=== PATIENT | male | born 1965 | race Caucasian/White ===

== ENCOUNTER 2021-10-17 17:15 | Emergency (ER) | payer OTHER, SELFPAY ==
[2021-10-17 17:16] VITALS: BP 156/88; PULSE 72; RESP 16; TEMP 36.4; O2SAT 100; BMI 43.0
[2021-10-17] MEDS: Lidocaine 1% (20 ml mdv) 20 ML Vial INFILT (18:05)
--- NOTE | 2021-10-17 18:16 | EDS_ITS ---
HPI History of Present Illness Chief Complaint: Head Injury Informant: patient and spouse/S.O. Narrative Narrative: 56-year-old male sustained a mechanical fall striking his head on the ground. No loss of conscious. No nausea vomiting. He is not currently on any blood thinners. Patient notes laceration to the vertex of his scalp. [facility] Medical History (Updated 10/17/21 @ 18:[address] Marito Alfaro DO) Chronic venous insufficiency Colon cancer Diabetes mellitus Hypercholesteremia Sleep apnea Home Medications citalopram 40 mg PO DAILY 04/08/15 [History Last Taken Unknown] fluticasone propionate 2 spray NASAL DAILY 04/08/15 [History Last Taken Unknown] multivitamin with folic acid [Thera] 1 tab PO DAILY 04/08/15 [History Last Taken Unknown] sitagliptin [Januvia] 100 mg PO DAILY 04/08/15 [History Last Taken Unknown] ferrous sulfate 324 mg PO BIDCM 06/21/16 [History Last Taken Unknown] insulin detemir U-100 [Levemir FlexPen] 20 units SUBCUT QHS 06/21/16 [History Last Taken Unknown] lisinopril 20 mg PO DAILY 06/21/16 [History Last Taken Unknown] metformin 1,000 mg PO BID 06/21/16 [History Last Taken Unknown] Allergy/AdvReac Type Severity Reaction Status Date / Time Tetanus Vaccines and Toxoid AdvReac Nausea Verified 10/17/21 17:17 [Tetanus Vaccines & Toxoid] Social History (Updated 10/17/21 @ 18:[address] Marito Alfaro DO) Smoking Status: Never smoker substance use type: does not use ROS ROS ED Constitutional Constitutional ED: Denies chills, fever(s) or weight loss Eyes Eyes: Denies change in vision or diplopia ENT ENT ED: Denies ear pain, rhinorrhea or sore throat Cardiovascular Cardiovascular: Denies chest pain, orthopnea, palpitations or racing heartbeat Respiratory/Chest Respiratory/Chest: Denies cough, dyspnea or orthopnea Gastrointestinal Gastrointestinal: Denies abdominal pain, diarrhea, nausea or vomiting Genitourinary Genitourinary ED: Denies dysuria, hematuria or urinary frequency Musculoskeletal Musculoskeletal: Denies arthralgias or myalgias Integumentary Reports other Details: Scalp laceration ; Denies abscess or rash Neurologic Neurologic: Denies headache(s) or weakness Psychiatric Psychiatric: Denies anxiety, depression, suicidal ideation or suicidal thoughts Endocrine Endocrinology: Denies polydipsia, polyphagia or polyuria Allergic/Immunologic Allergic/Immunologic ED: Denies mouth swelling, tongue swelling or urticaria EXAM Physical Exam Const Vital Signs: 10/17/21 17:16 Temperature 97.5 F L Temperature Source Temporal Pulse Rate 72 Respiratory Rate 16 Blood Pressure 156/88 H Blood Pressure Mean 110 Pulse Ox 100 Positive well nourished and well developed General Appearance ED: well developed HEENT Reports normocephalic, head/scalp atraumatic, TM's clear and moist mucous membranes HEENT Narrative: See skin exam trauma Tympanic Membrane ED: Yes TM's clear Eyes PERRL and EOMs intact bilaterally Neck no lymphadenopathy, supple and no JVD Resp normal respiratory effort and clear to auscultation bilaterally Cardio regular rate, regular rhythm and no murmurs Rate: regular rate GI normal to inspection, nondistended, normoactive bowel sounds and non-tender Palpation: soft Back/Spine no CVA tenderness and normal ROM Extremity normal to inspection General Extremety ED: Negative for edema General Extremity: Negative for edema Neuro oriented x3 and CN's II-XII intact bilaterally Sensorium / Orientation: alert Motor Exam: strength 5/5 throughout Psych mental status grossly normal Mood & Affect: Negative for depressed or tearful Skin no rashes or lesions noted Skin Narrative: There is a 6 cm linear laceration. The medial 2 cm is a superficial skin tear. The lateral 4 cm distal full-thickness laceration. Mild venous oozing. MDM MDM MDM Narrative Medical decision making narrative: Wound was locally anesthetized using 1% lidocaine. Is washed with Shur-Clens and explored. The 4 cm laceration that was full-thickness was closed using 6 simple interrupted 4-0 Ethilon sutures. The superficial skin tear had the remaining skin smoothed out. It was dressed with a Vaseline coated gauze and then dressed with absorbent pad. Wound care discussed with patient return if worsening or concerns Discharge Plan Triage Chief Complaint: Head Injury ED Provider: Marito Alfaro Dx/Rx/DC Orders Clinical Impression: Laceration of scalp Instructions: ED Laceration Scalp Stitches or Steven Prescriptions: No Action citalopram 40 MG tablet 40 mg PO DAILY RF: 0 fluticasone propionate 1 SPRAY Nasal.Sry 2 spray NASAL DAILY RF: 0 sitagliptin [Januvia] 100 MG tablet 100 mg PO DAILY RF: 0 multivitamin with folic acid [Thera] 1 TABLET tablet 1 tab PO DAILY RF: 0 lisinopril 20 MG tablet 20 mg PO DAILY RF: 0 ferrous sulfate 325 MG tablet 324 mg PO BIDCM RF: 0 metformin 1,000 MG tablet 1,000 mg PO BID RF: 0 insulin detemir U-100 [Levemir FlexTouch U-100 Insuln] 100 UNITS/ML Insuln.Pen 20 units subcut QHS RF: 0 Primary Care Provider: Amandeep Rothman Referrals: Amandeep Rothman MD [Primary Care Provider] - 7 Days for suture removal Disposition Disposition: Home, Self Care
[2021-10-17 18:23] VITALS: BP 161/76; PULSE 68; RESP 18; O2SAT 99
== END 2021-10-17 18:28 | disposition home or self-care (01) ==
PROVIDERS: Emergency Provider Emergency Medicine; PCP Family Medicine
DX: S01.01XA Laceration without foreign body of scalp, initial encounter (principal); W19.XXXA Unspecified fall, initial encounter; Y93.9 Activity, unspecified; Y92.9 Unspecified place or not applicable; I87.2 Venous insufficiency (chronic) (peripheral); E11.9 Type 2 diabetes mellitus without complications; E78.00 Pure hypercholesterolemia, unspecified; G47.30 Sleep apnea, unspecified; Z85.038 Personal history of other malignant neoplasm of large intestine; Z79.4 Long term (current) use of insulin; Z79.899 Other long term (current) drug therapy
CPT/HCPCS: 12002; 99284

== ENCOUNTER 2023-05-02 16:15 | Emergency (ER) | payer MEDICAID, SELFPAY ==
[2023-05-02 16:16] VITALS: BP 115/68; PULSE 84; RESP 16; TEMP 36.4; O2SAT 95; BMI 42.6
--- NOTE | 2023-05-02 16:53 | EX.ED.DYSGE1 ---
HPI History of Present Illness Chief Complaint: Nosebleed Narrative Narrative: Patient presents with epistaxis. This started just prior to arrival. No trauma. He has a history of epistaxis in the past. He is not anticoagulated [facility] Medical History (Updated 05/02/23 @ 16:[address] Brandon Burns MD) Chronic venous insufficiency Colon cancer Diabetes mellitus Hypercholesteremia Sleep apnea Home Medications citalopram 40 mg tablet 40 mg PO DAILY 04/08/15 [History Last Taken Unknown] fluticasone propionate 50 mcg/actuation nasal spray,suspension 2 spray DAILY 04/08/15 [History Last Taken Unknown] multivitamin with folic acid 400 mcg tablet (Thera) 1 tab PO DAILY 04/08/15 [History Last Taken Unknown] sitagliptin phosphate 100 mg tablet (Januvia) 100 mg PO DAILY 04/08/15 [History Last Taken Unknown] ferrous sulfate 325 mg (65 mg iron) tablet 324 mg PO BIDCM 06/21/16 [History Last Taken Unknown] insulin detemir U-100 100 unit/mL (3 mL) subcutaneous pen (Levemir FlexTouch U-100 Insulin) 20 units subcut QHS 06/21/16 [History Last Taken Unknown] lisinopril 20 mg tablet 20 mg PO DAILY 06/21/16 [History Last Taken Unknown] metformin 1,000 mg tablet 1,000 mg PO BID 06/21/16 [History Last Taken Unknown] Allergy/AdvReac Type Severity Reaction Status Date / Time Tetanus Vaccines and Toxoid AdvReac Nausea Verified 05/02/23 16:18 [Tetanus Vaccines & Toxoid] Social History (Updated 10/17/21 @ 18:[address] Marito Alfaro, DO) Smoking Status: Never smoker substance use type: does not use ROS ROS ED ROS Narrative Review of systems: All systems negative except as indicated General: No fever Eyes: No visual changes ENT: As in HPI Neck: No neck pain Hematologic: No easy bleeding or easy bruising EXAM Physical Exam Narrative Exam Narrative: Physical exam General: Well nourished, Well developed, No Acute Distress Head: Normocephalic, Atraumatic Eyes: Conjunctiva not pale ENT: Patient has a nasal septal defect on the lower part of the defect midline there is a small area that is actively bleeding. No other signs of bleeding Neck: Supple, Nontender, No lymphadenopathy Skin: Normal color, No rash Const Vital Signs: 05/02/23 16:16 Temperature 97.6 F L Temperature Source Temporal Pulse Rate 84 Respiratory Rate 16 Blood Pressure 115/68 Blood Pressure Mean 83 Pulse Ox 95 Oxygen Delivery Method Room Air MDM MDM MDM Narrative Medical decision making narrative: Patient has a nasal septal defect, he tells me he is unaware of this although he has seen ENT in the past. He was cauterized, see procedure note otherwise he has no further bleeding appears well. There is no reasons for antibiotics inside impacted, there is no reasons for imaging since this looks like a chronic defect. I will refer back to ENT. Procedures Other Procedures Procedure(s): Epistaxis Verbal consent I used silver nitrate stick to cauterize the small punctate bleeding from the nasal septal defect. Bleeding stopped patient tolerated procedure well. Discharge Plan Triage Chief Complaint: Nosebleed ED Provider: Brandon Burns Dx/Rx/DC Orders Clinical Impression: Epistaxis, Nasal septal defect Instructions: Nosebleed Prescriptions: No Action citalopram 40 MG tablet 40 mg PO DAILY Label Comments: depression fluticasone propionate 1 SPRAY spray,suspension 2 spray NASAL DAILY Label Comments: allergies sitagliptin phosphate [Januvia] 100 MG tablet 100 mg PO DAILY Label Comments: diabetes multivitamin with folic acid [Thera] 1 TABLET tablet 1 tab PO DAILY Label Comments: vitamin supplement lisinopril 20 MG tablet 20 mg PO DAILY ferrous sulfate 325 MG tablet 324 mg PO BIDCM metformin 1,000 MG tablet 1,000 mg PO BID insulin detemir U-100 [Levemir FlexTouch U100 Insulin] 100 UNITS/ML insulin pen 20 units subcut QHS Primary Care Provider: Amandeep Rothman Referrals: Amandeep Rothman MD [Primary Care Provider] - Agustin Chu MD [Med Staff - Active Staff] - 3-5 Days Disposition Disposition: Home, Self Care
== END 2023-05-02 17:14 | disposition home or self-care (01) ==
PROVIDERS: Emergency Provider Emergency Medicine; PCP Family Medicine; Visit Provider Emergency Medicine
DX: R04.0 Epistaxis (principal); E11.9 Type 2 diabetes mellitus without complications; Z79.4 Long term (current) use of insulin; E78.00 Pure hypercholesterolemia, unspecified; J34.2 Deviated nasal septum; Z79.899 Other long term (current) drug therapy; Z79.84 Long term (current) use of oral hypoglycemic drugs
CPT/HCPCS: 30901; 99282

== ENCOUNTER 2023-05-19 16:00 | Outpatient (RCR) | payer MEDICAID, SELFPAY ==
--- NOTE | 2023-04-11 17:52 | HP.OTEVAL ---
Patient's Visit Information ROBERT OVIEDO is a 57 year old M, referred to Occupational Therapy by Dr. Ash Peñaloza MD, with a diagnosis of Right CTS/ Ulnar nerve. 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 pt states he has had tingling and numbness of BUE for over a year. pt states he has had right CTR and Ulnar- pt had had left CTR done several yeas ago-. pt states he was working for [employer] until prior to his right CTR and ulnar nerve sx. 2020. pt is poor historian on dates, dx and procedures to right/left UE/ and neck. pt is right handed. 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 pt will demo increase bilateral automat car attendant strength by 5# or greater to increase pts ind. with opening jar lids by d/c. pt will demo understanding of HEP to increase UB strength for increase ind,with ADls by d.c Goal:: pt will demo understanding of adaptive anurag. ie terrazas ring in zipper, rubber band button etc. to increase pts ind to HEENA by d.c. pt will demo understanding of ad. eq. to increase pts ind. by d/c. 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 pt would benefit from skilled OT services to ed. pt on strengthening (postural and UB/automat car attendant pinch ) and ad. eq. or home modification to continue to increase his ind. with dressing tasks. Today therapist ed. dx and pt will return for 2-3 visits to ed. on HEP - pt will need handouts to follow HEP. Once pt demo ind. with HEP he will be d/c. pt demo understanding and agree to POC. Rehabilitation Potential: Good - Anticipated Interventions Strengthening, Joint Protection/Energy Conservation, Ergonomic Education, ADL Training, Education re assistive Equipment, Education re Diagnosis, Home Program - Visit Plan Frequency: 1-2x /Week Duration: 2-4 Weeks TEXT: Thank you for the opportunity to evaluate your patient. For Medicare and Medicare HMO plans, please review the plan of care and approve it. It will need to be FAXED BACK to us at [phone] for Medicare purposes. Please let me know if there are questions or concerns regarding this plan of care. Physician Signature: Date:
--- NOTE | 2023-05-19 16:54 | HP.OT.NRP ---
Patient Information Patient Information: ROBERT OVIEDO was seen in my office for initial evaluation on 04/11/23. The following Plan of Care was established for this patient: POC Established Initial Frequency: 1-2x /Week Initial Duration: 2-4 Weeks Plan: Cont POC Anticipated Interventions Anticipated Interventions: Strengthening, Joint Protection/Energy Conservation, Ergonomic Education, ADL Training, Education re assistive Equipment, Education re Diagnosis and Home Program Last Seen Last Seen: This patient was last seen in our office 05/19/23. Pertinent comments regarding their Occupational therapy will appear below: Patient seen for a total of 6 visits to improve UB strength and establish a HEP. Patient indep with theraband exercises to improve and maintain upper body strength as well as nerve glide exercises to maintain nerve health and ROM. Patient continues to report bilateral arm numbness from shoulders to hands with no improvement. Discussed following up with medical team to further evaluate this. Patient discharged from OT at this time. At this point I will be discontinuing this patient from occupational therapy. I would be happy to see this patient again in the future if found appropriate by the physician. Thank you! Jessi Eldridge
== END 2023-05-19 19:00 | disposition home or self-care (01) ==
LOC: OT 16:00
PROVIDERS: PCP Family Medicine; Referring Provider Orthopaedic Surgery; Visit Provider Orthopaedic Surgery
DX: G56.01 Carpal tunnel syndrome, right upper limb (principal); G56.23 Lesion of ulnar nerve, bilateral upper limbs; M48.02 Spinal stenosis, cervical region; E11.43 Type 2 diabetes mellitus with diabetic autonomic (poly)neuropathy; C77.2 Secondary and unspecified malignant neoplasm of intra-abdominal lymph nodes; Z79.4 Long term (current) use of insulin
CPT/HCPCS: 97110; 97166; 97530

== ENCOUNTER 2024-05-03 12:01 | Inpatient (IN) | payer MEDICAID, SELFPAY ==
[2024-05-03] VITALS (10 sets, daily range): BP systolic 91–139; BP diastolic 60–93; PULSE 90–99; RESP 12–20; TEMP 36.6–37.3; O2SAT 89–100; BMI 36.7
--- NOTE | 2024-05-03 12:59 | CT_ITS ---
STUDY: CT BRAIN WITHOUT CONTRAST REASON FOR EXAM: Male, 58 years old. Injury due to syncopal episode. RADIATION DOSAGE (If Supplied By Facility): CTDIvol = ( 44.99 ) mGy, DLP = ( 866.41 ) mGycm TECHNIQUE: Transaxial CT imaging of the brain was performed without administration of intravenous contrast material. Individualized dose optimization techniques were used for this CT. COMPARISON: No relevant priors. FINDINGS: Normal soft tissue structures. Normal calvarium. There is mild cerebral atrophy with widening of the extra-axial spaces and ventricular dilatation. Normal white matter tracts of the cerebral hemispheres. Normal basal ganglia and thalami. Normal brainstem. Normal cerebellum. There is no intracranial hemorrhage. There are no findings of an acute ischemic infarction. Atherosclerotic plaque formation of the cavernous portions of the internal carotid arteries bilaterally. Mild mucosal thickening of the ethmoid sinuses bilaterally CT/Brain/Head without Contrast IMPRESSION: Chronic involutional changes of the brain. Electronically Signed: Kain Pastrana MD at 15:07 EDT ,
--- NOTE | 2024-05-03 13:00 | EKG12_ITS ---
Test Reason : SYNCOPE Blood Pressure : / mmHG Vent. Rate : 090 BPM Atrial Rate : 090 BPM P-R Int : 174 ms QRS Dur : 092 ms QT Int : 390 ms P-R-T Axes : 061 003 062 degrees QTc Int : 477 ms Normal sinus rhythm Normal ECG Confirmed by ISAAC RENEE, LINSEY ([id number]), managing editor EDITH HERNANDEZ ([id number]) on 05/04/2024 1:42:13 PM Referred By: Confirmed By:LINSEY GRAY MD
--- NOTE | 2024-05-03 13:03 | CT_ITS ---
STUDY: CT CHEST, ABDOMEN T PELVIS WITHOUT CONTRAST REASON FOR EXAM: Male, 58 years old. Pulmonary embolism. Possible rib fracture, syncope episode RADIATION DOSAGE (If Supplied By Facility): CTDIvol = ( 26.76 ) mGy, DLP = ( 2448.32 ) mGycm TECHNIQUE: Transaxial imaging was performed without the administration of intravenous contrast material. Individualized dose optimization techniques were used for this CT. COMPARISON: No relevant priors. FINDINGS: CHEST Minimal increased markings at the lung bases slightly more prominent on the left side suggestive of mild scarring. There is no demonstrated pleural abnormality. There are calcifications of the coronary arteries. There are small lymph nodes within the mediastinum, which are normal in size and morphology most compatible with reactive lymph hyperplasia. Normal hilar regions. Normal unenhanced pulmonary arteries. There is atherosclerotic calcification of the aortic arch with tortuosity and elongation of the aortic arch and descending thoracic aorta. There are multi-level degenerative changes of the thoracic spine. ABDOMEN Normal liver. There are multiple gallstones. Normal spleen. Normal pancreas. Normal bilateral adrenal glands. Normal right kidney. Normal left kidney. Normal visualized stomach. Normal small intestine. There are multiple colonic diverticula consistent with diverticulosis. The appendix is visualized and appears normal. There is scattered atherosclerotic calcification of the abdominal aorta, without a demonstrated aneurysm. Normal inferior vena cava. Normal retroperitoneum. There is a small umbilical hernia containing fat. There is a 2.1 cm fat-containing right inguinal lymph node. Bilateral inguinal lymph nodes. There are degenerative changes of the visualized lumbar spine. 50% loss of height of the L5 vertebrae. PELVIS Normal urinary bladder. Prostatic calcifications. There is no pelvic fluid. There is no pelvic lymphadenopathy or mass lesion. There is diffuse atherosclerotic calcification of the pelvic arteries. CT/CT Chest, Abd, Pelvis WO Cont IMPRESSION: Mild increased markings at the lung bases suggestive of scarring slightly more prominent on the left side. Small bilateral inguinal hernias 50% loss of height of the L5 vertebra. Sigmoid diverticulosis. Electronically Signed: Kain Pastrana MD at 15:14 EDT ,
--- NOTE | 2024-05-03 13:07 | EDS_ITS ---
HPI History of Present Illness Chief Complaint: Syncope Informant: patient and family Narrative Narrative: 58-year-old diabetic male presenting to the emergency room chief complaint of syncope. Patient states that a couple nights ago he got up started feeling a l ittle nauseous lightheaded and having a syncopal episode when she fell into the door. He notes abrasion to the forehead and injury to the left ribs. Today he had incontinence while sitting in his chair sleeping. He states that that is not necessarily uncommon for him but seems to have been increasing in frequency recently. He was at the wound center about a month ago and was on antibiotics for some lower extremity infection. He states that he had significant lymphedema which has gotten better. He has not gone back to the wound center. Family states that his color seems off. Patient states that he feels poorly. [facility] Medical History Colon cancer Chronic venous insufficiency Sleep apnea Hypercholesteremia Diabetes mellitus Home Medications ?Medication ?Instructions ?Recorded ?Last Taken ?Type lisinopril 20 mg tablet 20 mg PO DAILY BLOOD PRESSURE 06/21/16 Unknown History duloxetine 30 mg capsule,delayed 30 mg PO DAILY DEPRESSION 05/03/24 Unknown History release furosemide 40 mg tablet 40 mg PO DAILY EDEMA 05/03/24 Unknown History insulin glargine 100 unit/mL (3 30 unit subcut QPM DIABETES 05/03/24 Unknown History mL) subcutaneous pen (Lantus Solostar U-100 Insulin) metformin 500 mg tablet,extended 2,000 mg PO QPM DIABETES 05/03/24 Unknown History release 24 hr pravastatin 40 mg tablet 40 mg PO DAILY CHOLESTEROL 05/03/24 Unknown History sertraline 100 mg tablet 200 mg PO DAILY 05/03/24 Unknown History spironolactone 25 mg tablet 25 mg PO DAILY BLOOD PRESSURE 05/03/24 Unknown History Allergy/AdvReac Type Severity Reaction Status Date / Time Tetanus Vaccines and Toxoid AdvReac Nausea Verified 05/02/23 16:18 (Tetanus Vaccines & Toxoid) Social History Smoking Status: Never smoker substance use type: does not use ROS ROS ED Constitutional Constitutional ED: Denies chills, fever(s) or weight loss Eyes Eyes: Denies change in vision or diplopia ENT ENT ED: Reports other Details: Nasal congestion ; Denies ear pain, rhinorrhea or sore throat Cardiovascular Cardiovascular: Reports other Details: Syncope. Left anterior and mid axillary rib pain ; Denies orthopnea, palpitations or racing heartbeat Respiratory/Chest Respiratory/Chest: Reports cough; Denies dyspnea or orthopnea Gastrointestinal Gastrointestinal: Denies abdominal pain, diarrhea, nausea or vomiting Genitourinary Genitourinary ED: Denies dysuria, hematuria or urinary frequency Musculoskeletal Musculoskeletal: Denies arthralgias or myalgias Integumentary Reports other Details: Forehead abrasion ; Denies abscess or rash Neurologic Neurologic: Denies headache(s) or weakness Psychiatric Psychiatric: Denies anxiety, depression, suicidal ideation or suicidal thoughts Endocrine Endocrinology: Denies polydipsia, polyphagia or polyuria Allergic/Immunologic Allergic/Immunologic ED: Denies mouth swelling, tongue swelling or urticaria EXAM Physical Exam Const Vital Signs: 05/03/24 12:01 05/03/24 12:01 05/03/24 13:26 Temperature 97.9 F Temperature Source Temporal Pulse Rate 94 95 Respiratory Rate 14 12 Respiratory Effort Normal Non-Labored Respiratory Pattern Normal Blood Pressure 97/74 115/67 Blood Pressure Mean 81 83 Pulse Ox 98 100 Oxygen Delivery Method Room Air Room Air 05/03/24 14:15 05/03/24 15:15 05/03/24 16:00 Temperature 98.2 F 99 F 99 F Temperature Source Temporal Oral Oral Pulse Rate 90 92 99 Respiratory Rate 14 14 13 Respiratory Effort Respiratory Pattern Blood Pressure 136/79 H 139/93 H 118/70 Blood Pressure Mean 98 108 86 Pulse Ox 97 93 93 Oxygen Delivery Method Room Air Room Air Room Air MDM MDM MDM Narrative Medical decision making narrative: Differential diagnosis includes cellulitis syncope ACS cardiac dysrhythmia. Electrolyte abnormalities dehydration intracranial hemorrhage/hematoma, skull fracture rib fracture chest contusion. CT head demonstrates no acute fracture or hemorrhage or hematoma. CT of the chest was obtained which on my review demonstrates a nondisplaced rib fracture of about ribs 5 anterior lateral left side. Please see radiology read of the CTs for further details. White count returns at 8.2 with a hemoglobin 12.8 and platelet count of 258. INR 1.5 with a PTT of 35 glucose 554 lactic acid 1.7 creatinine now 6.40 with a BUN of 69. I believe this to be new from what my understanding of his prior labs are. CO2 is 24 anion gap of 7. Urinalysis demonstrates no overt infection lipase curiously greater than 250 troponin 9 liver enzymes showed only an alk phos of 121. Wound culture and blood cultures were obtained. Patient received vancomycin and Zosyn I ordered IV fluids. He has received morphine and Zofran for pain. I also ordered 10 units of insulin. Plan is admission into the hospital for further care. History & Record Review Discussion w/independent historian: Patient and Family Lab Data Attestation: I reviewed the patient's lab results. Labs: Laboratory Results - last 24 hr 05/03/24 05/03/24 13:12 13:30 WBC 8.2 RBC 4.40 L Hgb 12.8 L Hct 36.7 L MCV 83.4 MCH 29.1 MCHC 34.9 RDW Std Deviation 44.6 H RDW Coeff of Henri 14.6 Plt Count 258 MPV 9.9 Immature Gran % (Auto) 0.900 Neut % (Auto) 66.8 Lymph % (Auto) 18.1 L [place] % (Auto) 11.0 H Eos % (Auto) 2.8 Baso % (Auto) 0.4 Absolute Neuts (auto) 5.5 Absolute Lymphs (auto) 1.48 Nucleated RBC % 0 PT 17.9 H INR 1.5 APTT 35.0 Sodium 121 L Potassium 4.4 Chloride 90 L Carbon Dioxide 24.0 Anion Gap 7 BUN 69 H Creatinine 3.40 H Estim Creat Clear Calc 29.50 Est GFR (MDRD) Af Amer 24 L Est GFR (MDRD) Non-Af 20 L BUN/Creatinine Ratio 20.3 H Glucose 554 H* Lactic Acid 1.7 Calcium 8.9 Magnesium 2.6 Total Bilirubin 0.70 Direct Bilirubin 0.26 AST 19 ALT 17 Alkaline Phosphatase 121 H Troponin I High Sens 9 B-Natriuretic Peptide 24.4 Total Protein 7.3 Albumin 2.6 L Globulin 4.7 H Lipase > 250 H Urine Color Yellow Urine Clarity Clear Urine pH 5.0 Ur Specific [place] 1.020 Urine Protein 30 H Urine Glucose (UA) 1000 H Urine Ketones Negative Urine Occult Blood 50 H Urine Nitrite Negative Urine Bilirubin Negative Urine Urobilinogen Normal Ur Leukocyte Esterase 25 H Urine RBC 0-5 SEEN Urine WBC 0-5 SEEN Ur Squamous Epith Cells 0-5 SEEN Amorphous Sediment 1+ Urine Bacteria 1+ Urine Mucus 0 SEEN Radiography Diagnostic Testing: Clinical Impression(s) from Imaging Studies Brain CT 05/03/24 12:59 IMPRESSION: Chronic involutional changes of the brain. Electronically Signed: Kain Pastrana MD at 15:07 EDT , Chest/Abdomen/Pelvis CT 05/03/24 13:03 IMPRESSION: Mild increased markings at the lung bases suggestive of scarring slightly more prominent on the left side. Small bilateral inguinal hernias 50% loss of height of the L5 vertebra. Sigmoid diverticulosis. Electronically Signed: Kain Pastrana MD at 15:14 EDT , EKG Initial EKG: Attestation: I personally reviewed and interpreted this EKG as follows: Comments: NSR 90 bpm Management Discussion w/another healthcare provider: Hospitalist (Dr. Varela) Discharge Plan Dx/Rx/DC Orders Clinical Impression: Lymphedema of both lower extremities, Bilateral lower leg cellulitis, Left rib fracture, Elevated lipase, Uncontrolled diabetes mellitus, Syncope, Abrasion of forehead, Contusion of forehead, Hyperosmolar hyperglycemic state (HHS), ERICA (acute kidney injury) Disposition Disposition: Acute Care Hospital [facility]
[2024-05-03 13:24] LABS: Absolute Lymphocyte Count 1.48 X10^3/uL (0.83-4.51); Absolute Neutrophil Count 5.5 X10^3/uL (2.0-7.7); Basophil# 0.03 X10^3/uL; Basophil% 0.4 % (0-1); Eosinophil# 0.23 X10^3/uL; Eosinophils% 2.8 % (0-5); Hematocrit 36.7 % (40-54); Hemoglobin 12.8 g/dL (13.0-16.5); Lymphocyte # 1.48 X10^3/ul (0.83-4.51); Lymphocyte % 18.1 % (19-41); Mean Corp Hgb Conc 34.9 g/dL (32-36); Mean Corpuscular Hgb 29.1 pg (27.0-32.0); Mean Corpuscular Volume 83.4 fL (80-94); Mean Platelet Vol. 9.9 fl (6.2-12.0); NRBC Flagged by Analyzer 0 % (0-5); Neutrophil # 5.46 X10^3/uL (2.7-7.7); Neutrophil % 66.8 % (47-70); Platelet Count 258 K/mm3 (150-450); RBC Distribution Width CV 14.6 % (11.6-14.6); RBC Distribution Width SD 44.6 fl (35.1-43.9); White Blood Count 8.2 K/mm3 (4.4-11.0)
[2024-05-03 13:36] LABS: International Normalized Ratio 1.5; Prothrombin Time (Protime)PT. 17.9 SECONDS (11.7-14.9)
[2024-05-03 13:45] LABS: BNP,B-Type NATRIURETIC PEPTIDE 24.4 pg/mL (0-100)
[2024-05-03 13:53] LABS: Mucous, Urine 0 SEEN /hpf (<or=2+)
[2024-05-03 13:58] LABS: Color, Urine Yellow (Yellow); Glucose, Dipstick 1000 mg/dl (Normal); Ketone-Dipstick Negative (Negative); Leukocyte Esterase-Dipstick 25 /ul (Negative); Nitrite-Dipstick Negative (Negative); Occult Blood-Urine 50 /ul (Negative); Protein-Dipstick 30 mg/dl (Negative); Urine Bilirubin Dipstick Negative (Negative); Urine Clarity Clear (Clear); Urine Urobilinogen Normal (Normal)
[2024-05-03 14:03] LABS: Lactic Acid 1.7 mmol/L (0.4-1.9)
[2024-05-03 14:13] LABS: Amorphous Sediment 1+; Bacteria 1+ /hpf (None Seen); Red Blood Cells-Urine 0-5 SEEN /hpf (0-5); White Blood Cells 0-5 SEEN /hpf (0-5)
[2024-05-03 14:14] LABS: Squamous Epithelial Cells - UA 0-5 SEEN /hpf (0-5)
[2024-05-03 14:32] LABS: AST(SGOT) 19 U/L (15-37); Alanine Aminotransfer ALT/SGPT 17 U/L (16-61); Albumin, Serum 2.6 g/dL (3.2-5.0); Alkaline Phosphatase 121 U/L (45-117); Anion Gap 7 (5-15); BUN 69 mg/dL (7-18); BUN/Creat Ratio 20.3 RATIO (10-20); Bilirubin, Direct 0.26 mg/dL (0.00-0.30); Calcium,Total 8.9 mg/dL (8.5-10.1); Chloride 90 mmol/L (98-107); EST Glomerular Filtration Rate 20 mL/min (>60); Est Glom Filt Rate - Afr Amer 24 mL/min (>60); Globulin 4.7 g/dL (2.2-4.2); Glucose 554 mg/dL (74-106); Lipase > 250 U/L (13-75); Magnesium 2.6 mg/dL (1.6-2.6); Potassium 4.4 mmol/L (3.5-5.1); Protein, Total 7.3 g/dL (6.4-8.2); Sodium Level 121 mmol/L (136-145); Troponin-I HS 9 pg/mL (3.0-78.0)
[2024-05-03] MEDS: Ondansetron 4 MG/2 ML Vial IV (14:55)
[2024-05-03] MEDS: Morphine 4 MG/ML Syringe IV (14:55)
--- NOTE | 2024-05-03 16:37 | PCM.HP.STD ---
[facility] - General General Date of Admission: 05/03/24 Date of Service: 05/03/24 Chief Complaint: Cellulitis HPI Narrative ROBERT OVIEDO, is a 58 M with past medical history of diabetes mellitus, CKD, obesity, lymphedema of bilateral lower limbs, sleep apnea, obesity was brought to the ED for concerns of cellulitis. Most of the history is provided by the . Over the last 1 month, she has noticed progressive decline in his functionality, and alertness. 2 days back he had? Syncopal episode and hit his head. Since then he has been even more drowsy and difficult to arouse. She has been urging him to go to the ED but he kept on refusing. Today he had urinary incontinence and was even more drowsy so the family [ and 2 sisters] decided to come bring the patient to the ED. She notices that he is having worsening wounds over bilateral lower legs for the last 1 month, he has visited the ED for the same but satisfactory treatment was not provided. Today in the ED, he is drowsy but arousable. On evaluation WBC 8.2, hemoglobin 12.8, platelet count 258, PT 17.9, INR 1.5, sodium 121, potassium 90, BUN 69, creatinine 3.4 glucose 554, albumin 2.6, globulin 4.7, lipase more than 250. Mild increased markings at the lung bases suggestive of scarring slightly more prominent on the left side. CT abdomen showed small bilateral inguinal hernias, 50% loss of height of the L5 vertebra. Sigmoid diverticulosis. CT head showed there is mild cerebral atrophy with widening of the extra-axial spaces and ventricular dilatation. Normal white matter tracts of the cerebral hemispheres. Normal basal ganglia and thalami. Normal brainstem. Normal cerebellum. [facility] Medical History Colon cancer Chronic venous insufficiency Sleep apnea Hypercholesteremia Diabetes mellitus Home Medications ?Medication ?Instructions ?Recorded ?Last Taken ?Type lisinopril 20 mg tablet 20 mg PO DAILY BLOOD PRESSURE 06/21/16 Unknown History duloxetine 30 mg capsule,delayed 30 mg PO DAILY DEPRESSION 05/03/24 Unknown History release furosemide 40 mg tablet 40 mg PO DAILY EDEMA 05/03/24 Unknown History insulin glargine 100 unit/mL (3 30 unit subcut QPM DIABETES 05/03/24 Unknown History mL) subcutaneous pen (Lantus Solostar U-100 Insulin) metformin 500 mg tablet,extended 2,000 mg PO QPM DIABETES 05/03/24 Unknown History release 24 hr pravastatin 40 mg tablet 40 mg PO DAILY CHOLESTEROL 05/03/24 Unknown History sertraline 100 mg tablet 200 mg PO DAILY 05/03/24 Unknown History spironolactone 25 mg tablet 25 mg PO DAILY BLOOD PRESSURE 05/03/24 Unknown History Allergy/AdvReac Type Severity Reaction Status Date / Time Tetanus Vaccines and Toxoid AdvReac Nausea Verified 05/02/23 16:18 (Tetanus Vaccines & Toxoid) Social History Smoking Status: Never smoker substance use type: does not use ROS Review of Systems ROS Unobtainable: Denies due to encephalopathy, due to endotracheal tube, due to mental condition, due to mental status or other Constitutional Constitutional: Reports change in weight, fatigue, malaise and weakness Eyes Eyes: Denies blurry vision, change in eye color, change in vision, discharge from eye(s), double vision, erythema, eye pain, loss of vision or other ENT HEENT: Denies abnormal hearing, dysphagia, ear pain, epistaxis, headache(s), hearing loss, nasal congestion, nasal discharge, post nasal drip, sinus pressure, sore throat or other Cardiovascular Cardiovascular: Reports chest pain, dyspnea on exertion and edema Respiratory/Chest Respiratory/Chest: Denies cough, dyspnea, excessive phlegm production, hemoptysis, productive cough, shortness of breath at rest, shortness of breath with exertion, wheezing or other Gastrointestinal Gastrointestinal: Denies abdominal pain, coffee ground emesis, constipation, diarrhea, dyspepsia, hematemesis, hematochezia, loose stools, melena, nausea, vomiting or other Genitourinary Genitourinary: Reports urinary incontinence Musculoskeletal Musculoskeletal: Reports back pain and joint pain Neurologic Neurologic: Reports confusion and disequilibrium Hematologic/Lymphatic Hematologic/Lymphatic: Reports other Allergic/Immunologic Allergic/Immunologic: Reports other Vital Signs Vital Signs Vital Signs: 05/03/24 12:01 05/03/24 12:01 05/03/24 13:26 Temperature 97.9 F Temperature Source Temporal Pulse Rate 94 95 Respiratory Rate 14 12 Respiratory Effort Normal Non-Labored Respiratory Pattern Normal Blood Pressure 97/74 115/67 Blood Pressure Mean 81 83 Pulse Ox 98 100 Oxygen Delivery Method Room Air Room Air 05/03/24 14:15 05/03/24 15:15 05/03/24 16:00 Temperature 98.2 F 99 F 99 F Temperature Source Temporal Oral Oral Pulse Rate 90 92 99 Respiratory Rate 14 14 13 Respiratory Effort Respiratory Pattern Blood Pressure 136/79 H 139/93 H 118/70 Blood Pressure Mean 98 108 86 Pulse Ox 97 93 93 Oxygen Delivery Method Room Air Room Air Room Air Weight Weight: 256 lb 2.834 oz Body Mass Index (BMI) 36.7 Physical Exam Const alert and oriented x3 Constitutional Narrative: Drowsy but arousable HEENT normocephalic Resp normal respiratory effort and no retractions Cardio regular rate and regular rhythm Extremity Extremity Narrative: Bilateral nonpitting edema, ulcerated lesions on the mcneil with erythema, swelling and discharge. Neuro oriented x3 and no focal motor deficits Results Medical Records Data Attestation: I reviewed the patient's medical records Lab / Micro Data 05/03/24 13:12 05/03/24 13:12 Labs: Laboratory Results - last 24 hr 05/03/24 13:12: WBC 8.2, RBC 4.40 L, Hgb 12.8 L, Hct 36.7 L, MCV 83.4, MCH 29.1, MCHC 34.9, RDW Std Deviation 44.6 H, RDW Coeff of Henri 14.6, Plt Count 258, MPV 9.9, Immature Gran % (Auto) 0.900, Neut % (Auto) 66.8, Lymph % (Auto) 18.1 L, [place] % (Auto) 11.0 H, Eos % (Auto) 2.8, Baso % (Auto) 0.4, Absolute Neuts (auto) 5.5, Absolute Lymphs (auto) 1.48, Nucleated RBC % 0, PT 17.9 H, INR 1.5, APTT 35.0, Sodium 121 L, Potassium 4.4, Chloride 90 L, Carbon Dioxide 24.0, Anion Gap 7, BUN 69 H, Creatinine 3.40 H, Estim Creat Clear Calc 29.50, Est GFR (MDRD) Af Amer 24 L, Est GFR (MDRD) Non-Af 20 L, BUN/Creatinine Ratio 20.3 H, Glucose 554 H*, Lactic Acid 1.7, Calcium 8.9, Magnesium 2.6, Total Bilirubin 0.70, Direct Bilirubin 0.26, AST 19, ALT 17, Alkaline Phosphatase 121 H, Troponin I High Sens 9, B-Natriuretic Peptide 24.4, Total Protein 7.3, Albumin 2.6 L, Globulin 4.7 H, Lipase > 250 H 05/03/24 13:30: Urine Color Yellow, Urine Clarity Clear, Urine pH 5.0, Ur Specific [place] 1.020, Urine Protein 30 H, Urine Glucose (UA) 1000 H, Urine Ketones Negative, Urine Occult Blood 50 H, Urine Nitrite Negative, Urine Bilirubin Negative, Urine Urobilinogen Normal, Ur Leukocyte Esterase 25 H, Urine RBC 0-5 SEEN, Urine WBC 0-5 SEEN, Ur Squamous Epith Cells 0-5 SEEN, Amorphous Sediment 1+, Urine Bacteria 1+, Urine Mucus 0 SEEN Micro: Microbiology 05/03/24 13:15 Mucosa - Nose SARS-CoV-2, Influenza & RSV (PCR) - Final Imaging Radiology Impression Brain CT 05/03/24 12:59 IMPRESSION: Chronic involutional changes of the brain. Electronically Signed: Kain Pastrana MD at 15:07 EDT , Chest/Abdomen/Pelvis CT 05/03/24 13:03 IMPRESSION: Mild increased markings at the lung bases suggestive of scarring slightly more prominent on the left side. Small bilateral inguinal hernias 50% loss of height of the L5 vertebra. Sigmoid diverticulosis. Electronically Signed: Kain Pastrana MD at 15:14 EDT , Assessment & Plan Assessment/Plan (1) Left rib fracture: PLAN: Plan 58-year-old male with history of poorly controlled type 2 diabetes, chronic venous insufficiency with bilateral lower limb ulcers, JOSE, obesity, presents to the ED with concerns regarding syncopal episode in the setting of bilateral lower limb cellulitis, hyperglycemia, ERICA on CKD. #Bilateral lower extremity cellulitis: -Has a history of chronic venous insufficiency and has been following up with wound care for the last few years -Will start him on Zosyn plus vancomycin at this time given the longstanding infection -Infectious disease consult -Lower extremity Doppler to rule out peripheral artery disease -Limb elevation, wound care consult -Echocardiogram to evaluate the cardiac status #Fall -He has rib fracture and concerns regarding pain -No desaturation -Pain control with tylenol for now #Type 2 diabetes -Poorly controlled -Restart home insulin -Insulin sliding scale -Nutrition consult -PT/OT evaluation -Serum TSH levels -Will need outpatient endocrinology follow-up #ERICA on CKD -Likely secondary to the hyperglycemia -Will get an echocardiogram to evaluate the cardiac status -IV fluids along with correction of glucose levels -Monitor creatinine, urine output #JOSE: -Monitor his oxygenation while sleeping -Not on any CPAP at this time #Obesity -Nutrition consult, manage diabetes as above #Depression: Continue duloxetine, sertraline #DVT prophylaxis -Injection enoxaparin 40 mg subcu -Encourage mobilization
[2024-05-03] MEDS: Morphine 2 MG/ML Syringe IV (17:01)
[2024-05-03] MEDS: Piperacil/Tazobactam 4.5 GM in 0.9% Normal Saline (100mL MB+) 100 ML IV (17:02)
[2024-05-03] MEDS: 0.9% Normal Saline (1000mL) 1,000 ML 999 ML IV ×2 (17:03→17:10)
--- NOTE | 2024-05-03 17:14 | ECHOCS_ITS ---
Reason For Study: CHF Procedure This was a 2D Doppler, Color Flow transthoracic echocardiogram. The study was technically difficult. Contrast injection was performed. Exam performed portable in patient room. Left Ventricle Normal LV size. Left ventricular systolic function is normal. The estimated ejection fraction is 60 %. No regional wall motion abnormalities noted. Right Ventricle Normal RV size. Normal systolic function. Mitral Valve Mitral valve not well visualized. Tricuspid Valve The tricuspid valve is not well visualized. Aortic Valve The aortic valve is not well visualized. Pericardium/Pleural No pericardial effusion. Medication Diluted definity 2ml given slow IV push to enhance endocardial definition. MMode/2D Measurements & Calculations LVAd ap4: 36.5 cm2 SV(MOD-sp4): 62.2 ml SV(sp4-el): 66.2 ml LVLd ap4: 8.5 cm EDV(MOD-sp4): 133.9 ml EDV(sp4-el): 133.3 ml LVAs ap4: 24.0 cm2 LVLs ap4: 7.3 cm ESV(MOD-sp4): 71.7 ml ESV(sp4-el): 67.1 ml EF(MOD-sp4): 46.5 % EF(sp4-el): 49.7 % LA dimension(2D): 3.7 cm TAPSE: 1.8 cm Time Measurements MV dec time: 0.23 sec Doppler Measurements & Calculations MV E max sinan: 55.9 cm/sec Lat Peak E' Sinan: 11.9 cm/sec Med Peak E' Sinan: 6.6 cm/sec MV A max sinan: 49.2 cm/sec E/E' lat: 4.7 E/E' med: 8.4 MV E/A: 1.1 MV V2 max: 65.6 cm/sec MV dec slope: 255.1 cm/sec2 Ao V2 max: 156.3 cm/sec MV max P.7 mmHg Ao max P.8 mmHg MV V2 mean: 49.0 cm/sec Ao V2 mean: 110.5 cm/sec MV mean P.0 mmHg Ao mean P.6 mmHg MV V2 VTI: 18.5 cm Ao V2 VTI: 26.9 cm AV (velocity ratio): 0.76 LV V1 max: 117.0 cm/sec PA V2 max: 95.8 cm/sec LV V1 max P.5 mmHg PA V2 mean: 67.9 cm/sec LV V1 mean P.9 mmHg LV V1 mean: 77.8 cm/sec LV V1 VTI: 20.4 cm ECHO/Echo Complete W/ Contrast Interpretation Summary Normal LV size. Left ventricular systolic function is normal. The estimated ejection fraction is 60 %. Contrast injection was performed. Ordering Physician: Stephen Varela Referring Physician: BLAIRE LARA Performed By: Dipika Lieja RCS
[2024-05-03 18:04] LABS: Hemoglobin A1c 12.3 % (3.8-5.6)
--- NOTE | 2024-05-03 18:11 | VDLE_ITS ---
Reason For Study: SWELLING BLE RIGHT LEFT GSV is normal. GSV is normal. CFV is compressible, spontaneous, phasic, CFV is compressible, spontaneous, phasic, competent and demonstrates normal competent, and demonstrates normal augmentation. augmentation. FV is compressible, spontaneous, phasic, FV is compressible, spontaneous, phasic, competent and demonstrates normal competent and demonstrates normal augmentation. augmentation. POP V is compressible, spontaneous, phasic, POP V is compressible, spontaneous, phasic, competent and demonstrates normal competent and demonstrates normal augmentation. augmentation. T/P Trunk is compressible. T/P Trunk is compressible. PROXIMAL PVT is compressible. PROXIMAL PVT is compressible. PROXIMAL PERV is compressible. PROXIMAL PERV is compressible. Unable to assess mid to distal PVT/PERV due Unable to assess mid to distal PVT/PERV due to bandages and wounds. to bandages and wounds. Procedure This is a venous duplex using B-mode, color flow and spectral Doppler. Exam performed portable in patient room. A preliminary report was called and/or faxed to [facility]. VL/Venous Duplex US - Nick Extrem Interpretation Summary Deep veins of the bilateral lower extremities are patent and compressible segme ntally. There is no evidence of bilateral lower extremity deep vein thrombosis. The bilateral great saphenous veins appear patent and compressible segmentally. Limited study due to dressings Ordering Physician: Stephen Varela Referring Physician: Jayro Rothman Performed By: Teresa Villanueva, MERVINCS, RVT
[2024-05-03] MEDS: Vancomycin HCl 2,000 MG in 0.9% Normal Saline (500mL Bag) 500 ML 250 MG IV (20:05)
[2024-05-03] MEDS: 0.9% Saline Lock 10 ML Syringe IV (20:05)
--- NOTE | 2024-05-03 20:13 | PHA.PHARE_ITS ---
Consult Antibiotic Management Pharmacy has been consulted to manage selected antibiotic: Vancomycin Type of Intervention Type of Consult: New start Suspected Infection Suspected Infection: Skin/Soft tissue Prior Doses of Antibiotics Prior Doses of Antibiotics Received/Current Regimen: Vancomycin 2000 mg IV x 1 given 05/03/24 @ 2004, patient is also on piperacillin/ tazobactam 3.375 grams Q8H Labs Labs: Sodium 121 mmol/L (136-145) L 05/03/24 13:12 Potassium 4.4 mmol/L (3.5-5.1) 05/03/24 13:12 Chloride 90 mmol/L (98-107) L 05/03/24 13:12 Carbon Dioxide 24.0 mmol/L (21.0-32.0) 05/03/24 13:12 Anion Gap 7 (5-15) 05/03/24 13:12 BUN 69 mg/dL (7-18) H 05/03/24 13:12 Creatinine 3.40 mg/dL (0.70-1.30) H 05/03/24 13:12 Est GFR (MDRD) Af Amer 24 mL/min (>60) L 05/03/24 13:12 Est GFR (MDRD) Non-Af 20 mL/min (>60) L 05/03/24 13:12 BUN/Creatinine Ratio 20.3 RATIO (10-20) H 05/03/24 13:12 Glucose 554 mg/dL (74-106) H* 05/03/24 13:12 Microbiology Microbiology: Microbiology 05/03/24 13:15 Mucosa - Nose SARS-CoV-2, Influenza & RSV (PCR) - Final Dosing Weight Weight used for dosin kg Estimated Creatinine Clearance Estimated Creatinine Clearance: ~29 Goal Trough Goal Trough: 10-15 mcg/mL Pharmacy Plan for Drug Dosing Pharmacy Plan for Drug Dosing: Vancomycin 2000 mg IV x 1 followed by 1000 mg Q24H Pharmacy Service will continue to monitor and adjust dosing as required. Follow-Up Labs Follow-Up Labs: Trough: Vancomycin Date/Time Labs Ordered Labs to be done on [date and time ordered]: 05/05/24 @ 1930
[2024-05-03] MEDS: DULoxetine Hcl 30 MG Capsule PO (20:20)
[2024-05-03] MEDS: Insulin Glargine-YFGN 100 UNIT/ML Pen 30 UNIT SC (22:56)
[2024-05-03] MEDS: Piperacil/Tazobactam 3.375 GM in 0.9% Normal Saline (50mL MB+) 50 ML IV (22:56)
[2024-05-03] MEDS: Insulin Lispro 100 UNIT/ML INSULN.PEN SC (23:04)
[2024-05-03 23:40] LABS: Bedside Glucose 228 mg/dL (74-106)
[2024-05-04] VITALS (8 sets, daily range): BP systolic 106–114; BP diastolic 55–69; PULSE 83–90; RESP 14–18; TEMP 36.2–36.8; O2SAT 96–98
[2024-05-04] MEDS: Insulin Lispro 100 UNIT/ML INSULN.PEN SC ×5 (02:54→22:20)
[2024-05-04 03:15] LABS: Bedside Glucose 262 mg/dL (74-106)
[2024-05-04] MEDS: Piperacil/Tazobactam 3.375 GM in 0.9% Normal Saline (50mL MB+) 50 ML IV ×3 (05:55→22:30)
[2024-05-04 05:57] LABS: Absolute Lymphocyte Count 1.18 X10^3/uL (0.83-4.51); Absolute Neutrophil Count 3.9 X10^3/uL (2.0-7.7); Basophil# 0.03 X10^3/uL; Basophil% 0.5 % (0-1); Eosinophil# 0.21 X10^3/uL; Eosinophils% 3.3 % (0-5); Hematocrit 34.3 % (40-54); Hemoglobin 11.5 g/dL (13.0-16.5); Lymphocyte # 1.18 X10^3/ul (0.83-4.51); Lymphocyte % 18.7 % (19-41); Mean Corp Hgb Conc 33.5 g/dL (32-36); Mean Corpuscular Hgb 28.3 pg (27.0-32.0); Mean Corpuscular Volume 84.3 fL (80-94); Mean Platelet Vol. 10.1 fl (6.2-12.0); Monocyte% 14.3 % (0-10); NRBC Flagged by Analyzer 0 % (0-5); Neutrophil # 3.92 X10^3/uL (2.7-7.7); Neutrophil % 62.1 % (47-70); Platelet Count 200 K/mm3 (150-450); RBC Distribution Width CV 14.7 % (11.6-14.6); RBC Distribution Width SD 44.9 fl (35.1-43.9); Red Blood Count 4.07 M/mm3 (4.6-6.2); White Blood Count 6.3 K/mm3 (4.4-11.0)
[2024-05-04 06:06] LABS: International Normalized Ratio 1.5; Prothrombin Time (Protime)PT. 18.4 SECONDS (11.7-14.9)
[2024-05-04 07:01] LABS: Bedside Glucose 240 mg/dL (74-106)
[2024-05-04 07:02] LABS: ALB/GLOB Ratio 0.5 RATIO (0.9-2.4); AST(SGOT) 16 U/L (15-37); Alanine Aminotransfer ALT/SGPT 14 U/L (16-61); Albumin, Serum 2.2 g/dL (3.2-5.0); Alkaline Phosphatase 91 U/L (45-117); Anion Gap 10 (5-15); BUN 60 mg/dL (7-18); BUN/Creat Ratio 26.4 RATIO (10-20); Bilirubin, Direct 0.46 mg/dL (0.00-0.30); Calcium,Total 8.6 mg/dL (8.5-10.1); Chloride 99 mmol/L (98-107); Creatinine, Serum 2.27 mg/dL (0.70-1.30); EST Glomerular Filtration Rate 31 mL/min (>60); Est Glom Filt Rate - Afr Amer 38 mL/min (>60); Estimated Creatinine Clearance 43.82 ml/min; Globulin 4.4 g/dL (2.2-4.2); Glucose 263 mg/dL (74-106); Magnesium 2.6 mg/dL (1.6-2.6); Phosphorus 3.4 mg/dL (2.5-4.9); Potassium 3.8 mmol/L (3.5-5.1); Protein, Total 6.6 g/dL (6.4-8.2); Sodium Level 130 mmol/L (136-145); Thyroid Stim Hormone (TSH) 1.37 uIU/mL (0.358-3.74)
[2024-05-04] MEDS: Enoxaparin 40 MG/0.4 ML Syringe SC (08:04)
[2024-05-04] MEDS: DULoxetine Hcl 30 MG Capsule PO (08:04)
[2024-05-04] MEDS: Pravastatin 40 MG Tablet PO (08:04)
[2024-05-04] MEDS: Spironolactone 25 MG Tablet PO (08:05)
[2024-05-04] MEDS: Furosemide 40 MG Tablet PO (10:14)
--- NOTE | 2024-05-04 10:29 | WOUNDNOTE ---
wound photo: right lower leg
--- NOTE | 2024-05-04 10:29 | WOUNDNOTE ---
wound photo: right posterior lower leg
--- NOTE | 2024-05-04 10:30 | WOUNDNOTE ---
wound photo: left lower leg
--- NOTE | 2024-05-04 10:31 | WOUNDNOTE ---
wound photo: left posterior lower leg
[2024-05-04 10:38] LABS: Bedside Glucose 314 mg/dL (74-106)
--- NOTE | 2024-05-04 11:40 | CASEMGMT ---
RN?CM?GLUED WOOD TESTER?CM?to room to meet with patient for initial transition planning/care coordination?assessment.?RN?CM?introduced self and role at [facility].? Pt voices understanding and consents to?assessment?at this time.? Pt resting in bed in no distress at this time.? Sister, Billie, @ bedside and pt agreeable to her being present during assessment. Pt is A/O at this time and able to answer questions, but was slow to respond/took a long time to re-call most information. Sister did provide some information as well. Care providers, pharmacy, and demographics verified/updated at this time. PCP: [facility] PCP, Dr Rothman or Dr Villarreal. Sister states [facility] had set up financial aide to assist w/paying for office visits. [facility] information provided. Specialists: Pt was seeing a [facility] surgeon after having neck surgery last year, but states since insurance had changed, he no longer sees him. Preferred Pharmacy: Pt goes to [facility] in [place]. Pt agreeable to getting medications @ [facility] Retail pharmacy @ [place]. Follow for cost of meds @ [place] and possible need of using [facility] pharmacy vilma program. Insurance: No insurance. Pt states he used to have [employer], but when his got a raise he no longer qualified. He states he then had insurance through [employer], but that just recently ended. He states he Just got a letter the other day notifying him that insurance was ending, but per sister, [facility] registration stated his insurance ended @ end of January. Prescription Benefit:?None. Follow for cost of meds @ [place] and possible need of using [facility] pharmacy vilma program. LNOK: , Jarrod. Sister, Billie. Living Arrangements and DME: Lives w/ in one-story home w/4-5 steps to enter through front door. Pt states there is a ramp @ the deck entrance, but states, It's not as long as it should be. He states he is still able to walk up/down the ramp. Pt states he is mostly independent bathing/dressing himself, but states, I really need a walk-in tub. He reports having difficulty stepping over side of tub to shower. He stands to shower and does not have a shower chair or tub bench. Pt and sister made aware of extended tub benches and shower chairs and discussed several areas these could be purchased. They were also given [employer] on-line store information. Pt states he manages his own medications, but does not check is BS's as often as he should. He states he used to check his BS's daily, but has slacked off a little bit and only checks them about 4 days/week. He states he used to use a CGM but states they kept coming off easily and so he stopped using them and now uses glucometer. He states he has enough supplies for now for the glucometer and has 2 or 3 insulin pens still. 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 He is home alone when she is at work. Pt states he usually gets the groceries, but if there's any cooking involved, my usually does that. He just started helping w/doing the laundry, otherwise his does laundry. Pt also has a cane and CPAP. No home O2. He has a WW in his garage that was his mother's (she has ) that he could use once he returns home. Wound care/dressing changes/leg wraps: Pt states when he has had to wrap his legs and do wound care in the past that he and his together would manage that and feels they could do that again once he returns home. Transportation:?Pt and both drive. HHC/SNF: No hx of either. Pt states he does fall on occasion. He has had neck and back surgery and sister states since his back surgery that his knees buckle at times causing him to fall. He states, if therapy recommends SNF, he would be agreeable to going if he qualifies for [facility]. CCN: Discussed CCN and questions answered. CCN rac card provided. PLAN:??TBD by course of treatment, progress w/therapy, insurance, cost. Possible SNF. If pt does discharge home, possible CCN referral. SADIA, Nessa, and BELT TENDER Ariana ZARCO, made aware of above. Kirby BSN?RN?CAROLEE
--- NOTE | 2024-05-04 13:05 | PN.HOSP_ITS ---
Reason for Visit Reason for Visit: Diagnoses Fracture of one rib, left side, initial encounter for closed fracture (05/03/24) Subjective Subjective Patient was seen and examined today, he was admitted yesterday for lower leg cellulitis bilaterally. Patient has a history of stasis dermatitis to his legs and according to wound nursing, patient sits in a recliner with his legs down while sleeping. Objective Data Objective Data Vital Signs: Vital Signs Temp Pulse Resp BP Pulse Ox O2 Del Method O2 Flow Rate 97.1 F L 85 14 114/65 98 Nasal Cannula 2 05/04/24 08:55 05/04/24 08:55 05/04/24 08:55 05/04/24 10:00 05/04/24 08:55 05/04/24 08:55 05/04/24 08:55 Oxygen Flow Rate (L/min) 2 Oxygen Delivery Method Nasal Cannula Weight: 114.3 kg Body Mass Index (BMI) 36.7 Intake & Output: Intake and Output for Last 24 Hours 05/02/24 05/03/24 05/04/24 23:59 23:59 23:59 Intake Total 1756.55 / 1756.55 600 / 600 Output Total 1100 / 1100 Balance 1756.55 / 1756.55 -500 / -500 Lab / Micro Data 05/04/24 05:05 05/04/24 05:05 Labs: Laboratory Results - last 24 hr 05/03/24 13:12: WBC 8.2, RBC 4.40 L, Hgb 12.8 L, Hct 36.7 L, MCV 83.4, MCH 29.1, MCHC 34.9, RDW Std Deviation 44.6 H, RDW Coeff of Henri 14.6, Plt Count 258, MPV 9.9, Immature Gran % (Auto) 0.900, Neut % (Auto) 66.8, Lymph % (Auto) 18.1 L, M gurjit % (Auto) 11.0 H, Eos % (Auto) 2.8, Baso % (Auto) 0.4, Absolute Neuts (auto) 5.5, Absolute Lymphs (auto) 1.48, Nucleated RBC % 0, PT 17.9 H, INR 1.5, APTT 35.0, Sodium 121 L, Potassium 4.4, Chloride 90 L, Carbon Dioxide 24.0, Anion Gap 7, BUN 69 H, Creatinine 3.40 H, Estim Creat Clear Calc 29.50, Est GFR (MDRD) Af Amer 24 L, Est GFR (MDRD) Non-Af 20 L, BUN/Creatinine Ratio 20.3 H, Glucose 554 H*, Lactic Acid 1.7, Calcium 8.9, Magnesium 2.6, Total Bilirubin 0.70, Direct Bilirubin 0.26, AST 19, ALT 17, Alkaline Phosphatase 121 H, Troponin I High Sens 9, B-Natriuretic Peptide 24.4, Total Protein 7.3, Albumin 2.6 L, Globulin 4.7 H, Lipase > 250 H 05/03/24 13:30: Urine Color Yellow, Urine Clarity Clear, Urine pH 5.0, Ur Specific Schaller 1.020, Urine Protein 30 H, Urine Glucose (UA) 1000 H, Urine Ketones Negative, Urine Occult Blood 50 H, Urine Nitrite Negative, Urine Bilirubin Negative, Urine Urobilinogen Normal, Ur Leukocyte Esterase 25 H, Urine RBC 0-5 SEEN, Urine WBC 0-5 SEEN, Ur Squamous Epith Cells 0-5 SEEN, Amorphous Sediment 1+, Urine Bacteria 1+, Urine Mucus 0 SEEN 05/03/24 17:28: Hemoglobin A1c 12.3 H, B-Natriuretic Peptide 45.0 05/03/24 22:52: POC Glucose 228 H 05/04/24 02:52: POC Glucose 262 H 05/04/24 05:05: WBC 6.3, RBC 4.07 L, Hgb 11.5 L, Hct 34.3 L, MCV 84.3, MCH 28.3, MCHC 33.5, RDW Std Deviation 44.9 H, RDW Coeff of Henri 14.7 H, Plt Count 200, MPV 10.1, Immature Gran % (Auto) 1.100 H, Neut % (Auto) 62.1, Lymph % (Auto) 18.7 L, [facility] % (Auto) 14.3 H, Eos % (Auto) 3.3, Baso % (Auto) 0.5, Absolute Neuts (auto) 3.9, Absolute Lymphs (auto) 1.18, Nucleated RBC % 0, PT 18.4 H, INR 1.5, Sodium 130 L, Potassium 3.8, Chloride 99, Carbon Dioxide 21.0, Anion Gap 10, BUN 60 H, Creatinine 2.27 H, Estim Creat Clear Calc 43.82, Est GFR (MDRD) Af Amer 38 L, E st GFR (MDRD) Non-Af 31 L, BUN/Creatinine Ratio 26.4 H, Glucose 263 H, Calcium 8.6, Phosphorus 3.4, Magnesium 2.6, Total Bilirubin 1.20 H, Direct Bilirubin 0.46 H, AST 16, ALT 14 L, Alkaline Phosphatase 91, Total Protein 6.6, Albumin 2.2 L, Globulin 4.4 H, Albumin/Globulin Ratio 0.5 L, TSH 1.37 05/04/24 06:41: POC Glucose 240 H 05/04/24 10:17: POC Glucose 314 H Micro: Microbiology 05/03/24 13:15 Wound - Leg, Right Gram Stain - Final 05/03/24 13:15 Mucosa - Nose SARS-CoV-2, Influenza & RSV (PCR) - Final Radiography Diagnostic Testing: Radiology Impression Brain CT 05/03/24 12:59 IMPRESSION: Chronic involutional changes of the brain. Electronically Signed: Kain Pastrana MD at 15:07 EDT , Chest/Abdomen/Pelvis CT 05/03/24 13:03 IMPRESSION: Mild increased markings at the lung bases suggestive of scarring slightly more prominent on the left side. Small bilateral inguinal hernias 50% loss of height of the L5 vertebra. Sigmoid diverticulosis. Electronically Signed: Kain Pastrana MD at 15:14 EDT , Physical Exam Const alert, oriented x3 and no apparent distress General Appearance: cooperative, well kempt and well developed Orientation / Consciousness: awake, oriented to person, oriented to place and oriented to time HEENT normocephalic, head/scalp atraumatic and moist oral mucous membranes Eyes PERRL, EOMs intact bilaterally and conjunctivae normal Neck supple, no JVD, thyroid normal and no carotid bruits General: trachea midline Resp normal respiratory effort and clear to auscultation bilaterally Auscultation: Negative for rales, rhonchi or wheezes Cardio regular rate, regular rhythm, no murmurs, no rub and no gallops GI normal to inspection, nondistended, normoactive bowel sounds, soft to palpation, non-tender and non-distended Skin Skin Narrative: Multiple skin breakdown areas are noted over both lower legs, there is stasis changes to the skin over the lower legs Neuro oriented x3, CN's II-XII intact bilaterally, moves all extremities, no focal motor deficits and no sensory deficits noted Sensorium / Orientation: awake and alert Speech: speech normal Psych affect normal Assessment & Plan Assessment/Plan (1) Hyperosmolar hyperglycemic state (HHS): PLAN: Plan 1. Hyperosmolar hyperglycemic state-blood sugars have improved, fasting blood sugar today was 263, continue current coverage with sliding scale insulin and home meds #2 cellulitis of the lower legs secondary to stasis skin ulcerations-culture is growing gram-negative rods and gram-positive cocci, await culture results, patient is on Zosyn and vancomycin #3 uncontrolled type 2 diabetes-complicates care, management, recovery, and prognosis #4 elevated creatinine-etiology unclear, creatinine is improved today, will recheck labs tomorrow, I am not sure what is the patient's baseline creatinine #5 elevated lipase-patient has no complaints of any abdominal pain, I do not believe he has pancreatitis Total clinical time spent by myself addressing the patient's medical issues, reviewing all of his data, and collaborating with patient's care team: 50 minutes Charges/Coding Visit Charges Inpatient E&M: 46095 [facility] L3
--- NOTE | 2024-05-04 13:48 | CASEMGMT ---
Social Work Breanna did follow up w/pt and , they do not qualify for Medicaid. SW spoke w/pt in room, provided resources including [employer] information, [employer], [employer], [facility] assist and prescription assist programs. SW remains available should pt have further discharge/social service needs. EMMANUEL Ervin
[2024-05-04 15:52] LABS: Bedside Glucose 390 mg/dL (74-106)
[2024-05-04 21:48] LABS: Bedside Glucose 402 mg/dL (74-106)
[2024-05-04] MEDS: Insulin Glargine-YFGN 100 UNIT/ML Pen 30 UNIT SC (22:20)
[2024-05-04] MEDS: Vancomycin HCl 1,500 MG in 0.9% Normal Saline (500mL Bag) 500 ML 250 MG IV (22:32)
[2024-05-05 03:23] VITALS: BP 109/68; PULSE 90; RESP 18; TEMP 36.7; O2SAT 95
[2024-05-05] MEDS: Insulin Lispro 100 UNIT/ML INSULN.PEN SC ×5 (03:30→21:36)
[2024-05-05 04:05] LABS: Bedside Glucose 316 mg/dL (74-106)
[2024-05-05] MEDS: Piperacil/Tazobactam 3.375 GM in 0.9% Normal Saline (50mL MB+) 50 ML IV ×3 (05:09→23:16)
[2024-05-05 06:50] LABS: Bedside Glucose 232 mg/dL (74-106)
[2024-05-05 07:48] VITALS: O2SAT 92
[2024-05-05 07:54] LABS: Absolute Lymphocyte Count 1.11 X10^3/uL (0.83-4.51); Absolute Neutrophil Count 2.3 X10^3/uL (2.0-7.7); Basophil# 0.03 X10^3/uL; Basophil% 0.7 % (0-1); Eosinophil# 0.22 X10^3/uL; Eosinophils% 5.1 % (0-5); Hematocrit 31.9 % (40-54); Lymphocyte # 1.11 X10^3/ul (0.83-4.51); Lymphocyte % 25.9 % (19-41); Mean Corp Hgb Conc 34.5 g/dL (32-36); Mean Corpuscular Hgb 29.1 pg (27.0-32.0); Mean Corpuscular Volume 84.4 fL (80-94); Mean Platelet Vol. 9.4 fl (6.2-12.0); Monocyte# 0.55 X10^3/uL; Monocyte% 12.9 % (0-10); NRBC Flagged by Analyzer 0 % (0-5); Neutrophil # 2.32 X10^3/uL (2.7-7.7); Neutrophil % 54.2 % (47-70); Platelet Count 155 K/mm3 (150-450); RBC Distribution Width CV 14.6 % (11.6-14.6); RBC Distribution Width SD 44.9 fl (35.1-43.9); Red Blood Count 3.78 M/mm3 (4.6-6.2); White Blood Count 4.3 K/mm3 (4.4-11.0)
[2024-05-05 08:29] LABS: Anion Gap 10 (5-15); BUN 46 mg/dL (7-18); BUN/Creat Ratio 28.8 RATIO (10-20); Calcium,Total 8.6 mg/dL (8.5-10.1); Chloride 101 mmol/L (98-107); EST Glomerular Filtration Rate 47 mL/min (>60); Est Glom Filt Rate - Afr Amer 57 mL/min (>60); Estimated Creatinine Clearance 62.17 ml/min; Glucose 224 mg/dL (74-106); Potassium 2.9 mmol/L (3.5-5.1); Sodium Level 134 mmol/L (136-145)
[2024-05-05 09:25] VITALS: BP 108/68; PULSE 86; RESP 16; TEMP 36.6; O2SAT 94
[2024-05-05] MEDS: Furosemide 40 MG Tablet PO (09:41)
[2024-05-05] MEDS: DULoxetine Hcl 30 MG Capsule PO (09:41)
[2024-05-05] MEDS: Enoxaparin 40 MG/0.4 ML Syringe SC (09:41)
[2024-05-05] MEDS: Spironolactone 25 MG Tablet PO (09:41)
[2024-05-05] MEDS: Pravastatin 40 MG Tablet PO (09:41)
[2024-05-05] MEDS: Potassium Chloride Oral Tablet 20 MEQ 60 MEQ PO (11:19)
[2024-05-05 11:53] LABS: Bedside Glucose 381 mg/dL (74-106)
--- NOTE | 2024-05-05 12:29 | PCM.PN.HOSP ---
Reason for Visit Reason for Visit: Diagnoses Type 2 diabetes mellitus with hyperosmolarity without nonketotic hyperglycemic-hyperosmolar coma (N[facility]HC) (05/03/24) Fracture of one rib, left side, initial encounter for closed fracture (05/03/24) Subjective Subjective Patient was seen and examined today, his potassium was low today 2.9 and his creatinine was improved at 1.6 today. Patient has no complaints to this examiner. Wound cultures grew out gram-negative lactose spa director/finance, gram-negative king, and staff aureus-sensitivities and identification is pending. Objective Data Objective Data Vital Signs: Vital Signs Temp Pulse Resp BP Pulse Ox O2 Del Method O2 Flow Rate 97.9 F 86 16 108/68 94 Room Air 2 05/05/24 09:25 05/05/24 09:25 05/05/24 09:25 05/05/24 09:25 05/05/24 09:25 05/05/24 09:53 05/04/24 21:35 Oxygen Flow Rate (L/min) 2 Oxygen Delivery Method Room Air Weight: 114.3 kg Body Mass Index (BMI) 36.7 Intake & Output: Intake and Output for Last 24 Hours 05/03/24 05/04/24 05/05/24 23:59 23:59 23:59 Intake Total 1756.55 / 1756.55 1200 / 1200 1230 / 1230 Output Total 1800 / 1800 1250 / 1250 Balance 1756.55 / 1756.55 -600 / -600 -20 / -20 Lab / Micro Data 05/05/24 07:39 05/05/24 07:39 Labs: Laboratory Results - last 24 hr 05/04/24 15:30: POC Glucose 390 H 05/04/24 21:28: POC Glucose 402 H 05/05/24 03:29: POC Glucose 316 H 05/05/24 06:31: POC Glucose 232 H 05/05/24 07:39: WBC 4.3 L, RBC 3.78 L, Hgb 11.0 L, Hct 31.9 L, MCV 84.4, MCH 29.1, MCHC 34.5, RDW Std Deviation 44.9 H, RDW Coeff of Henri 14.6, Plt Count 155, MPV 9.4, Immature Gran % (Auto) 1.200 H, Neut % (Auto) 54.2, Lymph % (Auto) 25.9, [place] % (Auto) 12.9 H, Eos % (Auto) 5.1 H, Baso % (Auto) 0.7, Absolute Neuts (auto) 2.3, Absolute Lymphs (auto) 1.11, Nucleated RBC % 0, Sodium 134 L, Potassium 2.9 L, Chloride 101, Carbon Dioxide 23.0, Anion Gap 10, BUN 46 H, Creatinine 1.60 H, Estim Creat Clear Calc 62.17, Est GFR (MDRD) Af Amer 57 L, Est GFR (MDRD) Non-Af 47 L, BUN/Creatinine Ratio 28.8 H, Glucose 224 H, Calcium 8.6 05/05/24 11:19: POC Glucose 381 H Micro: Microbiology 05/03/24 13:15 Wound - Leg, Right Gram Stain - Final 05/03/24 13:15 Wound - Leg, Right Wound Culture - Preliminary GNR lactose spa director/finance Gram negative king Staphylococcus aureus 05/03/24 13:15 Mucosa - Nose SARS-CoV-2, Influenza & RSV (PCR) - Final Radiography Diagnostic Testing: Radiology Impression Echocardiogram 05/03/24 17:14 Interpretation Summary Normal LV size. Left ventricular systolic function is normal. The estimated ejection fraction is 60 %. Contrast injection was performed. Ordering Physician: Stephen Varela Referring Physician: BLAIRE LARA Performed By: Dipika Leija RCS Venous Doppler Study 05/03/24 18:11 Interpretation Summary Deep veins of the bilateral lower extremities are patent and compressible segmentally. There is no evidence of bilateral lower extremity deep vein thrombosis. The bilateral great saphenous veins appear patent and compressible segmentally. Limited study due to dressings Ordering Physician: Stephen Varela Referring Physician: Jayro Lara Performed By: Teresa Villanueva, [place], RVT Physical Exam Narrative alert, oriented x3 and no apparent distress General Appearance: cooperative, well kempt and well developed Orientation / Consciousness: awake, oriented to person, oriented to place and oriented to time HEENT normocephalic, head/scalp atraumatic and moist oral mucous membranes Eyes PERRL, EOMs intact bilaterally and conjunctivae normal Neck supple, no JVD, thyroid normal and no carotid bruits General: trachea midline Resp normal respiratory effort and clear to auscultation bilaterally Auscultation: Negative for rales, rhonchi or wheezes Cardio regular rate, regular rhythm, no murmurs, no rub and no gallops GI normal to inspection, nondistended, normoactive bowel sounds, soft to palpation, non-tender and non-distended Skin Skin Narrative: Multiple skin breakdown areas are noted over both lower legs, there is stasis changes to the skin over the lower legs Neuro oriented x3, CN's II-XII intact bilaterally, moves all extremities, no focal motor deficits and no sensory deficits noted Sensorium / Orientation: awake and alert Speech: speech normal Psych affect normal Assessment & Plan Assessment/Plan (1) Hyperosmolar hyperglycemic state (HHS): PLAN: Plan 1. Hyperosmolar hyperglycemic state-blood sugars are still elevated, I will adjust his basal insulin dosage and place the patient on fast acting insulin with each meal #2 cellulitis of the lower legs secondary to stasis skin ulcerations-culture is growing gram-negative rods and gram-positive cocci, await culture results, patient is on Zosyn and vancomycin #3 uncontrolled type 2 diabetes-complicates care, management, recovery, and prognosis #4 elevated creatinine-etiology unclear, creatinine is improved today, will recheck labs tomorrow, I am not sure what is the patient's baseline creatinine #5 elevated lipase-patient has no complaints of any abdominal pain, I do not believe he has pancreatitis Total clinical time spent by myself addressing the patient's medical issues, reviewing all of his data, and collaborating with patient's care team: 35 minutes Charges/Coding Visit Charges Inpatient E&M: 06916 Subs Hosp L2
[2024-05-05] MEDS: oxyCODONE 5 MG Tablet PO (13:34)
[2024-05-05] MEDS: Acetaminophen 325 MG Tablet 650 MG PO (13:34)
[2024-05-05 15:25] VITALS: BP 101/60; PULSE 73; RESP 16; TEMP 36.9; O2SAT 95
[2024-05-05 16:42] LABS: Bedside Glucose > 500 mg/dL (74-106)
[2024-05-05] MEDS: Insulin Lispro 100 UNIT/ML INSULN.PEN 20 UNIT SC (16:44)
[2024-05-05] MEDS: Insulin Lispro 100 UNIT/ML INSULN.PEN 15 UNIT SC (16:45)
[2024-05-05 17:36] LABS: Bedside Glucose 449 mg/dL (74-106)
[2024-05-05 20:07] LABS: Vancomycin, Trough Level 17.7 ug/mL (5.0-15.0)
[2024-05-05] MEDS: Vancomycin HCl 1,500 MG in 0.9% Normal Saline (500mL Bag) 500 ML 250 MG IV (20:37)
[2024-05-05] MEDS: 0.9% Saline Lock 10 ML Syringe IV (20:38)
[2024-05-05 21:30] VITALS: BP 106/58; PULSE 87; RESP 16; TEMP 36.3; O2SAT 100
[2024-05-05] MEDS: Insulin Glargine-YFGN 100 UNIT/ML Pen 35 UNIT SC (21:36)
[2024-05-05 21:58] LABS: Bedside Glucose 184 mg/dL (74-106)
--- NOTE | 2024-05-06 02:39 | PCM.RX.CS ---
Consult Antibiotic Management Pharmacy has been consulted to manage selected antibiotic: Vancomycin Type of Intervention Type of Consult: Follow-up Labs Labs: Sodium 134 mmol/L (136-145) L 05/05/24 07:39 Potassium 2.9 mmol/L (3.5-5.1) L 05/05/24 07:39 Chloride 101 mmol/L (98-107) 05/05/24 07:39 Carbon Dioxide 23.0 mmol/L (21.0-32.0) 05/05/24 07:39 Anion Gap 10 (5-15) 05/05/24 07:39 BUN 46 mg/dL (7-18) H 05/05/24 07:39 Creatinine 1.60 mg/dL (0.70-1.30) H 05/05/24 07:39 Est GFR (MDRD) Af Amer 57 mL/min (>60) L 05/05/24 07:39 Est GFR (MDRD) Non-Af 47 mL/min (>60) L 05/05/24 07:39 BUN/Creatinine Ratio 28.8 RATIO (10-20) H 05/05/24 07:39 Glucose 224 mg/dL (74-106) H 05/05/24 07:39 Vancomycin Trough 17.7 ug/mL (5.0-15.0) H 05/05/24 19:29 Microbiology Microbiology: Microbiology 05/03/24 13:35 Blood Culture (Wb) - Anticubital Right Blood Culture - Preliminary No growth in 48 hours. 05/03/24 13:12 Blood Culture (Wb) - Anticubital Left Blood Culture - Preliminary No growth in 48 hours. 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 TROUGH 17.7 @ 21 HOURS. RECHECK TROUGH WITH NEXT DOSE Follow-Up Labs Follow-Up Labs: Trough: Vancomycin Date/Time Labs Ordered Labs to be done on [date and time ordered]: 05/06 @ 1930
[2024-05-06 03:17] VITALS: BP 102/63; PULSE 89; RESP 16; TEMP 36.3; O2SAT 97
[2024-05-06] MEDS: Insulin Lispro 100 UNIT/ML INSULN.PEN SC ×4 (03:19→21:45)
[2024-05-06 03:51] LABS: Bedside Glucose 154 mg/dL (74-106)
[2024-05-06] MEDS: Piperacil/Tazobactam 3.375 GM in 0.9% Normal Saline (50mL MB+) 50 ML IV ×2 (06:03→14:28)
[2024-05-06 06:33] LABS: Anion Gap 8 (5-15); BUN 40 mg/dL (7-18); BUN/Creat Ratio 31.7 RATIO (10-20); Calcium,Total 8.5 mg/dL (8.5-10.1); Chloride 102 mmol/L (98-107); Creatinine, Serum 1.26 mg/dL (0.70-1.30); EST Glomerular Filtration Rate 62 mL/min (>60); Est Glom Filt Rate - Afr Amer 75 mL/min (>60); Estimated Creatinine Clearance 78.94 ml/min; Glucose 167 mg/dL (74-106); Potassium 3.1 mmol/L (3.5-5.1); Sodium Level 134 mmol/L (136-145)
[2024-05-06 07:09] VITALS: O2SAT 97
[2024-05-06 08:04] LABS: Bedside Glucose 142 mg/dL (74-106)
[2024-05-06] MEDS: Insulin Lispro 100 UNIT/ML INSULN.PEN 15 UNIT SC ×3 (08:06→16:47)
[2024-05-06] MEDS: Insulin Glargine-YFGN 100 UNIT/ML Pen 35 UNIT SC ×2 (08:06→21:46)
[2024-05-06 08:55] VITALS: BP 106/63; PULSE 99; RESP 18; TEMP 36.6; O2SAT 99
[2024-05-06] MEDS: Enoxaparin 40 MG/0.4 ML Syringe SC (08:56)
[2024-05-06] MEDS: Lisinopril 20 MG Tablet PO (08:57)
[2024-05-06] MEDS: Furosemide 40 MG Tablet PO (08:57)
[2024-05-06] MEDS: DULoxetine Hcl 30 MG Capsule PO (08:57)
[2024-05-06] MEDS: Pravastatin 40 MG Tablet PO (08:57)
[2024-05-06] MEDS: Spironolactone 25 MG Tablet PO (08:57)
[2024-05-06] MEDS: Potassium Chloride Oral Tablet 20 MEQ 40 MEQ PO (12:10)
[2024-05-06 12:31] LABS: Bedside Glucose 285 mg/dL (74-106)
[2024-05-06] MEDS: 0.9% Saline Lock 10 ML Syringe IV ×2 (14:28→21:48)
--- NOTE | 2024-05-06 15:03 | PN.HOSP_ITS ---
Reason for Visit Reason for Visit: Diagnoses Type 2 diabetes mellitus with hyperosmolarity without nonketotic hyperglycemic- hyperosmolar coma (N[facility]HC) (05/03/24) Fracture of one rib, left side, initial encounter for closed fracture (05/03/24) Subjective Subjective Patient was seen and examined today, his renal functions have improved, skin culture results were positive for multiple bacteria including Citrobacter Serratia and methicillin sensitive Staph aureus, there is also possible Pseudomonas, I have made the decision to stop his vancomycin and stop his Zosyn. I have elected to place the patient on amoxicillin and Levaquin. Objective Data Objective Data Vital Signs: Vital Signs Temp Pulse Resp BP Pulse Ox O2 Del Method O2 Flow Rate 97.9 F 99 18 106/63 99 Room Air 2 05/06/24 08:55 05/06/24 08:55 05/06/24 08:55 05/06/24 08:55 05/06/24 08:55 05/06/24 14:40 05/04/24 21:35 Oxygen Flow Rate (L/min) 2 Oxygen Delivery Method Room Air Weight: 114.3 kg Body Mass Index (BMI) 36.7 Intake & Output: Intake and Output for Last 24 Hours 05/04/24 05/05/24 05/06/24 23:59 23:59 23:59 Intake Total 1200 / 1200 2060 / 2060 750 / 750 Output Total 1800 / 1800 1950 / 1950 1350 / 1350 Balance -600 / -600 110 / 110 -600 / -600 Lab / Micro Data 05/05/24 07:39 05/06/24 05:57 Labs: Laboratory Results - last 24 hr 05/05/24 16:23: POC Glucose > 500 H* 05/05/24 17:18: POC Glucose 449 H 05/05/24 19:29: Vancomycin Trough 17.7 H 05/05/24 21:33: POC Glucose 184 H 05/06/24 03:15: POC Glucose 154 H 05/06/24 05:57: Sodium 134 L, Potassium 3.1 L, Chloride 102, Carbon Dioxide 24.0, Anion Gap 8, BUN 40 H, Creatinine 1.26, Estim Creat Clear Calc 78.94, Est GFR (MDRD) Af Amer 75, Est GFR (MDRD) Non-Af 62, BUN/Creatinine Ratio 31.7 H, G lucose 167 H, Calcium 8.5 05/06/24 07:47: POC Glucose 142 H 05/06/24 12:08: POC Glucose 285 H Micro: Microbiology 05/03/24 13:15 Wound - Leg, Right Gram Stain - Final 05/03/24 13:15 Wound - Leg, Right Wound Culture - Preliminary Citrobacter braakii Serratia liquefaciens group Staphylococcus aureus GNR Poss Pseudomonas sp 05/03/24 13:35 Blood Culture (Wb) - Anticubital Right Blood Culture - Preliminary No growth in 48 hours. 05/03/24 13:12 Blood Culture (Wb) - Anticubital Left Blood Culture - Preliminary No growth in 48 hours. 05/03/24 13:15 Mucosa - Nose SARS-CoV-2, Influenza & RSV (PCR) - Final Physical Exam Narrative alert, oriented x3 and no apparent distress General Appearance: cooperative, well kempt and well developed Orientation / Consciousness: awake, oriented to person, oriented to place and oriented to time HEENT normocephalic, head/scalp atraumatic and moist oral mucous membranes Eyes PERRL, EOMs intact bilaterally and conjunctivae normal Neck supple, no JVD, thyroid normal and no carotid bruits General: trachea midline Resp normal respiratory effort and clear to auscultation bilaterally Auscultation: Negative for rales, rhonchi or wheezes Cardio regular rate, regular rhythm, no murmurs, no rub and no gallops GI normal to inspection, nondistended, normoactive bowel sounds, soft to palpation, non-tender and non-distended Skin Skin Narrative: Patient's legs are wrapped with surgical dressing, this was not removed to inspect the area Neuro oriented x3, CN's II-XII intact bilaterally, moves all extremities, no focal motor deficits and no sensory deficits noted Sensorium / Orientation: awake and alert Speech: speech normal Psych affect normal Assessment & Plan Assessment/Plan (1) Bilateral lower leg cellulitis: PLAN: Plan 1. Hyperosmolar hyperglycemic state-blood sugars are under control, I adjusted the patient's insulin yesterday #2 cellulitis of the lower legs secondary to stasis skin ulcerations-secondary to methicillin sensitive Staph aureus, Serratia, and Citrobacter with possible Pseudomonas #3 uncontrolled type 2 diabetes-complicates care, management, recovery, and prognosis #4 elevated creatinine-this has resolved at this time #5 elevated lipase-patient has no complaints of any abdominal pain, I do not believe he has pancreatitis Total clinical time spent by myself addressing the patient's medical issues, reviewing all of his data, and collaborating with patient's care team: 35 minutes Charges/Coding Visit Charges Inpatient E&M: 98485 Subs Hosp L2
[2024-05-06 15:18] VITALS: BP 97/53; PULSE 78; RESP 18; TEMP 36.6; O2SAT 97
[2024-05-06] MEDS: levoFLOXacin 500 MG Tablet PO (16:06)
[2024-05-06 17:11] LABS: Bedside Glucose 266 mg/dL (74-106)
[2024-05-06] MEDS: Acetaminophen 325 MG Tablet 650 MG PO (18:40)
[2024-05-06 21:43] VITALS: BP 106/56; PULSE 96; RESP 18; TEMP 36.9; O2SAT 98
[2024-05-06] MEDS: Menthol/Lanolin/Calamine/Znox 113 GM Tube 1 APPLIC TOPICAL (21:44)
[2024-05-06] MEDS: AMOXICILLIN 500 MG CAPSULE PO (21:45)
[2024-05-06 23:12] LABS: Bedside Glucose 196 mg/dL (74-106)
[2024-05-07] VITALS (10 sets, daily range): BP systolic 75–116; BP diastolic 46–59; PULSE 71–106; RESP 15–24; TEMP 36.5–36.9; O2SAT 96–100
[2024-05-07 03:53] LABS: Bedside Glucose 144 mg/dL (74-106)
[2024-05-07] MEDS: AMOXICILLIN 500 MG CAPSULE PO ×3 (05:14→22:03)
[2024-05-07] MEDS: levoFLOXacin 500 MG Tablet PO (05:14)
[2024-05-07 06:49] LABS: Anion Gap 10 (5-15); BUN 35 mg/dL (7-18); BUN/Creat Ratio 30.7 RATIO (10-20); Calcium,Total 8.6 mg/dL (8.5-10.1); Chloride 101 mmol/L (98-107); Creatinine, Serum 1.14 mg/dL (0.70-1.30); EST Glomerular Filtration Rate 69 mL/min (>60); Est Glom Filt Rate - Afr Amer 84 mL/min (>60); Estimated Creatinine Clearance 87.25 ml/min; Glucose 160 mg/dL (74-106); Potassium 3.3 mmol/L (3.5-5.1); Sodium Level 132 mmol/L (136-145)
[2024-05-07] MEDS: Insulin Lispro 100 UNIT/ML INSULN.PEN 15 UNIT SC ×3 (08:24→17:32)
[2024-05-07 08:25] LABS: Bedside Glucose 137 mg/dL (74-106)
--- NOTE | 2024-05-07 10:21 | WOUNDNOTE ---
wound photo: left lower leg
--- NOTE | 2024-05-07 10:21 | WOUNDNOTE ---
wound photo: left lower leg
--- NOTE | 2024-05-07 10:22 | WOUNDNOTE ---
wound photo: right lower leg
[2024-05-07] MEDS: 0.9% Normal Saline (500mL Bag) 500 ML 250 ML IV ×2 (10:50→14:55)
[2024-05-07] MEDS: Insulin Lispro 100 UNIT/ML INSULN.PEN SC (11:15)
[2024-05-07] MEDS: Potassium Chloride Oral Tablet 20 MEQ 40 MEQ PO (11:20)
[2024-05-07] MEDS: Insulin Glargine-YFGN 100 UNIT/ML Pen 35 UNIT SC ×2 (11:20→22:04)
[2024-05-07] MEDS: DULoxetine Hcl 30 MG Capsule PO (11:20)
[2024-05-07] MEDS: Pravastatin 40 MG Tablet PO (11:21)
[2024-05-07] MEDS: Enoxaparin 40 MG/0.4 ML Syringe SC (11:21)
[2024-05-07] MEDS: 0.9% Normal Saline (250mL Bag) 250 ML 999 ML IV (14:00)
--- NOTE | 2024-05-07 14:00 | CASEMGMT ---
LASHANDA ZARCO NOTE: Therapy notes reviewed. LASHANDA ZARCO to room to discuss discharge planning/needs w/pt. He states he feels safe to discharge home and states he feels he is getting around okay/ambulating. Wound care: Spoke w/Liseth, wound nurse. She states pt and his are aware of how to do wound care/dsg changes, as they will be the same @ discharge as what they have done in the past. Pt to be given wound care supplies that are in his room @ [facility] and will need to purchase further dressing supplies [id number]. LASHANDA ZARCO has been to his room today and he is aware of same. He states he does have some supplies remaining @ home and usually purchases supplies @ [facility], although he states he was not able to find the ABD pads there in the past. Made aware of other locations/drug stores/pharmacies they could be purchased from. He voices understanding. DM: Per Liseth, wound nurse, pt told him he had not taken his insulin for about a month d/t he ran out of same and could not afford to buy any. Pt told this RN CM on Tuesday that he had 3 insulin pens @ his home and has sufficient glucometer supplies as well. LASHANDA ZARCO spoke w/pt about this to clarify. Pt states he had ran out of insulin previously for about a month, but then he did purchase some shortly before I came in to the hospital. Pt could not recall how long it has been and does not know the name of the insulin pens, but he did reiterate to this RN CAROLEE that he has 3 insulin pens @ home--one he has started using and he states he has 2 full ones that he has not used yet. LASHANDA ZARCO placed call to pt's pharmacy, [facility]. Per pharmacy, pt purchased 3 Lantus Solstar pens April 03. Dr Smart aware of same. CCN: Discussed CCN w/pt and he is agreeable to referral. Order placed. Call placed to Damion @ [facility] and she was made aware of referral. She states they will try and have a nurse see pt this week. Pt made aware. PCP: Pt does not have insurance currently. Discussed need for f/u after discharge. Discussed [facility] and he and sister state would like an appt scheduled there, if possible. Call placed to [facility] and appt scheduled w/Dr Sanchez 05/18 @ 10:30 AM, which is the 1st available appt. This was addded in pt's discharge plan. Pt and sister made aware of appt date/time. Sister inquiring about education re: dietary intake and DM. Pt states he does not remember if a sales and marketing agent has been in to see him yet. LASHANDA ZARCO noted info/education on pt's stand beside bed from [facility], re: carbohydrates and DM. This was given to pt's sister to review. She was also made aware CCN can provide further education. She voices appreciation. Pt and sister deny having further discharge needs/concerns at this time. Kirby BUCK RN CM
--- NOTE | 2024-05-07 16:18 | CASEMGMT ---
Social Work Chart reviewed and unable to find any scanned advance directive documents on file. Met with patient who reports to have forms at home; okay with this keno writer/runner calling the to bring the forms in. Patient reports would accept new forms to look at though, in case wants to redo the forms in the future. Called the patient's Jarrod who reports patient does have advance directives but are in the patient's safe at home, so may not be able to bring in right away. Let know that if able to access forms, then to please bring the forms in. is reported to be the [facility]. At this time though, without forms on file the is the next of kin decision maker. -LEO Hood
[2024-05-07 16:44] LABS: Bedside Glucose 210 mg/dL (74-106)
[2024-05-07 16:44] LABS: Bedside Glucose 135 mg/dL (74-106)
[2024-05-07 16:44] LABS: Bedside Glucose 129 mg/dL (74-106)
--- NOTE | 2024-05-07 17:53 | PCM.DC ---
Discharge Instructions Diet Discharge Diet: 1800 Calorie Control Diet Activity Discharge Activity: Return to Normal Activity Weight Bearing Status: Full weight bearing Follow Up Care Test Results: Test results from this visit will be discussed in further detail at your follow-up appointment, if applicable. Discharge Plan Admission Admit Date/Time: 05/03/24 17:07 Primary Reason for Your Visit: Cellulitis of the legs, acute kidney injury Attending Provider: Sen Smart Primary Care Provider: Amandeep Rothman Consulting Providers: Stephen Varela Instructions Additional Instructions / Restrictions: Wash legs with soap and water once a day, apply a thin coating of Vaseline to both legs and cover with Kerlix and an Avila wrap Keep legs elevated is much as possible, when you are sleeping in a recliner, keep your legs level Follow-up at [facility] as instructed You will needs to to substitute [employer] brand of long-acting insulin at the same dosage when you run out of the Lantus, this medication is [id number] You will need to use [employer] brand of regular insulin pens as supplied by them-this medication is [id number] Discharge Orders/Prescriptions Prescriptions: New amoxicillin 500 mg Capsule 500 mg PO Q8 Qty: 16 0RF Rx Instructions: Start on 05/07/2024 levofloxacin 500 mg Tablet 500 mg PO DAILY@0600 Qty: 5 0RF Rx Instructions: Started on 05/08/2024 insulin lispro [Humalog KwikPen Insulin] 100 unit/mL Insulin Pen 15 unit subcut TIDAC Qty: 0 0RF insulin glargine-yfgn 100 unit/mL (3 mL) Insulin Pen 35 unit subcut BID Qty: 0 0RF lisinopril 20 mg Tablet 10 mg PO DAILY Qty: 30 0RF Novolin R FlexPen 100 unit/mL (3 mL) insulin pen 15 unit subcut TID Qty: 15 0RF Continued furosemide 40 mg tablet 40 mg PO DAILY pravastatin 40 mg tablet 40 mg PO DAILY duloxetine 30 mg capsule,delayed release(DR/EC) 30 mg PO DAILY Discontinued sertraline 100 mg tablet 200 mg PO DAILY spironolactone 25 mg tablet 25 mg PO DAILY metformin 500 mg tablet extended release 24 hr 2,000 mg PO QPM insulin glargine [Lantus Solostar U-100 Insulin] 100 unit/mL (3 mL) insulin pen 30 unit subcut QPM glimepiride 2 mg tablet 2 mg PO DAILY dapagliflozin propanediol [Farxiga] 10 mg tablet 10 mg PO DAILY gabapentin 300 mg capsule 600 mg PO BID pyridoxine (vitamin B6) PO ferrous sulfate [iron] 325 mg (65 mg iron) tablet 325 mg PO DAILY Referrals / Follow Up: Amandeep Rothman MD [Primary Care Provider] - Asad Sanchez MD [Non-Staff] - 05/18/24 10:30 am (Appt is @ [facility]) Disposition Disposition (needs filled in before D/C Order can be placed): Home, Self Care
--- NOTE | 2024-05-07 18:18 | DS.PCM_ITS ---
Providers Date of Admission: 05/03/24 Date of Discharge: 05/07/24 Primary Care Physician: Dr. Amandeep Rothman MD Consultations 05/03/24 19:03 Consult: Onc/Wound/edging machine setter Routine Comment: Reason For Visit: DM ERICA CELLULITIS Diagnosis Discharge Diagnosis (1) Bilateral lower leg cellulitis: Status: Acute Code(s): L03.116 - Cellulitis of left lower limb; L03.115 - Cellulitis of right lower limb Plan 1. Hyperosmolar hyperglycemic state-blood sugars are under control, I adjusted the patient's insulin yesterday #2 cellulitis of the lower legs secondary to stasis skin ulcerations-secondary to methicillin sensitive Staph aureus, Serratia, and Citrobacter with possible Pseudomonas #3 uncontrolled type 2 diabetes-complicates care, management, recovery, and prognosis #4 Acute kidney injury #5 elevated lipase-patient has no complaints of any abdominal pain, I do not believe he has pancreatitis #6 chronic depression #7 L5 compression fracture-etiology unclear, patient will need follow-up as an outpatient Total clinical time spent by myself addressing the patient's medical issues, reviewing all of his data, and collaborating with patient's care team: 35 minutes Medications at Discharge Home Medications furosemide 40 mg tablet 40 mg PO DAILY EDEMA 05/03/24 pravastatin 40 mg tablet 40 mg PO DAILY CHOLESTEROL 05/03/24 amoxicillin 500 mg capsule 500 mg PO Q8 #16 caps 05/07/24 amoxicillin 500 mg capsule 500 mg PO TID #16 caps 05/07/24 insulin glargine-yfgn 100 unit/mL (3 mL) subcutaneous pen 35 unit (0.35 mL) subcut BID #0 mL 05/07/24 insulin lispro 100 unit/mL subcutaneous pen (Humalog KwikPen (U-100) Insulin) 15 unit (0.15 mL) subcut TIDAC #0 mL 05/07/24 insulin regular human 100 unit/mL (3 mL) subcutaneous pen (Novolin R FlexPen) 15 unit (0.15 mL) subcut TID #15 mL 05/07/24 levofloxacin 500 mg tablet 500 mg PO DAILY #5 tabs 05/07/24 levofloxacin 500 mg tablet 500 mg PO DAILY@0600 #5 tabs 05/07/24 lisinopril 20 mg tablet 10 mg (1/2 x 20 mg) PO DAILY #30 tabs 05/07/24 lisinopril 20 mg tablet 10 mg (1/2 x 20 mg) PO DAILY #30 tabs 05/07/24 duloxetine 60 mg capsule,delayed release (Cymbalta) 60 mg PO DAILY #1 cap 05/08/24 Hospital Course Operations None Procedures None Summary of Care Provided Minutes Spent on Discharge: 31 Hospital Course: This 58-year-old white male was seen in the emergency room at [facility] with a complaint of a syncopal episode 2 nights prior. Patient complained of generalized malaise. He denied any chest pain or shortness of breath. Workup in the ER showed a normal white blood cell count, hemoglobin was 12.8, creatinine was elevated at 3.4 and BUN was 69. Sodium was 121, patient's glucose was 554, lipase was over 250 and urinalysis was unremarkable. CT of the brain revealed no acute pathology, chest abdomen and pelvis CT showed mild increased markings at the lung bases consistent suggestive of scarring, there was loss of height of the patient's L5 vertebrae. Patient had no complaints of any abdominal pain or lower back pain however. Patient was admitted to PCU for bilateral cellulitis of the lower legs and hyperosmolar hyperglycemic state, patient's blood sugars were monitored and daily labs were obtained, patient's creatinine improved as did his blood sugar, it was revealed that the patient was not taking his home medications as directed. Wound care saw the patient, cultures the patient's legs grew out 3 different organisms, these organisms were susceptible to oral antibiotics. Patient's affect was blunted during his hospital stay. He was seen by PT and OT and he was able to ambulate without difficulty. On 05/08/2024, patient was seen and examined:alert, oriented x3 and no apparent distress General Appearance: cooperative, well kempt and well developed Orientation / Consciousness: awake, oriented to person, oriented to place and oriented to time HEENT normocephalic, head/scalp atraumatic and moist oral mucous membranes Eyes PERRL, EOMs intact bilaterally and conjunctivae normal Neck supple, no JVD, thyroid normal and no carotid bruits General: trachea midline Resp normal respiratory effort and clear to auscultation bilaterally Auscultation: Negative for rales, rhonchi or wheezes Cardio regular rate, regular rhythm, no murmurs, no rub and no gallops GI normal to inspection, nondistended, normoactive bowel sounds, soft to palpation, non-tender and non-distended Skin Skin Narrative: Multiple skin breakdown areas are noted over both lower legs, there is stasis changes to the skin over the lower legs Neuro oriented x3, CN's II-XII intact bilaterally, moves all extremities, no focal motor deficits and no sensory deficits noted Sensorium / Orientation: awake and alert Speech: speech normal Psych Patient has flat affect Patient was felt to be stable for discharge home on 05/08/2024. Weight / BMI Weight Weight: 114.3 kg Body Mass Index (BMI) 36.7 ABG / Lab / Microbiology Data 05/05/24 07:39 05/07/24 05:10 Laboratory: Laboratory Results - last 24 hr 05/06/24 21:40: POC Glucose 196 H 05/07/24 03:23: POC Glucose 144 H 05/07/24 05:10: Sodium 132 L, Potassium 3.3 L, Chloride 101, Carbon Dioxide 21.0, Anion Gap 10, BUN 35 H, Creatinine 1.14, Estim Creat Clear Calc 87.25, Est GFR (MDRD) Af Amer 84, Est GFR (MDRD) Non-Af 69, BUN/Creatinine Ratio 30.7 H, G lucose 160 H, Calcium 8.6 05/07/24 07:55: POC Glucose 137 H 05/07/24 11:14: POC Glucose 210 H 05/07/24 14:48: POC Glucose 135 H 05/07/24 16:26: POC Glucose 129 H Microbiology: Microbiology 05/03/24 13:15 Wound - Leg, Right Gram Stain - Final 05/03/24 13:15 Wound - Leg, Right Wound Culture - Final Citrobacter braakii Serratia liquefaciens group Staphylococcus aureus Pseudomonas aeruginosa Providencia rettgeri 05/03/24 13:35 Blood Culture (Wb) - Anticubital Right Blood Culture - Preliminary No growth in 48 hours. 05/03/24 13:12 Blood Culture (Wb) - Anticubital Left Blood Culture - Preliminary No growth in 48 hours. 05/03/24 13:15 Mucosa - Nose SARS-CoV-2, Influenza & RSV (PCR) - Final D/C Instructions Discharge Diet: 1800 Calorie Control Diet Weight Bearing Status: Full weight bearing Meaningful Use Info Meaningful Use Meaningful Use Diagnoses (Choose all that apply): None applicable Ischemic Stroke Statin Dosing Therapy Reference: STATIN DOSE THERAPY REFERENCE: * Patients > 75 years receive moderate or high dose statin therapy. * Patients 75 years or YOUNGER should receive HIGH intensity statin dose unless contraindicated. You will be required to document reason for non-treatment if statin daily dose does not meet guidelines. HIGH DOSE STATIN THERAPY DAILY Atorvastatin > than or = to 40 mg Rosuvastatin > than or = to 20 mg Amlodipine + Atorvastatin > than or = to 2.5/40 mg Ezetimibe + Simvastatin 10/80 mg Simvastatin 80mg Discharge Plan Admission Admit Date/Time: 05/03/24 17:07 Primary Reason for Your Visit: Cellulitis of the legs, acute kidney injury Attending Provider: Sen Smart Primary Care Provider: Amandeep Rothman Consulting Providers: Stephen Varela Instructions Additional Instructions / Restrictions: Wash legs with soap and water once a day, apply a thin coating of Vaseline to both legs and cover with Kerlix and an Avila wrap Keep legs elevated is much as possible, when you are sleeping in a recliner, keep your legs level Follow-up at [facility] as instructed You will needs to to substitute [employer] brand of long-acting insulin at the same dosage when you run out of the Lantus, this medication is [id number] You will need to use [employer] brand of regular insulin pens as supplied by them- this medication is [id number] Discharge Orders/Prescriptions Prescriptions: New amoxicillin 500 mg Capsule 500 mg PO Q8 Qty: 16 0RF Rx Instructions: Start on 05/07/2024 levofloxacin 500 mg Tablet 500 mg PO DAILY@0600 Qty: 5 0RF Rx Instructions: Started on 05/08/2024 insulin lispro [Humalog KwikPen Insulin] 100 unit/mL Insulin Pen 15 unit subcut TIDAC Qty: 0 0RF insulin glargine-yfgn 100 unit/mL (3 mL) Insulin Pen 35 unit subcut BID Qty: 0 0RF lisinopril 20 mg Tablet 10 mg PO DAILY Qty: 30 0RF Novolin R FlexPen 100 unit/mL (3 mL) insulin pen 15 unit subcut TID Qty: 15 0RF amoxicillin 500 mg capsule 500 mg PO TID Qty: 16 0RF Rx Instructions: Begin 05/07/2024 levofloxacin 500 mg tablet 500 mg PO DAILY Qty: 5 0RF Rx Instructions: Start on 05/08/2024 lisinopril 20 mg tablet 10 mg PO DAILY Qty: 30 0RF Rx Instructions: One half tab daily duloxetine [Cymbalta] 60 mg capsule,delayed release(DR/EC) 60 mg PO DAILY Qty: 1 0RF Continued furosemide 40 mg tablet 40 mg PO DAILY pravastatin 40 mg tablet 40 mg PO DAILY Discontinued sertraline 100 mg tablet 200 mg PO DAILY spironolactone 25 mg tablet 25 mg PO DAILY metformin 500 mg tablet extended release 24 hr 2,000 mg PO QPM duloxetine 30 mg capsule,delayed release(DR/EC) 30 mg PO DAILY insulin glargine [Lantus Solostar U-100 Insulin] 100 unit/mL (3 mL) insulin pen 30 unit subcut QPM glimepiride 2 mg tablet 2 mg PO DAILY dapagliflozin propanediol [Farxiga] 10 mg tablet 10 mg PO DAILY gabapentin 300 mg capsule 600 mg PO BID pyridoxine (vitamin B6) PO ferrous sulfate [iron] 325 mg (65 mg iron) tablet 325 mg PO DAILY Referrals / Follow Up: Amandeep Rothman MD [Primary Care Provider] - Asad Sanchez MD [Non-Staff] - 05/18/24 10:30 am (Appt is @ [facility]) Disposition Disposition (needs filled in before D/C Order can be placed): Home, Self Care Charges/Coding Visit Charges Inpatient E&M: 40546 Disch Hosp >30min
--- NOTE | 2024-05-07 19:03 | PN.HOSP_ITS ---
Reason for Visit Reason for Visit: Diagnoses Type 2 diabetes mellitus with hyperosmolarity without nonketotic hyperglycemic- hyperosmolar coma ([facility]) (05/03/24) Cellulitis of right lower limb (05/03/24) Cellulitis of left lower limb (05/03/24) Fracture of one rib, left side, initial encounter for closed fracture (05/03/24) Subjective Subjective Patient was seen and examined today, there were problems with the patient's blood pressure today and he was given boluses of fluid which corrected his blood pressure. I felt he was stable for discharge, the arrived late this afternoon and felt that patient was not stable to go home and refused to take the patient home, his discharge was canceled, he will be reevaluated in the morning. Objective Data Objective Data Vital Signs: Vital Signs Temp Pulse Resp BP Pulse Ox O2 Del Method O2 Flow Rate 98.3 F 99 17 116/55 L 97 Nasal Cannula 2 05/07/24 16:23 05/07/24 16:23 05/07/24 16:23 05/07/24 16:23 05/07/24 16:23 05/07/24 16:23 05/07/24 16:23 Oxygen Flow Rate (L/min) 2 Oxygen Delivery Method Nasal Cannula Weight: 114.3 kg Body Mass Index (BMI) 36.7 Intake & Output: Intake and Output for Last 24 Hours 05/05/24 05/06/24 05/07/24 23:59 23:59 23:59 Intake Total 2059 / 0 1270.63 / 1270.63 1690 / 1690 Output Total 1950 / 1950 1900 / 1900 650 / 650 Balance 110 / 110 -629.37 / -629.37 1040 / 1040 Lab / Micro Data 05/05/24 07:39 05/07/24 05:10 Labs: Laboratory Results - last 24 hr 05/06/24 21:40: POC Glucose 196 H 05/07/24 03:23: POC Glucose 144 H 05/07/24 05:10: Sodium 132 L, Potassium 3.3 L, Chloride 101, Carbon Dioxide 21.0, Anion Gap 10, BUN 35 H, Creatinine 1.14, Estim Creat Clear Calc 87.25, Est GFR (MDRD) Af Amer 84, Est GFR (MDRD) Non-Af 69, BUN/Creatinine Ratio 30.7 H, G lucose 160 H, Calcium 8.6 05/07/24 07:55: POC Glucose 137 H 05/07/24 11:14: POC Glucose 210 H 05/07/24 14:48: POC Glucose 135 H 05/07/24 16:26: POC Glucose 129 H Micro: Microbiology 05/03/24 13:15 Wound - Leg, Right Gram Stain - Final 05/03/24 13:15 Wound - Leg, Right Wound Culture - Final Citrobacter braakii Serratia liquefaciens group Staphylococcus aureus Pseudomonas aeruginosa Providencia rettgeri 05/03/24 13:35 Blood Culture (Wb) - Anticubital Right Blood Culture - Preliminary No growth in 48 hours. 05/03/24 13:12 Blood Culture (Wb) - Anticubital Left Blood Culture - Preliminary No growth in 48 hours. 05/03/24 13:15 Mucosa - Nose SARS-CoV-2, Influenza & RSV (PCR) - Final Physical Exam Narrative General Appearance: cooperative, well kempt and well developed Orientation / Consciousness: awake, oriented to person, oriented to place and oriented to time HEENT normocephalic, head/scalp atraumatic and moist oral mucous membranes Eyes PERRL, EOMs intact bilaterally and conjunctivae normal Neck supple, no JVD, thyroid normal and no carotid bruits General: trachea midline Resp normal respiratory effort and clear to auscultation bilaterally Auscultation: Negative for rales, rhonchi or wheezes Cardio regular rate, regular rhythm, no murmurs, no rub and no gallops GI normal to inspection, nondistended, normoactive bowel sounds, soft to palpation, non-tender and non-distended Skin Skin Narrative: Patient's legs are wrapped with surgical dressing, this was not removed to inspect the area Neuro oriented x3, CN's II-XII intact bilaterally, moves all extremities, no focal motor deficits and no sensory deficits noted Sensorium / Orientation: awake and alert Speech: speech normal Psych affect normal Assessment & Plan Assessment/Plan (1) Hyperosmolar hyperglycemic state (HHS): (2) Bilateral lower leg cellulitis: PLAN: Plan 1. Hyperosmolar hyperglycemic state-resolved at this time #2 cellulitis of the lower legs secondary to stasis skin ulcerations-secondary to methicillin sensitive Staph aureus, Serratia, and Citrobacter with possible Pseudomonas, patient remains on amoxicillin and Levaquin orally #3 uncontrolled type 2 diabetes-complicates care, management, recovery, and prognosis #4 elevated creatinine-this has resolved at this time #5 elevated lipase-patient has no complaints of any abdominal pain, I do not believe he has pancreatitis #6 hypotension-probably as a result of diuretic usage, I have elected to stop his spironolactone, he will continue with Lasix I feel the patient was stable for discharge today, again patient's refused to take him home today feeling that he was not stable for discharge. His discharge was canceled today, I will reevaluate the patient tomorrow morning Total clinical time spent by myself addressing the patient's medical issues, reviewing all of his data, and collaborating with patient's care team: 35 minutes Charges/Coding Visit Charges Inpatient E&M: 55310 Subs Hosp L2
[2024-05-07 22:26] LABS: Bedside Glucose 147 mg/dL (74-106)
[2024-05-08 02:20] VITALS: BP 102/65; PULSE 100; RESP 17; TEMP 36.5; O2SAT 99
[2024-05-08] MEDS: Insulin Lispro 100 UNIT/ML INSULN.PEN SC ×2 (03:01→11:05)
[2024-05-08 03:05] VITALS: RESP 17; O2SAT 98
[2024-05-08 03:20] LABS: Bedside Glucose 161 mg/dL (74-106)
--- NOTE | 2024-05-08 03:42 | CPS ---
Pt has own cpap machine from home. however, pt has been declining to wear it the past few nights. pt will wear o2 prn at night here in hospital instead of cpap. RN aware.
[2024-05-08] MEDS: AMOXICILLIN 500 MG CAPSULE PO ×2 (05:47→14:16)
[2024-05-08] MEDS: levoFLOXacin 500 MG Tablet PO (05:48)
[2024-05-08] MEDS: Insulin Lispro 100 UNIT/ML INSULN.PEN 15 UNIT SC ×2 (08:33→11:05)
[2024-05-08] MEDS: Enoxaparin 40 MG/0.4 ML Syringe SC (08:34)
[2024-05-08] MEDS: DULoxetine Hcl 30 MG Capsule PO (08:34)
[2024-05-08] MEDS: Pravastatin 40 MG Tablet PO (08:34)
[2024-05-08 08:38] VITALS: BP 97/68; PULSE 99; RESP 19; TEMP 36.8; O2SAT 95
[2024-05-08 09:27] LABS: Bedside Glucose 144 mg/dL (74-106)
[2024-05-08] MEDS: Insulin Glargine-YFGN 100 UNIT/ML Pen 35 UNIT SC (11:06)
[2024-05-08 11:33] LABS: Bedside Glucose 220 mg/dL (74-106)
[2024-05-08 14:14] VITALS: BP 110/61; PULSE 106; RESP 17; TEMP 36.7; O2SAT 100
--- NOTE | 2024-05-08 14:49 | CASEMGMT ---
Patient has order for discharge. RN CM in to discuss needs at discharge. Patient denies additional needs at discharge. Patient setup with CCN and has follow-up appt made at [facility]. Patient denied further needs at this time. Patient had no further questions or concerns.
--- NOTE | 2024-05-09 09:23 | CCN.REFER ---
PATIENT AGREEABLE TO CCN SERVICES.
== END 2024-05-08 15:45 | disposition home or self-care (01) | DRG 602 ==
LOC: ED 16:29 → PCU 17:19
PROVIDERS: Admitting Provider Internal Medicine; Emergency Provider Emergency Medicine; PCP Family Medicine; Visit Provider Internal Medicine
DX: L03.115 Cellulitis of right lower limb (principal); E11.00 Type 2 diabetes mellitus with hyperosmolarity without nonketotic hyperglycemic-hyperosmolar coma (NKHHC); L97.811 Non-pressure chronic ulcer of other part of right lower leg limited to breakdown of skin; S22.32XA Fracture of one rib, left side, initial encounter for closed fracture; N17.9 Acute kidney failure, unspecified; L97.821 Non-pressure chronic ulcer of other part of left lower leg limited to breakdown of skin; S00.83XA Contusion of other part of head, initial encounter; Z79.4 Long term (current) use of insulin; F32.A Depression, unspecified; I87.2 Venous insufficiency (chronic) (peripheral); I95.2 Hypotension due to drugs; I89.0 Lymphedema, not elsewhere classified; E78.00 Pure hypercholesterolemia, unspecified; G47.33 Obstructive sleep apnea (adult) (pediatric); W01.198A Fall on same level from slipping, tripping and stumbling with subsequent striking against other object, initial encounter; E66.9 Obesity, unspecified; L03.116 Cellulitis of left lower limb; B95.61 Methicillin susceptible Staphylococcus aureus infection as the cause of diseases classified elsewhere; B96.5 Pseudomonas (aeruginosa) (mallei) (pseudomallei) as the cause of diseases classified elsewhere; B96.89 Other specified bacterial agents as the cause of diseases classified elsewhere; Z68.36 Body mass index [BMI] 36.0-36.9, adult; T50.0X5A Adverse effect of mineralocorticoids and their antagonists, initial encounter; Y92.239 Unspecified place in hospital as the place of occurrence of the external cause; Z79.84 Long term (current) use of oral hypoglycemic drugs; Z79.899 Other long term (current) drug therapy
CPT/HCPCS: 36415; 70450; 71250; 74176; 80048; 80053; 80076; 80202; 81001; 82248; 82962; 83036; 83605; 83690; 83735; 83880; 84100; 84443; 84484; 85025; 85610; 85730; 87040; 87070; 87077; 87184; 87186; 87205; 87631; 93005; 93306; 93970; 97110; 97162; 97166; 97530; 97535; 97802; 99285; Q9957; A4216; C8929; J2405

== ENCOUNTER 2024-05-13 08:44 | Inpatient (IN) | payer SELFPAY ==
[2024-05-13] VITALS (10 sets, daily range): BP systolic 84–105; BP diastolic 48–84; PULSE 107–120; RESP 16–33; TEMP 36.3–37.1; O2SAT 92–97; BMI 37.3; BMI 36.2
--- NOTE | 2024-05-13 09:07 | EKG12_ITS ---
Test Reason : DIZZY Blood Pressure : / mmHG Vent. Rate : 108 BPM Atrial Rate : 108 BPM P-R Int : 174 ms QRS Dur : 088 ms QT Int : 358 ms P-R-T Axes : 046 -06 027 degrees QTc Int : 479 ms Sinus tachycardia Otherwise normal ECG Confirmed by Tio Gamble ([id number]), web editor EDITH HERNANDEZ ([id number]) on 05/15/2024 7:57:48 AM Referred By: STEVAN Confirmed By:Tio Gamble
--- NOTE | 2024-05-13 09:07 | CT_ITS ---
EXAM: CT HEAD WITHOUT INTRAVENOUS CONTRAST CLINICAL INDICATION: fall TECHNIQUE: Multiple axial images were obtained of the head without intravenous contrast. This CT exam was performed using one or more of the following dose reduction techniques: automated exposure control, adjustment of the mA and/or kV according to patient size, and/or use of iterative reconstruction technique. COMPARISON: CT Head dated 05/03/2024 FINDINGS: BRAIN AND EXTRA-AXIAL SPACES: Normal. Normal brain attenuation. No intra- or extra-axial hemorrhage. No acute infarct. No intracranial mass or mass effect. There is preservation of the martinez/white matter interface. Posterior fossa structures are unremarkable. Ventricles are appropriate for age. No hydrocephalus. Basal cisterns are patent. BONES/JOINTS: Normal calvarium. SINUSES: No acute sinusitis. MASTOID AIR CELLS: Normal. Clear. CT/Brain/Head without Contrast IMPRESSION: No acute intracranial abnormality. No interval change. Electronically Signed: Mika León MD at 10:10 EDT ,
--- NOTE | 2024-05-13 09:08 | CT_ITS ---
EXAM: CT ABDOMEN AND PELVIS WITHOUT INTRAVENOUS CONTRAST CLINICAL INDICATION: fall, left sided bruising TECHNIQUE: Helically acquired images were obtained of the abdomen and pelvis without intravenous contrast. This CT exam was performed using one or more of the following dose reduction techniques: automated exposure control, adjustment of the mA and/or kV according to patient size, and/or use of iterative reconstruction technique. COMPARISON: No relevant prior studies available. FINDINGS: LOWER THORAX: Normal. Normal heart size. Prominent coronary artery calcification. ABDOMEN: LIVER: Nodular liver contour suggests underlying liver cirrhosis. GALLBLADDER AND BILE DUCTS: 18 mm calcified gallstone. PANCREAS: Normal. No focal cystic mass. SPLEEN: Spleen is enlarged measuring 16.4 cm in length. ADRENALS: Normal. No nodules. KIDNEYS AND URETERS: Normal. No hydronephrosis. STOMACH AND BOWEL: Surgical changes of partial colectomy. PELVIS: APPENDIX: See above. BLADDER: Normal. REPRODUCTIVE: Unremarkable as visualized. No mass. ABDOMEN and PELVIS: INTRAPERITONEAL SPACE: Normal. No free air. No evidence of hemoperitoneum. BONES/JOINTS: Chronic compression deformities of the L1 and L5 vertebral bodies. SOFT TISSUES: 4.4 cm fat-containing periumbilical hernia. VASCULATURE: No aortic aneurysm. LYMPH NODES: Mildly enlarged bilateral external iliac lymph nodes with short axis diameter of [address]/Abdomen/Pelvis without Cont IMPRESSION: 1. No acute abdominal or pelvic abnormality. 2. Cholelithiasis. 3. Findings suggestive of liver cirrhosis and portal hypertension. 4. Mildly enlarged bilateral external iliac lymph nodes of uncertain significance. Electronically Signed: Mika León MD at 10:20 EDT ,
--- NOTE | 2024-05-13 09:09 | EX.ED.DYSGE1 ---
HPI History of Present Illness Chief Complaint: Syncope Informant: patient and EMS Narrative Narrative: Patient presents via EMS secondary to recurrent syncope. Patient states that he gets lightheaded and dizzy anytime he stands. He has been passing out on a more regular basis. His morning he was found lying on the floor after a fall from a syncopal episode. Patient was admitted to the hospital May 03 through the secondary to syncope, bilateral lower extremity cellulitis, and high blood sugars. He is still on antibiotics for his legs. He states his blood sugars have been running in the 200s and below. [facility] Medical History Colon cancer Chronic venous insufficiency Sleep apnea Hypercholesteremia Diabetes mellitus Home Medications ?Medication ?Instructions ?Recorded ?Last Taken ?Type furosemide 40 mg tablet 40 mg PO DAILY EDEMA 05/03/24 Unknown History pravastatin 40 mg tablet 40 mg PO DAILY CHOLESTEROL 05/03/24 Unknown History amoxicillin 500 mg capsule 500 mg PO Q8 #16 caps 05/07/24 Unknown Rx insulin glargine-yfgn 100 unit/mL 35 unit (0.35 mL) subcut BID #0 mL 05/07/24 Unknown Rx (3 mL) subcutaneous pen insulin lispro 100 unit/mL 15 unit (0.15 mL) subcut TIDAC #0 05/07/24 Unknown Rx subcutaneous pen (Humalog KwikPen mL (U-100) Insulin) insulin regular human 100 unit/mL 15 unit (0.15 mL) subcut TID #15 mL 05/07/24 Unknown Rx (3 mL) subcutaneous pen (Novolin R FlexPen) levofloxacin 500 mg tablet 500 mg PO DAILY@0600 #5 tabs 05/07/24 Unknown Rx lisinopril 20 mg tablet 10 mg (1/2 x 20 mg) PO DAILY #30 05/07/24 Unknown Rx tabs lisinopril 20 mg tablet 10 mg (1/2 x 20 mg) PO DAILY #30 05/07/24 Unknown Rx tabs duloxetine 60 mg capsule,delayed 60 mg PO DAILY #1 cap 05/08/24 Unknown Rx release (Cymbalta) Allergy/AdvReac Type Severity Reaction Status Date / Time Tetanus Vaccines and Toxoid AdvReac Nausea Verified 05/13/24 08:48 (Tetanus Vaccines & Toxoid) Social History Smoking Status: Never smoker substance use type: does not use ROS ROS ED Constitutional Constitutional ED: Denies chills or fever(s) Eyes Eyes: Denies discharge from eye(s) ENT ENT ED: Denies discharge from eye(s), rhinorrhea or sore throat Cardiovascular Cardiovascular: Denies palpitations Respiratory/Chest Respiratory/Chest: Denies cough or dyspnea Gastrointestinal Gastrointestinal: Reports abdominal pain; Denies diarrhea, nausea or vomiting Genitourinary Genitourinary ED: Denies dysuria Musculoskeletal Musculoskeletal: Reports extremity pain; Denies back pain Integumentary Reports other Details: Bilateral lower extremity wounds ; Denies Abrasions or rash Neurologic Neurologic: Reports weakness; Denies headache(s) Psychiatric Psychiatric: Denies anxiety or depression Allergic/Immunologic Allergic/Immunologic ED: Denies lip swelling or urticaria EXAM Physical Exam Const Vital Signs: 05/13/24 08:45 05/13/24 08:45 05/13/24 10:45 Temperature 97.4 F L Temperature Source Temporal Pulse Rate 107 H 114 H Respiratory Rate 18 31 H Respiratory Effort Normal Non-Labored Respiratory Pattern Normal Blood Pressure 94/48 L 92/60 Blood Pressure Mean 63 70 Pulse Ox 92 97 Oxygen Delivery Method Room Air Room Air 05/13/24 12:00 Temperature Temperature Source Pulse Rate 115 H Respiratory Rate Respiratory Effort Respiratory Pattern Blood Pressure 84/55 L Blood Pressure Mean 64 Pulse Ox 97 Oxygen Delivery Method Positive well nourished and well developed General Appearance ED: well developed HEENT Reports moist mucous membranes Eyes EOMs intact bilaterally Chest Wall inspection of chest normal and palpation of chest normal Resp normal respiratory effort and clear to auscultation bilaterally Cardio regular rhythm Rate: tachycardic GI GI Narrative: Abdomen soft with no focal tenderness. He does have older appearing bruising noted over the left lateral abdominal wall. Neuro oriented x3 Neuro Narrative: Generalized weakness but no focal neurologic deficit. Psych mental status grossly normal MDM MDM MDM Narrative Medical decision making narrative: Patient placed on surveillance monitor. EKG obtained to evaluate for cardiac arrhythmia/ischemia. IV line established. Patient given IV fluid bolus for hypotension and tachycardia. Labwork obtained to evaluate for leukocytosis, anemia, and electrolyte derangement. Given the patient's fall we will obtain a CT scan of the head along with abdomen pelvis and a chest x-ray to evaluate for any acute internal injury. History & Record Review Discussion w/independent historian: Patient Lab Data Attestation: I reviewed the patient's lab results. Labs: Laboratory Results - last 24 hr 05/13/24 09:20 WBC 14.4 H RBC 3.90 L Hgb 11.1 L Hct 33.6 L MCV 86.2 MCH 28.5 MCHC 33.0 RDW Std Deviation 47.8 H RDW Coeff of Henri 15.2 H Plt Count 241 MPV 9.5 Immature Gran % (Auto) 1.900 H Neut % (Auto) 83.0 H Lymph % (Auto) 8.0 L [place] % (Auto) 6.3 Eos % (Auto) 0.4 Baso % (Auto) 0.4 Absolute Neuts (auto) 11.9 H Absolute Lymphs (auto) 1.15 Nucleated RBC % 0 Sodium 129 L Potassium 3.6 Chloride 99 Carbon Dioxide 18.0 L Anion Gap 12 BUN 58 H Creatinine 3.95 H Estim Creat Clear Calc 25.59 Est GFR (MDRD) Af Amer 20 L Est GFR (MDRD) Non-Af 17 L BUN/Creatinine Ratio 14.7 Glucose 238 H Lactic Acid 1.6 Calcium 8.8 Total Bilirubin 0.60 Direct Bilirubin 0.28 AST 17 ALT 16 Alkaline Phosphatase 134 H Troponin I High Sens 6 Total Protein 7.2 Albumin 2.1 L Globulin 5.1 H Acetone Level NEGATIVE Radiography Chest X-Ray - ED: 1 View, Read by ED Physician and Chronic Changes Diagnostic Testing: Clinical Impression(s) from Imaging Studies Brain CT 05/13/24 09:07 IMPRESSION: No acute intracranial abnormality. No interval change. Electronically Signed: Mika León MD at 10:10 EDT , Abdomen/Pelvis CT 05/13/24 09:08 IMPRESSION: 1. No acute abdominal or pelvic abnormality. 2. Cholelithiasis. 3. Findings suggestive of liver cirrhosis and portal hypertension. 4. Mildly enlarged bilateral external iliac lymph nodes of uncertain significance. Electronically Signed: Mika León MD at 10:20 EDT , Chest X-Ray 05/13/24 09:55 IMPRESSION: No acute cardiopulmonary disease. Electronically Signed: Mika León MD at 10:06 EDT , EKG Initial EKG: Attestation: I personally reviewed and interpreted this EKG as follows: Interpretation: Sinus Tachycardia (Sinus tachycardia at 108. No acute ischemia.) Treatment and Re-Evaluation :: CBC was a white count of 14.4 with 83% neutrophils. Hemoglobin is 11.1. Chemistry studies significant for a sodium of 129 and a bicarb of 18. BUN is 58 and creatinine is 3.95. At the time of discharge on the his creatinine was 1.14. Troponin is normal at 6. His serum acetone level is negative. Chest x-ray per my interpretation reveals chronic changes with no focal infiltrate. Radiology interpretation reviewed and agrees. CT scan of the head reveals no acute changes. CT of the abdomen and pelvis reveals no acute abnormalities. Cholelithiasis is noted. On repeat evaluation the patient's leg wraps are taken down. He has mild erythema with peeling skin. Dressings are saturated. Patient's blood pressures remain low in the 80s over 50s. Second liter of IV fluids were opened up. Patient be given Zosyn and vancomycin which she was treated on during last admission. I will speak with hospitalist. Discharge Plan Triage Chief Complaint: Syncope ED Provider: Carin Metcalf Dx/Rx/DC Orders Clinical Impression: Acute kidney injury, Syncope, Cellulitis, Hypotension Prescriptions: No Action furosemide 40 mg tablet 40 mg PO DAILY pravastatin 40 mg tablet 40 mg PO DAILY amoxicillin 500 mg Capsule 500 mg PO Q8 Qty: 16 0RF Rx Instructions: Start on 05/07/2024 levofloxacin 500 mg Tablet 500 mg PO DAILY@0600 Qty: 5 0RF Rx Instructions: Started on 05/08/2024 insulin lispro [Humalog KwikPen Insulin] 100 unit/mL Insulin Pen 15 unit subcut TIDAC Qty: 0 0RF insulin glargine-yfgn 100 unit/mL (3 mL) Insulin Pen 35 unit subcut BID Qty: 0 0RF lisinopril 20 mg Tablet 10 mg PO DAILY Qty: 30 0RF Novolin R FlexPen 100 unit/mL (3 mL) insulin pen 15 unit subcut TID Qty: 15 0RF lisinopril 20 mg tablet 10 mg PO DAILY Qty: 30 0RF Rx Instructions: One half tab daily duloxetine [Cymbalta] 60 mg capsule,delayed release(DR/EC) 60 mg PO DAILY Qty: 1 0RF Primary Care Provider: Taiwo Villarreal Referrals: Amandeep Rothman MD [Non-Staff] - Print Language: Comoran Disposition Disposition: Acute Care Hospital [facility]
[2024-05-13] MEDS: 0.9% Normal Saline (500mL Bag) 500 ML 1000 ML IV (09:15)
[2024-05-13 09:36] LABS: Absolute Lymphocyte Count 1.15 X10^3/uL (0.83-4.51); Absolute Neutrophil Count 11.9 X10^3/uL (2.0-7.7); Basophil# 0.06 X10^3/uL; Basophil% 0.4 % (0-1); Eosinophil# 0.06 X10^3/uL; Eosinophils% 0.4 % (0-5); Hematocrit 33.6 % (40-54); Hemoglobin 11.1 g/dL (13.0-16.5); Lymphocyte # 1.15 X10^3/ul (0.83-4.51); Mean Corpuscular Hgb 28.5 pg (27.0-32.0); Mean Corpuscular Volume 86.2 fL (80-94); Mean Platelet Vol. 9.5 fl (6.2-12.0); Monocyte% 6.3 % (0-10); NRBC Flagged by Analyzer 0 % (0-5); Neutrophil # 11.91 X10^3/uL (2.7-7.7); Platelet Count 241 K/mm3 (150-450); RBC Distribution Width CV 15.2 % (11.6-14.6); RBC Distribution Width SD 47.8 fl (35.1-43.9); White Blood Count 14.4 K/mm3 (4.4-11.0)
--- NOTE | 2024-05-13 09:55 | RAD_ITS ---
EXAM: XR CHEST, 1 VIEW CLINICAL INDICATION: fall TECHNIQUE: Frontal view of the chest. COMPARISON: No relevant prior studies available. FINDINGS: LUNGS AND PLEURAL SPACES: Normal. No consolidation or edema. No pneumothorax. No effusion. HEART: Normal heart size. MEDIASTINUM: No mediastinal or hilar mass. BONES/JOINTS: No acute abnormality. RAD/Chest 1 View (Portable) IMPRESSION: No acute cardiopulmonary disease. Electronically Signed: Mika León MD at 10:06 EDT ,
[2024-05-13 10:01] LABS: Lactic Acid 1.6 mmol/L (0.4-1.9)
[2024-05-13] MEDS: 0.9% Normal Saline (1000mL) 1,000 ML 150 ML IV (10:08)
[2024-05-13 10:18] LABS: AST(SGOT) 17 U/L (15-37); Alanine Aminotransfer ALT/SGPT 16 U/L (16-61); Albumin, Serum 2.1 g/dL (3.2-5.0); Alkaline Phosphatase 134 U/L (45-117); Anion Gap 12 (5-15); BUN 58 mg/dL (7-18); BUN/Creat Ratio 14.7 RATIO (10-20); Bilirubin, Direct 0.28 mg/dL (0.00-0.30); Calcium,Total 8.8 mg/dL (8.5-10.1); Chloride 99 mmol/L (98-107); Creatinine, Serum 3.95 mg/dL (0.70-1.30); EST Glomerular Filtration Rate 17 mL/min (>60); Est Glom Filt Rate - Afr Amer 20 mL/min (>60); Estimated Creatinine Clearance 25.59 ml/min; Globulin 5.1 g/dL (2.2-4.2); Glucose 238 mg/dL (74-106); Potassium 3.6 mmol/L (3.5-5.1); Protein, Total 7.2 g/dL (6.4-8.2); Sodium Level 129 mmol/L (136-145); Troponin-I HS 6 pg/mL (3.0-78.0)
[2024-05-13] MEDS: 0.9% Normal Saline (1000mL) 1,000 ML 999 ML IV ×2 (12:56→13:53)
[2024-05-13] MEDS: Piperacil/Tazobactam 3.375 GM in 0.9% Normal Saline (50mL MB+) 50 ML IV (12:56)
--- NOTE | 2024-05-13 13:12 | HP.PCM.HOS_ITS ---
HPI - General General Date of Admission: 05/13/24 Date of Service: 05/13/24 Chief Complaint: Syncope HPI Narrative ROBERT OVIEDO, is a 58 M who presented to the emergency department [facility] on 05/13/2024 due to recurrent syncope. The patient had a recent admission here from 05/03/2024 through 05/07/2024 with a similar presentation. At that time he had ERICA, significant hyperglycemia, hypotension and his legs were very macerated. He was hydrated and improved glycemic control was obtained and he was placed on antibiotics for his legs and transition to home. He initially was doing well for couple of days and then started to get slowly more confused. His p.o. intake had been evidently very poor for food and liquids. He had still been taking his medications and checking his blood sugars. He reported that his blood sugars have been running in the low 200s or below. Vital signs at the time presentation showed temperature of 97.4, heart rate 107, blood pressure was 94/48 and pulse ox was 92% on room air with repeat at 97% on room air. CBC shows a leukocytosis with a white count of 14.4, hemoglobin of 11.1 and a left shift with an 83.0% neutrophilia. I am unclear of the significance of this as he does appear to be markedly dehydrated. Chemistry panel shows hyponatremia the sodium of 132, bicarb of 18, BUN of 58 and a serum creatinine of 3.95 (BUN at discharge was 35 and serum creatinine at discharge was 1.14). Liver functions are normal. Chest x-ray is unremarkable. EKG showed sinus tachycardia with no acute ischemia and unchanged from previous other than rate. He had significant wounds on bilateral legs with maceration. He was given vancomycin and Zosyn and 2 L of fluids however he remained hypotensive so a 3rd L was given and he will be reevaluated for admission status. [facility] Medical History Colon cancer Chronic venous insufficiency Sleep apnea Hypercholesteremia Diabetes mellitus Home Medications ?Medication ?Instructions ?Recorded ?Last Taken ?Type furosemide 40 mg tablet 40 mg PO DAILY EDEMA 05/03/24 Unknown History pravastatin 40 mg tablet 40 mg PO DAILY CHOLESTEROL 05/03/24 Unknown History amoxicillin 500 mg capsule 500 mg PO Q8 #16 caps 05/07/24 Unknown Rx insulin glargine-yfgn 100 unit/mL 35 unit (0.35 mL) subcut BID #0 mL 05/07/24 Unknown Rx (3 mL) subcutaneous pen insulin lispro 100 unit/mL 15 unit (0.15 mL) subcut TIDAC #0 05/07/24 Unknown Rx subcutaneous pen (Humalog KwikPen mL (U-100) Insulin) insulin regular human 100 unit/mL 15 unit (0.15 mL) subcut TID #15 mL 05/07/24 Unknown Rx (3 mL) subcutaneous pen (Novolin R FlexPen) levofloxacin 500 mg tablet 500 mg PO DAILY@0600 #5 tabs 05/07/24 Unknown Rx lisinopril 20 mg tablet 10 mg (1/2 x 20 mg) PO DAILY #30 05/07/24 Unknown Rx tabs lisinopril 20 mg tablet 10 mg (1/2 x 20 mg) PO DAILY #30 05/07/24 Unknown Rx tabs duloxetine 60 mg capsule,delayed 60 mg PO DAILY #1 cap 05/08/24 Unknown Rx release (Cymbalta) Allergy/AdvReac Type Severity Reaction Status Date / Time Tetanus Vaccines and Toxoid AdvReac Nausea Verified 05/13/24 08:48 (Tetanus Vaccines & Toxoid) Family History unable to obtain unable to obtain Surgical History unable to obtain unable to obtain Social History (Updated 05/13/24 @ 14:[address] Rowena Cm, DO) household members: spouse housing: house Smoking Status: Never smoker alcohol intake: never substance use type: does not use ROS Review of Systems ROS Unobtainable: due to mental status and other Details: Patient alert but somnolent without significant interaction as far as communication Vital Signs Vital Signs Vital Signs: 05/13/24 08:45 05/13/24 08:45 05/13/24 10:45 Temperature 97.4 F L Temperature Source Temporal Pulse Rate 107 H 114 H Respiratory Rate 18 31 H Respiratory Effort Normal Non-Labored Respiratory Pattern Normal Blood Pressure 94/48 L 92/60 Blood Pressure Mean 63 70 Pulse Ox 92 97 Oxygen Delivery Method Room Air Room Air 05/13/24 12:00 Temperature Temperature Source Pulse Rate 115 H Respiratory Rate Respiratory Effort Respiratory Pattern Blood Pressure 84/55 L Blood Pressure Mean 64 Pulse Ox 97 Oxygen Delivery Method Weight Weight: 117.9 kg Body Mass Index (BMI) 37.3 Physical Exam Const alert and no apparent distress; Negative for oriented x3, average body habitus or healthy appearing Constitutional Narrative: Obese, Sleepy, upper middle-aged, white male who appears older than stated age, lying in bed, family at bedside, patient will follow commands but not willing to participate with any conversation at this time and most of the history is obtained from his family member at the bedside and ER documentation Orientation / Consciousness: confused HEENT normocephalic, head/scalp atraumatic, hearing grossly normal bilaterally and moist oral mucous membranes HEENT Narrative: Dentition is poor, Mallampati is 3, no thrush Eyes PERRL and EOMs intact bilaterally; Negative for conjunctivae normal Eyes Narrative: No scleral icterus, Neck no lymphadenopathy and supple Neck Narrative: Neck is short and thick, trachea midline Resp normal respiratory effort, no retractions, no use of accessory muscles and clear to auscultation bilaterally Auscultation: Negative for rales, rhonchi or wheezes Cardio regular rhythm, S1 normal heart sound, S2 normal heart sound, no murmurs, no rub, no gallops and no clicks Cardio Narrative: Tachycardia-regular GI normal to inspection, nondistended, normoactive bowel sounds, soft to palpation and non-tender GI Narrative: Ventral hernia present, bowel sounds are good Palpation: hernia Extremity Extremity Narrative: Bilateral lower extremity edema with marked macerations and scattered wounds in various stages of healing and depth, serous drainage noted on dressings, no cyanosis or clubbing Skin Skin Narrative: yeast noted in the abdominal fold with scattered areas of superficial wounds and mild amount of maceration especially on the right, legs as noted above Neuro CN's II-XII intact bilaterally, moves all extremities and no focal motor deficits Neuro Narrative: Patient was quite somnolent but able to follow commands consistently, speech not able to be assessed as he was not answering questions at the time of my evaluation Psych Psych Narrative: Difficult assess at this time due to acute illness Results Lab / Micro Data 05/13/24 09:20 05/13/24 09:20 Labs: Laboratory Results - last 24 hr 05/13/24 09:20: WBC 14.4 H, RBC 3.90 L, Hgb 11.1 L, Hct 33.6 L, MCV 86.2, MCH 28.5, MCHC 33.0, RDW Std Deviation 47.8 H, RDW Coeff of Henri 15.2 H, Plt Count 241, MPV 9.5, Immature Gran % (Auto) 1.900 H, Neut % (Auto) 83.0 H, Lymph % (Auto) 8.0 L, [place] % (Auto) 6.3, Eos % (Auto) 0.4, Baso % (Auto) 0.4, Absolute Neuts (auto) 11.9 H, Absolute Lymphs (auto) 1.15, Nucleated RBC % 0, Sodium 129 L, Potassium 3.6, Chloride 99, Carbon Dioxide 18.0 L, Anion Gap 12, BUN 58 H, C reatinine 3.95 H, Estim Creat Clear Calc 25.59, Est GFR (MDRD) Af Amer 20 L, Est GFR (MDRD) Non-Af 17 L, BUN/Creatinine Ratio 14.7, Glucose 238 H, Lactic Acid 1.6, Calcium 8.8, Total Bilirubin 0.60, Direct Bilirubin 0.28, AST 17, ALT 16, A lkaline Phosphatase 134 H, Troponin I High Sens 6, Total Protein 7.2, Albumin 2.1 L, Globulin 5.1 H, Acetone Level NEGATIVE Imaging Radiology Impression Brain CT 05/13/24 09:07 IMPRESSION: No acute intracranial abnormality. No interval change. Electronically Signed: Mika León MD at 10:10 EDT , Abdomen/Pelvis CT 05/13/24 09:08 IMPRESSION: 1. No acute abdominal or pelvic abnormality. 2. Cholelithiasis. 3. Findings suggestive of liver cirrhosis and portal hypertension. 4. Mildly enlarged bilateral external iliac lymph nodes of uncertain significance. Electronically Signed: Mika León MD at 10:20 EDT , Chest X-Ray 05/13/24 09:55 IMPRESSION: No acute cardiopulmonary disease. Electronically Signed: Mika León MD at 10:06 EDT , Assessment & Plan Assessment/Plan (1) Cellulitis: (2) Hypotension: (3) Syncope: (4) Acute kidney injury: (5) Metabolic acidosis: (6) Hyponatremia: (7) Dehydration: (8) Leukocytosis: (9) Candidiasis, intertrigo: (10) Toxic metabolic encephalopathy: PLAN: Plan Acute hypotension with syncope secondary to severe dehydration -Since discharge from last hospitalization p.o. intake has been poor for both food and fluids resulting in severe dehydration -Improving slowly with IV fluids -Has received 3 L of bolus with maps now in the 70s -Continue IV fluids -Trend blood pressure -With lower extremity cellulitis will check blood cultures -Start broad-spectrum antibiotics however my suspicion for sepsis is low ERICA on CKD stage II secondary to dehydration -Baseline serum creatinine runs between 1 and 1.3 -Current serum creatinine is 3.95 -Hold home Lasix -hold home lisinopril -Hydration as above -Will hold on any further extensive workup at this time as I do feel that he is likely dehydrated -If no improvement tomorrow will place [facility] and obtain urine studies with consideration for nephrology consultation -Repeat BMP in a.m. Toxic/metabolic encephalopathy -Likely related to markedly elevated serum creatinine -Continue to monitor Leukocytosis -May be multifactorial with severe dehydration +/- bilateral lower extremity infection -Antibiotics -Repeat in a.m. after hydration Hyponatremia -Sodium is 129 on presentation -Highly suspect this is hypovolemic hyponatremia -Patient appears markedly dry on presentation -IV fluids as noted above next-repeat BMP in a.m. -Hold home Lasix Bilateral lower extremity cellulitis -Polymicrobial organisms noted -Start meropenem and vancomycin -ID consultation for assistance with oral antibiotics at discharge -Wound care consultation -Nursing orders for dressing for wet wounds -Keep legs elevated as able Mild metabolic acidosis -likely related to renal failure -Anion gap is normal -repeat lab in a.m. DM-2 uncontrolled -Hemoglobin A1c on 05/03/2024 is 12.3 -Continue subcu insulin with Levemir 35 units twice daily -Continue enteral insulin at 15 units 3 times daily -Hold on sliding scale for now and observe what blood sugars do with this -May need to uptitrate home medications -Highly recommend outpatient endocrinology follow-up after discharge -Accu-Cheks as ordered -Cardiac/carb controlled diet Intertrigo candidiasis -Nystatin powder Hyperlipidemia -Continue home pravastatin Hypertension -Hold home lisinopril -hold home Lasix -Hypotensive on presentation -As needed hydralazine if systolic started to become greater than 160 -Will reinstitute his antihypertensives as able Lower extremity edema -Patient had recent TSH that was unremarkable -Echocardiogram on 05/04/2024 shows an EF of 60% with normal LV function and size--> no pulmonary pressures noted -Hold Lasix -Check bilateral lower extremity Dopplers JOSE -Continue home CPAP History of colon cancer -Stable Depression -Continue home Cymbalta Obesity -BMI 37.3 -recommend weight loss -Complicates treatment, prognosis, outcomes DVT prophylaxis -Heparin 3 times daily CODE STATUS Full code Charges/Coding Visit Charges Inpatient E&M: 27517 Init Hosp L3
[2024-05-13] MEDS: Vancomycin HCl 1,750 MG in 0.9% Normal Saline (500mL Bag) 500 ML 250 MG IV (13:50)
--- NOTE | 2024-05-13 15:23 | NURSING ---
MED SURG DINAH SYNCOPE, RENAL FAILURE, LEG WOUNDS
--- NOTE | 2024-05-13 18:00 | PCM.RX.CS ---
Consult Antibiotic Management Pharmacy has been consulted to manage selected antibiotic: Vancomycin Type of Intervention Type of Consult: New start Suspected Infection Suspected Infection: Skin/Soft tissue Labs Labs: Sodium 129 mmol/L (136-145) L 05/13/24 09:20 Potassium 3.6 mmol/L (3.5-5.1) 05/13/24 09:20 Chloride 99 mmol/L (98-107) 05/13/24 09:20 Carbon Dioxide 18.0 mmol/L (21.0-32.0) L 05/13/24 09:20 Anion Gap 12 (5-15) 05/13/24 09:20 BUN 58 mg/dL (7-18) H 05/13/24 09:20 Creatinine 3.95 mg/dL (0.70-1.30) H 05/13/24 09:20 Est GFR (MDRD) Af Amer 20 mL/min (>60) L 05/13/24 09:20 Est GFR (MDRD) Non-Af 17 mL/min (>60) L 05/13/24 09:20 BUN/Creatinine Ratio 14.7 RATIO (10-20) 05/13/24 09:20 Glucose 238 mg/dL (74-106) H 05/13/24 09:20 Goal Trough Goal Trough: 15-20 mcg/mL Pharmacy Plan for Drug Dosing Pharmacy Plan for Drug Dosing: NEW IV VANCOMYCIN Consulting Physician: Dr. Paula Cm Indication: SSTI Goal Trough: 15-20 SrCr: 3.95 CrCl: 25 mL/min Comments: Patient had initial dose of 1500mg IV x1 in ED administered 05/13 @1350 Vancomycin Dose: 1250mg IV Q24hr to start 05/14/24 @1400 Pending Level: 05/15/24 @1330, prior to 3rd total dose of regimen per protocol Pharmacy Service will continue to monitor and adjust dosing as required.
[2024-05-13 19:10] LABS: Bedside Glucose 158 mg/dL (74-106)
[2024-05-13] MEDS: Insulin Lispro 100 UNIT/ML INSULN.PEN 15 UNIT SC (19:17)
--- NOTE | 2024-05-13 20:42 | CPS ---
Patient has own machine. Settings are CPAP 18, 21%
[2024-05-13] MEDS: Heparin Injection (Vial) 5,000 UNIT/ML VIAL 5000 UNIT SC (21:52)
[2024-05-13] MEDS: Menthol/Lanolin/Calamine/Znox 113 GM Tube 1 APPLIC TOPICAL (21:52)
[2024-05-13] MEDS: Insulin Glargine-YFGN 100 UNIT/ML Pen 35 UNIT SC (21:53)
[2024-05-13] MEDS: Nystatin Powder 15gm Bottle 1 APPLIC TOPICAL (21:54)
[2024-05-13] MEDS: Meropenem 500 MG in 0.9% Normal Saline (50mL MB+) 50 ML 100 MG IV (21:54)
[2024-05-13 22:29] LABS: Bedside Glucose 115 mg/dL (74-106)
--- NOTE | 2024-05-13 23:14 | NURSING ---
pt found stripped of gown and cardiac leads-purewick in floor-pt attends currently dry-placed back on monitor
[2024-05-14 03:45] VITALS: BP 115/50; PULSE 112; RESP 18; TEMP 36.7; O2SAT 93
[2024-05-14 06:00] VITALS: BMI 36.1
[2024-05-14] MEDS: 0.9% Normal Saline (1000mL) 1,000 ML 150 ML IV ×2 (06:17→06:39)
[2024-05-14] MEDS: Menthol/Lanolin/Calamine/Znox 113 GM Tube 1 APPLIC TOPICAL ×3 (06:18→19:55)
[2024-05-14] MEDS: Heparin Injection (Vial) 5,000 UNIT/ML VIAL 5000 UNIT SC ×3 (06:18→19:55)
[2024-05-14] MEDS: Insulin Lispro 100 UNIT/ML INSULN.PEN 15 UNIT SC ×3 (06:40→17:17)
[2024-05-14 06:54] LABS: Absolute Lymphocyte Count 0.79 X10^3/uL (0.83-4.51); Absolute Neutrophil Count 6.9 X10^3/uL (2.0-7.7); Basophil# 0.03 X10^3/uL; Basophil% 0.4 % (0-1); Eosinophil# 0.02 X10^3/uL; Eosinophils% 0.2 % (0-5); Hematocrit 29.5 % (40-54); Hemoglobin 9.4 g/dL (13.0-16.5); Lymphocyte # 0.79 X10^3/ul (0.83-4.51); Lymphocyte % 9.3 % (19-41); Mean Corp Hgb Conc 31.9 g/dL (32-36); Mean Platelet Vol. 9.3 fl (6.2-12.0); Monocyte# 0.65 X10^3/uL; Monocyte% 7.7 % (0-10); NRBC Flagged by Analyzer 0 % (0-5); Neutrophil # 6.89 X10^3/uL (2.7-7.7); Neutrophil % 81.3 % (47-70); POSITIVE COUNT YES; RBC Distribution Width CV 15.4 % (11.6-14.6); Red Blood Count 3.24 M/mm3 (4.6-6.2); White Blood Count 8.5 K/mm3 (4.4-11.0)
[2024-05-14 07:07] LABS: Bedside Glucose 141 mg/dL (74-106)
[2024-05-14 07:42] LABS: ALB/GLOB Ratio 0.4 RATIO (0.9-2.4); AST(SGOT) 20 U/L (15-37); Alanine Aminotransfer ALT/SGPT 16 U/L (16-61); Albumin, Serum 1.6 g/dL (3.2-5.0); Alkaline Phosphatase 106 U/L (45-117); Anion Gap 8 (5-15); BUN 43 mg/dL (7-18); BUN/Creat Ratio 19.9 RATIO (10-20); Calcium,Total 8.1 mg/dL (8.5-10.1); Chloride 114 mmol/L (98-107); Creatinine, Serum 2.16 mg/dL (0.70-1.30); EST Glomerular Filtration Rate 33 mL/min (>60); Est Glom Filt Rate - Afr Amer 40 mL/min (>60); Estimated Creatinine Clearance 47.31 ml/min; Globulin 4.1 g/dL (2.2-4.2); Glucose 154 mg/dL (74-106); Magnesium 1.8 mg/dL (1.6-2.6); Phosphorus 3.8 mg/dL (2.5-4.9); Potassium 3.4 mmol/L (3.5-5.1); Protein, Total 5.7 g/dL (6.4-8.2); Sodium Level 138 mmol/L (136-145)
[2024-05-14 08:44] LABS: Platelet Estimate ADEQUATE (ADEQ)
--- NOTE | 2024-05-14 08:47 | WOUNDNOTE ---
wound photo: left lower leg
--- NOTE | 2024-05-14 08:47 | WOUNDNOTE ---
wound photo: left lower leg
--- NOTE | 2024-05-14 08:48 | WOUNDNOTE ---
wound photo: right lower leg
--- NOTE | 2024-05-14 08:48 | WOUNDNOTE ---
wound photo: right lower leg
[2024-05-14] MEDS: Vancomycin IV 1,000 MG/200 ML BAG 200 MG IV (08:56)
[2024-05-14 09:04] VITALS: BP 109/48; PULSE 99; RESP 23; TEMP 37.1; O2SAT 94
[2024-05-14] MEDS: Lactated Ringers 1,000 ML 100 ML IV ×2 (09:30→19:51)
[2024-05-14] MEDS: 0.9% Saline Lock 10 ML Syringe IV (09:32)
[2024-05-14] MEDS: Nystatin Powder 15gm Bottle 1 APPLIC TOPICAL ×2 (09:48→19:55)
[2024-05-14] MEDS: Potassium Chloride Oral Tablet 20 MEQ 40 MEQ PO (09:53)
[2024-05-14] MEDS: Insulin Glargine-YFGN 100 UNIT/ML Pen 35 UNIT SC ×2 (09:54→22:19)
[2024-05-14] MEDS: DULoxetine Hcl 60 MG Capsule PO (09:54)
[2024-05-14] MEDS: Meropenem 500 MG in 0.9% Normal Saline (50mL MB+) 50 ML 100 MG IV (10:32)
[2024-05-14 11:31] VITALS: PULSE 98; RESP 20; O2SAT 95
[2024-05-14 11:50] LABS: Bedside Glucose 147 mg/dL (74-106)
--- NOTE | 2024-05-14 14:11 | PCM.PN.HOSP ---
Reason for Visit Reason for Visit: Syncope Subjective Subjective Patient still pretty somnolent today however more interactive. I was able to get him to wake up long enough to ensure that he was alert and oriented x 3. He has been pretty sleepy though per discussion with nursing. Objective Data Objective Data Vital Signs: Vital Signs Temp Pulse Resp BP Pulse Ox O2 Del Method 98.7 F 98 20 H 109/48 L 95 Room Air 05/14/24 09:04 05/14/24 11:31 05/14/24 11:31 05/14/24 09:04 05/14/24 11:31 05/14/24 11:31 Oxygen Delivery Method Room Air Weight: 117 kg Body Mass Index (BMI) 36.1 Intake & Output: Intake and Output for Last 24 Hours 05/12/24 05/13/24 05/14/24 23:59 23:59 23:59 Intake Total 4145 / 4911 2314.5 / 2314.5 Balance 4145 / 4911 2314.5 / 2314.5 Lab / Micro Data 05/14/24 06:32 05/14/24 06:32 Labs: Laboratory Results - last 24 hr 05/13/24 18:51: POC Glucose 158 H 05/13/24 21:45: POC Glucose 115 H 05/14/24 06:32: WBC 8.5, RBC 3.24 L, Hgb 9.4 L, Hct 29.5 L, MCV 91.0 D, MCH 29.0, MCHC 31.9 L, RDW Std Deviation 51.0 H, RDW Coeff of Henri 15.4 H, Plt Count , MPV 9.3, Immature Gran % (Auto) 1.100 H, Neut % (Auto) 81.3 H, Lymph % (Auto) 9.3 L, Mckenzie % (Auto) 7.7, Eos % (Auto) 0.2, Baso % (Auto) 0.4, Absolute Neuts (auto) 6.9, Absolute Lymphs (auto) 0.79 L, Nucleated RBC % 0, Platelet Estimate ADEQUATE, Sodium 138, Potassium 3.4 L, Chloride 114 H, Carbon Dioxide 16.0 L, Anion Gap 8, BUN 43 H, Creatinine 2.16 H, Estim Creat Clear Calc 47.31, Est GFR (MDRD) Af Amer 40 L, Est GFR (MDRD) Non-Af 33 L, BUN/Creatinine Ratio 19.9, Glucose 154 H, Calcium 8.1 L, Phosphorus 3.8, Magnesium 1.8, Total Bilirubin 0.60, AST 20, ALT 16, Alkaline Phosphatase 106, Total Protein 5.7 L, Albumin 1.6 L, Globulin 4.1, Albumin/Globulin Ratio 0.4 L 05/14/24 06:36: POC Glucose 141 H 05/14/24 11:28: POC Glucose 147 H Physical Exam Const alert and no apparent distress; Negative for average body habitus or healthy appearing Constitutional Narrative: Obese, Sleepy, upper middle-aged, white male who appears older than stated age, lying in bed sleeping, arousable enough to converse but does fall asleep during our conversation, appears ill but not toxic, patient oriented to self, place, and year but not month. Orientation / Consciousness: confused HEENT normocephalic, head/scalp atraumatic and hearing grossly normal bilaterally HEENT Narrative: Oropharynx is dry, lips are dry, dentition is poor Eyes PERRL and EOMs intact bilaterally; Negative for conjunctivae normal Eyes Narrative: No scleral icterus, Neck no lymphadenopathy and supple Neck Narrative: Neck is short and thick, trachea midline Resp normal respiratory effort, no retractions, no use of accessory muscles and clear to auscultation bilaterally Auscultation: Negative for rales, rhonchi or wheezes Cardio regular rate, regular rhythm, S1 normal heart sound, S2 normal heart sound, no murmurs, no rub, no gallops and no clicks GI normal to inspection, nondistended, normoactive bowel sounds, soft to palpation and non-tender GI Narrative: Ventral hernia present, bowel sounds are good Palpation: hernia Extremity Extremity Narrative: Lower extremity edema bilaterally, dressings now in place, no cyanosis or clubbing Skin No no rashes or lesions noted, No no wounds, No skin turgor normal, no jaundice, no petechiae and no mottling Skin Narrative: Significant intertriginous candidiasis Neuro CN's II-XII intact bilaterally, moves all extremities and no focal motor deficits Neuro Narrative: Patient was quite somnolent but able to follow commands consistently, speech not able to be assessed as he was not answering questions at the time of my evaluation Sensorium / Orientation: oriented to person and oriented to place Psych Psych Narrative: Affect is flat patient appears ill Assessment & Plan Assessment/Plan (1) Cellulitis: (2) Hypotension: (3) Syncope: (4) Acute kidney injury: (5) Metabolic acidosis: (6) Hyponatremia: (7) Dehydration: (8) Leukocytosis: (9) Candidiasis, intertrigo: (10) Toxic metabolic encephalopathy: PLAN: Plan Acute hypotension with syncope secondary to severe dehydration -Blood pressures are improving with hydration however not yet quite back to baseline -Blood cultures are pending -Continue broad-spectrum antibiotics ERICA on CKD stage II secondary to dehydration -Baseline serum creatinine runs between 1 and 1.3 -Serum creatinine on admission was 3.95--> now down to 2.16 today -Continue to hold home Lasix -Continue to hold home lisinopril -Continue IV fluids but will transition to LR due to hyperchloremia -Repeat BMP in a.m. Metabolic acidosis -Non-anion gap and suspect related to acute kidney injury along with hyperchloremia -Check blood gas -Repeat lab in a.m. -Change IV fluids to LR from normal saline to reduce chloride content of fluids Toxic/metabolic encephalopathy -Likely related to markedly elevated serum creatinine -Slowly improving -Continue to monitor Leukocytosis -Resolved Hypovolemic hyponatremia -Resolved Bilateral lower extremity cellulitis -Polymicrobial organisms noted -Continue meropenem and vancomycin -ID consult is pending -Wound care is following -Nursing orders for dressing for wet wounds -Keep legs elevated as able DM-2 uncontrolled -Hemoglobin A1c on 05/03/2024 is 12.3 -Continue subcu insulin with Levemir 35 units twice daily -Continue enteral insulin at 15 units 3 times daily -Thus far patient's blood sugars are well-controlled without any sliding scale so we will continue to monitor for now -Highly recommend outpatient endocrinology follow-up after discharge -Accu-Cheks as ordered -Cardiac/carb controlled diet Intertrigo candidiasis -Nystatin powder Hyperlipidemia -Continue home pravastatin Hypertension -Hold home lisinopril -hold home Lasix -Hypotensive on presentation but blood pressure is recovering with IV fluids -As needed hydralazine if systolic started to become greater than 160 -Will reinstitute his antihypertensives as able Lower extremity edema -Patient had recent TSH that was unremarkable -Echocardiogram on 05/04/2024 shows an EF of 60% with normal LV function and size--> no pulmonary pressures noted -Hold Lasix -Check bilateral lower extremity Dopplers JOSE -Continue home CPAP History of colon cancer -Stable Depression -Continue home Cymbalta Obesity -BMI 36 -recommend weight loss -Complicates treatment, prognosis, outcomes DVT prophylaxis -Heparin 3 times daily CODE STATUS Full code Charges/Coding Visit Charges Inpatient E&M: 05833 Subs Hosp L3
--- NOTE | 2024-05-14 14:24 | VDLE_ITS ---
Reason For Study: BLE Swelling RIGHT LEFT GSV is normal. GSV is normal. CFV is compressible, spontaneous, phasic, CFV is compressible, spontaneous, phasic, competent and demonstrates normal competent, and demonstrates normal augmentation. augmentation. FV is compressible, spontaneous, phasic, FV is compressible, spontaneous, phasic, competent and demonstrates normal competent and demonstrates normal augmentation. augmentation. POP V is compressible, spontaneous, phasic, POP V is compressible, spontaneous, phasic, competent and demonstrates normal competent and demonstrates normal augmentation. augmentation. T/P Trunk is compressible. T/P Trunk is compressible. Unable to visualize PTV and ZEINA V due to Unable to visualize PTV and ZENIA V due to wraps and open wounds. wraps and open wounds. Procedure This is a venous duplex using B-mode, color flow and spectral Doppler. Exam performed in department. The exam was diagnostic. A preliminary report was called and/or faxed to M/S 3 maintenance technician. VL/Venous Duplex US - Nick Extrem Interpretation Summary No evidence for acute deep venous thrombosis bilateral lower extremities with p atent and compressible bilateral great saphenous veins. Technically limited examination a s bilateral posterior tibial and peroneal veins were unable to be visualized secondary to dressings a nd open wounds. Ordering Physician: Rowena Cm Referring Physician: Taiwo Villarreal M.D. Performed By: Rashad Penn RVT
[2024-05-14 14:56] LABS: Base Excess -9 mmol/L (-2 to +2); Bicarbonate 16.2 mmol/L (22-26); Blood Gas Specimen Type ART; Mode Not entered; O2 Delivery Device Not entered; PO2 77 mmHG (75-100); SITE L Radial; SO2 96 % (95-99); Total Carbon Dioxide 17 mmol/L; pCO2 26.2 mmHg (35-45)
--- NOTE | 2024-05-14 15:13 | CASEMGMT ---
RN CM Readmission Note Previous Admission: 05/03/24 ? 05/08/24 Diagnosis: Cellulitis, ERICA DC Disposition: Home with CCN Current Admission: Admitted 05/13/24 Current Diagnosis: ERICA on CKD stage 2/hyponatremia/hypotension Pt sitting up in bed in no distress, pt sister sitting at bedside. Pt was previously DC with [facility] set up and a follow up appointment at [facility]. Pt states [facility] came out to do initial interview. F/U appointment with [facility] scheduled for later this week. Pt states he has been taking medications as ordered, checking BS and elevating legs. Pt states he was able to mixing picker tender insulin at [facility]. Pt quiet and reserved answering questions. Plan TBD, informed pt will follow therapy and assist patient with DC planning as needed.
[2024-05-14 15:34] VITALS: BP 105/53; PULSE 98; RESP 21; TEMP 36.4; O2SAT 96
--- NOTE | 2024-05-14 16:30 | CON.PCM.ID_ITS ---
Assessment & Plan Assessment/Plan (1) Cellulitis: PLAN: ERICA improved. Recent wound cx with citro, serratia, PsA, MSSA, providencia. Will narrow abx to zosyn. Will follow, thank you HPI Consult Data Date of Consult: 05/14/24 HPI Narrative Reason for Consultation: cellulitis HPI Narrative: ROBERT OVIEDO, is a 58 M who presented 05/13 with worsening BLE redness, pain, ulceration, and drainage. Discharged 05/07 on levaquin and amoxicillin after being admitted for same problem. Did not see much progress. No fever, admitted, started on vanc/pardeep. Feeling about the same. Full ROS performed and neg except as noted above. [facility] Medical History Colon cancer Chronic venous insufficiency Sleep apnea Hypercholesteremia Diabetes mellitus Home Medications ?Medication ?Instructions ?Recorded ?Last Taken ?Type furosemide 40 mg tablet 40 mg PO DAILY EDEMA 05/03/24 Unknown History pravastatin 40 mg tablet 40 mg PO DAILY CHOLESTEROL 05/03/24 Unknown History amoxicillin 500 mg capsule 500 mg PO Q8 #16 caps 05/07/24 Unknown Rx insulin glargine-yfgn 100 unit/mL 35 unit (0.35 mL) subcut BID #0 mL 05/07/24 Unknown Rx (3 mL) subcutaneous pen insulin lispro 100 unit/mL 15 unit (0.15 mL) subcut TIDAC #0 05/07/24 Unknown Rx subcutaneous pen (Humalog KwikPen mL (U-100) Insulin) insulin regular human 100 unit/mL 15 unit (0.15 mL) subcut TID #15 mL 05/07/24 Unknown Rx (3 mL) subcutaneous pen (Novolin R FlexPen) levofloxacin 500 mg tablet 500 mg PO DAILY@0600 #5 tabs 05/07/24 Unknown Rx lisinopril 20 mg tablet 10 mg (1/2 x 20 mg) PO DAILY #30 05/07/24 Unknown Rx tabs lisinopril 20 mg tablet 10 mg (1/2 x 20 mg) PO DAILY #30 05/07/24 Unknown Rx tabs duloxetine 60 mg capsule,delayed 60 mg PO DAILY #1 cap 05/08/24 Unknown Rx release (Cymbalta) Allergy/AdvReac Type Severity Reaction Status Date / Time Tetanus Vaccines and Toxoid AdvReac Nausea Verified 05/13/24 08:48 (Tetanus Vaccines & Toxoid) Family History unable to obtain Surgical History unable to obtain Social History (Updated 05/13/24 @ 14:[address] Rowena Cm DO) household members: spouse housing: house Smoking Status: Never smoker alcohol intake: never substance use type: does not use Physical Exam Const alert and no apparent distress General Appearance: cooperative HEENT normocephalic and head/scalp atraumatic Eyes PERRL and EOMs intact bilaterally Neck supple and No nodes Resp normal air movement and clear to auscultation bilaterally Cardio regular rate and regular rhythm GI soft to palpation, non-tender and non-distended Extremity General Extremity: edema Skin Skin Narrative: reviewed photo Neuro CN's II-XII intact bilaterally Lab / Micro Data Attestation: I reviewed the patient's lab results. 05/14/24 06:32 05/14/24 06:32 Labs: Laboratory Results - last 24 hr 05/13/24 18:51: POC Glucose 158 H 05/13/24 21:45: POC Glucose 115 H 05/14/24 06:32: WBC 8.5, RBC 3.24 L, Hgb 9.4 L, Hct 29.5 L, MCV 91.0 D, MCH 29.0, MCHC 31.9 L, RDW Std Deviation 51.0 H, RDW Coeff of Henri 15.4 H, Plt Count , MPV 9.3, Immature Gran % (Auto) 1.100 H, Neut % (Auto) 81.3 H, Lymph % (Auto) 9.3 L, [place] % (Auto) 7.7, Eos % (Auto) 0.2, Baso % (Auto) 0.4, Absolute Neuts (auto) 6.9, Absolute Lymphs (auto) 0.79 L, Nucleated RBC % 0, Platelet Estimate ADEQUATE, Sodium 138, Potassium 3.4 L, Chloride 114 H, Carbon Dioxide 16.0 L, Anion Gap 8, BUN 43 H, Creatinine 2.16 H, Estim Creat Clear Calc 47.31, Est GFR (MDRD) Af Amer 40 L, Est GFR (MDRD) Non-Af 33 L, BUN/Creatinine Ratio 19.9, G lucose 154 H, Calcium 8.1 L, Phosphorus 3.8, Magnesium 1.8, Total Bilirubin 0.60, AST 20, ALT 16, Alkaline Phosphatase 106, Total Protein 5.7 L, Albumin 1.6 L, Globulin 4.1, Albumin/Globulin Ratio 0.4 L 05/14/24 06:36: POC Glucose 141 H 05/14/24 11:28: POC Glucose 147 H ABG Data ABG results: ABG 05/14/24 14:52 Specimen Type ART Sample Site L Radial pH 7.40 Bicarbonate Actual 16.2 L Total CO2 17 Base Excess -9 L O2 Saturation 96 O2 % 21.0 ABG pCO2 26.2 L ABG pO2 77 O2 Delivery Device Not entered Vent Mode Not entered
[2024-05-14] MEDS: Juven (unflavored) Packet 1 PACKET PO (17:19)
[2024-05-14 19:59] VITALS: BP 109/51; PULSE 99; RESP 18; TEMP 36.9; O2SAT 95
[2024-05-14 20:01] VITALS: O2SAT 95
[2024-05-14] MEDS: Piperacil/Tazobactam 3.375 GM in 0.9% Normal Saline (50mL MB+) 50 ML IV (21:36)
[2024-05-14 22:32] LABS: Bedside Glucose 138 mg/dL (74-106)
[2024-05-14 22:32] LABS: Bedside Glucose 77 mg/dL (74-106)
[2024-05-15] VITALS (7 sets, daily range): BP systolic 108–128; BP diastolic 60–76; PULSE 78–101; RESP 16–20; TEMP 36.7–37.1; O2SAT 95–98; BMI 37.3
[2024-05-15] MEDS: Heparin Injection (Vial) 5,000 UNIT/ML VIAL 5000 UNIT SC ×3 (05:00→22:16)
[2024-05-15] MEDS: Menthol/Lanolin/Calamine/Znox 113 GM Tube 1 APPLIC TOPICAL ×2 (05:00→22:17)
[2024-05-15] MEDS: Lactated Ringers 1,000 ML 100 ML IV (05:00)
[2024-05-15] MEDS: Piperacil/Tazobactam 3.375 GM in 0.9% Normal Saline (50mL MB+) 50 ML IV ×3 (05:00→22:17)
[2024-05-15 07:11] LABS: Bedside Glucose 118 mg/dL (74-106)
[2024-05-15] MEDS: Juven (unflavored) Packet 1 PACKET PO ×2 (08:44→16:17)
[2024-05-15] MEDS: DULoxetine Hcl 60 MG Capsule PO (08:45)
[2024-05-15] MEDS: Nystatin Powder 15gm Bottle 1 APPLIC TOPICAL ×2 (08:45→22:17)
[2024-05-15] MEDS: Insulin Glargine-YFGN 100 UNIT/ML Pen 35 UNIT SC ×2 (08:46→23:01)
[2024-05-15] MEDS: Insulin Lispro 100 UNIT/ML INSULN.PEN 15 UNIT SC (08:46)
[2024-05-15 08:49] LABS: Absolute Lymphocyte Count 0.79 X10^3/uL (0.83-4.51); Absolute Neutrophil Count 4.5 X10^3/uL (2.0-7.7); Basophil# 0.02 X10^3/uL; Basophil% 0.3 % (0-1); Eosinophil# 0.15 X10^3/uL; Eosinophils% 2.6 % (0-5); Hemoglobin 9.4 g/dL (13.0-16.5); Lymphocyte # 0.79 X10^3/ul (0.83-4.51); Lymphocyte % 13.6 % (19-41); Mean Corp Hgb Conc 32.4 g/dL (32-36); Mean Corpuscular Hgb 28.2 pg (27.0-32.0); Mean Corpuscular Volume 87.1 fL (80-94); Mean Platelet Vol. 8.7 fl (6.2-12.0); Monocyte# 0.32 X10^3/uL; Monocyte% 5.5 % (0-10); NRBC Flagged by Analyzer 0 % (0-5); Neutrophil # 4.48 X10^3/uL (2.7-7.7); Neutrophil % 76.8 % (47-70); Platelet Count 186 K/mm3 (150-450); RBC Distribution Width CV 15.7 % (11.6-14.6); RBC Distribution Width SD 49.7 fl (35.1-43.9); Red Blood Count 3.33 M/mm3 (4.6-6.2); White Blood Count 5.8 K/mm3 (4.4-11.0)
[2024-05-15 09:06] LABS: Anion Gap 6 (5-15); BUN 28 mg/dL (7-18); BUN/Creat Ratio 23.1 RATIO (10-20); Calcium,Total 8.5 mg/dL (8.5-10.1); Chloride 113 mmol/L (98-107); Creatinine, Serum 1.21 mg/dL (0.70-1.30); EST Glomerular Filtration Rate 65 mL/min (>60); Est Glom Filt Rate - Afr Amer 78 mL/min (>60); Estimated Creatinine Clearance 84.46 ml/min; Glucose 123 mg/dL (74-106); Potassium 3.4 mmol/L (3.5-5.1); Sodium Level 140 mmol/L (136-145)
--- NOTE | 2024-05-15 10:09 | CASEMGMT ---
Social Work SW met w/pt, pt's sister is here also. Pt more alert today. SW spoke w/pt about the possibility of going somewhere for rehab. Pt is open to the idea, and is willing to speak w/Breanna again about applying for Medicaid. SADIA sent an email to Breanna asking if she can see pt. EMMANUEL Ervin
[2024-05-15] MEDS: Potassium Chloride Oral Tablet 20 MEQ 40 MEQ PO (10:51)
[2024-05-15] MEDS: 0.9% Saline Lock 10 ML Syringe IV ×2 (10:51→14:47)
[2024-05-15 12:04] LABS: Base Excess -5 mmol/L (-2 to +2); Blood Gas Specimen Type ART; Mode Not entered; O2 Delivery Device Not entered; PO2 71 mmHG (75-100); SITE R Radial; SO2 95 % (95-99); Total Carbon Dioxide 20 mmol/L; pCO2 27.7 mmHg (35-45); pH 7.44 (7.35-7.45)
--- NOTE | 2024-05-15 13:29 | CASEMGMT ---
Social Work SW spoke w/physician, who states pt does need SNF. SW spoke w/pt, pt's sister Billie is now present(Yamel was here earlier). SW spoke w/him about going somewhere for rehab, pt is agreeable. Pt did meet w/Breanna earlier from [facility] and completed a Medicaid application. SW provided to pt a list of custodial facilities that will take pending Medicaid, in pt's preferred geographic area, and complete w/quality and resource use data. SW asked pt to review list, and will have SW return tomorrow for choices, and referrals will be sent at that time. Pt states understanding. SW will continue to follow. EMMANUEL Ervin
--- NOTE | 2024-05-15 15:13 | CASEMGMT ---
Social Work SW spoke w/pt's sister, and pt in room. They would like referrals sent to [facility] and [facility]. SW explained will send referrals, will let them know. SW will continue to follow. Breanna to let SW know when we have a pending Medicaid number. D/C community health planning director Deandra will send the initial referrals. EMMANUEL Ervin
--- NOTE | 2024-05-15 15:18 | PCM.PN.ID ---
Physical Exam Narrative Feeling better, no fever, legs less sore Const alert and no apparent distress General Appearance: cooperative Resp normal air movement and clear to auscultation bilaterally Cardio regular rate and regular rhythm GI soft to palpation, non-tender and non-distended Skin Skin Narrative: BLE wrapped ID ID: Route of nutrition/ use of supplements: [] Nutritional Intake: [] IV Site: [] Watson Catheter: [] Assessment & Plan Assessment/Plan (1) Cellulitis: PLAN: ERICA resolved. Recent wound cx with citro, serratia, PsA, MSSA, providencia. Cont zosyn. Plan on continuing zosyn until 05/22/24. Will follow
--- NOTE | 2024-05-15 15:37 | CASEMGMT ---
Addendum entered by Deandra Estrada 05/16/24 09:01: [facility] declined d/t not accepting [facility] pending at this time. SW updated. Deandra Estrada DC Planning Asst. Addendum entered by Deandra Estrada 05/16/24 08:57: [facility] accepted. SW updated. Deandra Estrada DC Planning Asst. Original Note: Discharge Planning Referral sent to [facility] and [facility]. Deandra Estrada DC Planning Asst.
[2024-05-15 16:18] LABS: Bedside Glucose 106 mg/dL (74-106)
[2024-05-15 16:31] LABS: Bedside Glucose 85 mg/dL (74-106)
--- NOTE | 2024-05-15 16:51 | PCM.PN.HOSP ---
Reason for Visit Reason for Visit: Weakness/confusion Subjective Subjective Patient's mentation is back to normal. He appears comfortable. Denies any complaints at this time. States he is agreeable to go to nursing facility for rehab and assistance with his wounds on his legs as well as control of his blood sugars. Patient and family requesting diabetic education which will be provided. No complaints at this time. Objective Data Objective Data Vital Signs: Vital Signs Temp Pulse Resp BP Pulse Ox O2 Del Method 98.8 F 100 20 H 114/66 96 Room Air 05/15/24 14:44 05/15/24 14:44 05/15/24 14:44 05/15/24 14:44 05/15/24 14:44 05/15/24 14:44 Oxygen Delivery Method Room Air Weight: 121.109 kg Body Mass Index (BMI) 37.3 Intake & Output: Intake and Output for Last 24 Hours 05/13/24 05/14/24 05/15/24 23:59 23:59 23:59 Intake Total 4145 / 4911 4726.5 / 4926.5 2240 / 2240 Output Total 300 / 300 Balance 4145 / 4911 4726.5 / 4926.5 1940 / 1940 Lab / Micro Data 05/15/24 08:34 05/15/24 08:34 Labs: Laboratory Results - last 24 hr 05/14/24 21:35: POC Glucose 77 05/14/24 22:15: POC Glucose 138 H 05/15/24 06:30: POC Glucose 118 H 05/15/24 08:34: WBC 5.8, RBC 3.33 L, Hgb 9.4 L, Hct 29.0 L, MCV 87.1, MCH 28.2, MCHC 32.4, RDW Std Deviation 49.7 H, RDW Coeff of Henri 15.7 H, Plt Count 186, MPV 8.7, Immature Gran % (Auto) 1.200 H, Neut % (Auto) 76.8 H, Lymph % (Auto) 13.6 L, [place] % (Auto) 5.5, Eos % (Auto) 2.6, Baso % (Auto) 0.3, Absolute Neuts (auto) 4.5, Absolute Lymphs (auto) 0.79 L, Nucleated RBC % 0, Sodium 140, Potassium 3.4 L, Chloride 113 H, Carbon Dioxide 21.0, Anion Gap 6, BUN 28 H, Creatinine 1.21, Estim Creat Clear Calc 84.46, Est GFR (MDRD) Af Amer 78, Est GFR (MDRD) Non-Af 65, BUN/Creatinine Ratio 23.1 H, Glucose 123 H, Calcium 8.5 05/15/24 11:37: POC Glucose 106 05/15/24 16:05: POC Glucose 85 Micro: Microbiology 05/13/24 14:40 Blood Culture (Wb) - Anticubital Right Blood Culture - Preliminary No growth in 48 hours. 05/13/24 14:30 Blood Culture (Wb) - Left Forearm Blood Culture - Preliminary No growth in 48 hours. ABG Data ABG results: ABG 05/15/24 12:01 Specimen Type ART Sample Site R Radial pH 7.44 Bicarbonate Actual 19.0 L Total CO2 20 Base Excess -5 L O2 Saturation 95 O2 % 21.0 ABG pCO2 27.7 L ABG pO2 71 L O2 Delivery Device Not entered Vent Mode Not entered Radiography Diagnostic Testing: Radiology Impression Venous Doppler Study 05/14/24 14:24 Interpretation Summary No evidence for acute deep venous thrombosis bilateral lower extremities with patent and compressible bilateral great saphenous veins. Technically limited examination as bilateral posterior tibial and peroneal veins were unable to be visualized secondary to dressings and open wounds. Ordering Physician: Rowena Cm Referring Physician: Taiwo Villarreal M.D. Performed By: Rashad Penn RVT Physical Exam Const alert, oriented x3 and no apparent distress; Negative for average body habitus or healthy appearing Constitutional Narrative: Obese, upper middle-aged, white male who appears much older than stated age, sitting up in bed watching television and family at bedside, appears comfortable and nontoxic HEENT normocephalic, head/scalp atraumatic, hearing grossly normal bilaterally and moist oral mucous membranes HEENT Narrative: Dentition is poor, Mallampati is 3, no thrush, mucous membranes are no longer parched Eyes Negative for conjunctivae normal Resp normal respiratory effort, no retractions, no use of accessory muscles and clear to auscultation bilaterally Auscultation: Negative for rales, rhonchi or wheezes Cardio regular rate, regular rhythm, S1 normal heart sound, S2 normal heart sound, no murmurs, no rub, no gallops and no clicks GI normal to inspection, nondistended, normoactive bowel sounds, soft to palpation and non-tender GI Narrative: Ventral hernia present, bowel sounds are good Palpation: hernia Extremity Extremity Narrative: Lower extremity edema bilaterally, dressings now in place, no cyanosis or clubbing Skin No no rashes or lesions noted, No no wounds and No skin turgor normal Neuro oriented x3, moves all extremities and no focal motor deficits Neuro Narrative: Generalized weakness noted Speech: speech normal Psych affect normal Psych Narrative: Very pleasant, interacts appropriately Assessment & Plan Assessment/Plan (1) Cellulitis: (2) Hypotension: (3) Syncope: (4) Acute kidney injury: (5) Metabolic acidosis: (6) Hyponatremia: (7) Dehydration: (8) Leukocytosis: (9) Candidiasis, intertrigo: (10) Toxic metabolic encephalopathy: PLAN: Plan Acute hypotension with syncope secondary to severe dehydration -Resolved ERICA on CKD stage II secondary to dehydration -ERICA resolved -Baseline serum creatinine runs between 1 and 1.3 -Serum creatinine on admission was 3.95--> now down to 2.16 today -Continue to hold home Lasix -Continue to hold home lisinopril -Discontinue IV fluids -Repeat BMP in a.m. Metabolic acidosis -Resolved Hypokalemia -40 mill equivalents p.o. potassium given -Repeat in a.m. -If remains low may need to check magnesium level Toxic/metabolic encephalopathy -Resolved Bilateral lower extremity cellulitis -Polymicrobial organisms noted -Zosyn per infectious disease -Plan is to continue Zosyn until 05/22/2024--> PICC ordered -ID following-appreciate input DM-2 uncontrolled -Hemoglobin A1c on 05/03/2024 is 12.3 -Continue subcu insulin with Levemir 35 units twice daily--> fasting blood sugar today 123 -Continue to monitor for adjustments -Decrease enteral insulin to 7 units 3 times daily -Continue to monitor for adjustments -Highly recommend outpatient endocrinology follow-up after discharge -Accu-Cheks as ordered -Cardiac/carb controlled diet -Diabetic education consultation ordered Intertrigo candidiasis -Nystatin powder Hyperlipidemia -Continue home pravastatin Hypertension -Blood pressures are recovering -Hold home lisinopril -hold home Lasix -As needed hydralazine if systolic started to become greater than 160 -Will reinstitute his antihypertensives as able Lower extremity edema -Patient had recent TSH that was unremarkable -Echocardiogram on 05/04/2024 shows an EF of 60% with normal LV function and size--> no pulmonary pressures noted -Hold Lasix -Dopplers were unremarkable JOSE -Continue home CPAP History of colon cancer -Stable Depression -Continue home Cymbalta Obesity -BMI 37.2 -recommend weight loss -Complicates treatment, prognosis, outcomes DVT prophylaxis -Transition to Lovenox daily and discontinue subcu heparin with normalization of renal function CODE STATUS Full code Disposition: -Patient is now medically stable for discharge. Will require IV Zosyn through 05/22/2024 so will order PICC line. Once accepted to facility okay to start pre-CERT Charges/Coding Visit Charges Inpatient E&M: 35937 Subs Hosp L2
[2024-05-15] MEDS: Acetaminophen 325 MG Tablet 650 MG PO (20:55)
[2024-05-15] MEDS: oxyCODONE 5 MG Tablet PO (23:01)
[2024-05-15 23:09] LABS: Bedside Glucose 77 mg/dL (74-106)
[2024-05-16 04:04] VITALS: BP 105/63; PULSE 84; RESP 18; TEMP 36.8; O2SAT 95
[2024-05-16 05:39] VITALS: BMI 37.6
[2024-05-16] MEDS: Heparin Injection (Vial) 5,000 UNIT/ML VIAL 5000 UNIT SC ×2 (05:43→13:31)
[2024-05-16] MEDS: Piperacil/Tazobactam 3.375 GM in 0.9% Normal Saline (50mL MB+) 50 ML IV ×2 (05:43→13:31)
[2024-05-16] MEDS: Menthol/Lanolin/Calamine/Znox 113 GM Tube 1 APPLIC TOPICAL ×2 (05:45→11:32)
[2024-05-16 06:05] LABS: Bedside Glucose 70 mg/dL (74-106)
[2024-05-16 07:43] VITALS: BP 130/53; PULSE 89; RESP 18; TEMP 36.8; O2SAT 96
[2024-05-16] MEDS: Juven (unflavored) Packet 1 PACKET PO ×2 (07:46→16:51)
[2024-05-16] MEDS: DULoxetine Hcl 60 MG Capsule PO (07:46)
[2024-05-16] MEDS: Nystatin Powder 15gm Bottle 1 APPLIC TOPICAL (07:46)
[2024-05-16 07:51] LABS: Absolute Lymphocyte Count 0.97 X10^3/uL (0.83-4.51); Absolute Neutrophil Count 4.3 X10^3/uL (2.0-7.7); Basophil# 0.02 X10^3/uL; Basophil% 0.3 % (0-1); Eosinophil# 0.22 X10^3/uL; Eosinophils% 3.7 % (0-5); Hemoglobin 8.8 g/dL (13.0-16.5); Lymphocyte # 0.97 X10^3/ul (0.83-4.51); Lymphocyte % 16.2 % (19-41); Mean Corp Hgb Conc 32.6 g/dL (32-36); Mean Corpuscular Hgb 28.4 pg (27.0-32.0); Mean Corpuscular Volume 87.1 fL (80-94); Mean Platelet Vol. 8.7 fl (6.2-12.0); Monocyte# 0.37 X10^3/uL; Monocyte% 6.2 % (0-10); NRBC Flagged by Analyzer 0 % (0-5); Neutrophil # 4.33 X10^3/uL (2.7-7.7); Neutrophil % 72.4 % (47-70); Platelet Count 180 K/mm3 (150-450); RBC Distribution Width CV 15.7 % (11.6-14.6); RBC Distribution Width SD 49.7 fl (35.1-43.9)
--- NOTE | 2024-05-16 07:51 | PN.HOSP_ITS ---
Reason for Visit Reason for Visit: Diagnoses Candidiasis of skin and nail (05/13/24) Elevated white blood cell count, unspecified (05/13/24) Dehydration (05/13/24) Hypo-osmolality and hyponatremia (05/13/24) Acidosis, unspecified (05/13/24) Other toxic encephalopathy (05/13/24) Hypotension, unspecified (05/13/24) Cellulitis, unspecified (05/13/24) Acute kidney failure, unspecified (05/13/24) Syncope and collapse (05/13/24) Subjective Subjective Feels well. No issues. Objective Data Objective Data Vital Signs: Vital Signs Temp Pulse Resp BP Pulse Ox O2 Del Method 36.8 C 89 18 130/53 H 96 Room Air 05/16/24 07:43 05/16/24 07:43 05/16/24 07:43 05/16/24 07:43 05/16/24 07:43 05/16/24 07:43 Oxygen Delivery Method Room Air Weight: 122 kg Body Mass Index (BMI) 37.6 Intake & Output: Intake and Output for Last 24 Hours 05/14/24 05/15/24 05/16/24 23:59 23:59 23:59 Intake Total 4726.5 / 4926.5 2290 / 2290 50 / 50 Output Total 550 / 550 300 / 300 Balance 4726.5 / 4926.5 1740 / 1740 -250 / -250 Lab / Micro Data 05/16/24 07:20 05/16/24 07:20 Labs: Laboratory Results - last 24 hr 05/15/24 08:34: WBC 5.8, RBC 3.33 L, Hgb 9.4 L, Hct 29.0 L, MCV 87.1, MCH 28.2, MCHC 32.4, RDW Std Deviation 49.7 H, RDW Coeff of Henri 15.7 H, Plt Count 186, MPV 8.7, Immature Gran % (Auto) 1.200 H, Neut % (Auto) 76.8 H, Lymph % (Auto) 13.6 L , [place] % (Auto) 5.5, Eos % (Auto) 2.6, Baso % (Auto) 0.3, Absolute Neuts (auto) 4.5, Absolute Lymphs (auto) 0.79 L, Nucleated RBC % 0, Sodium 140, Potassium 3.4 L, Chloride 113 H, Carbon Dioxide 21.0, Anion Gap 6, BUN 28 H, Creatinine 1.21, Estim Creat Clear Calc 84.46, Est GFR (MDRD) Af Amer 78, Est GFR (MDRD) Non-Af 65, BUN/Creatinine Ratio 23.1 H, Glucose 123 H, Calcium 8.5 05/15/24 11:37: POC Glucose 106 05/15/24 16:05: POC Glucose 85 05/15/24 22:34: POC Glucose 77 05/16/24 05:41: POC Glucose 70 L 05/16/24 07:20: WBC 6.0, RBC 3.10 L, Hgb 8.8 L, Hct 27.0 L, MCV 87.1, MCH 28.4, MCHC 32.6, RDW Std Deviation 49.7 H, RDW Coeff of Henri 15.7 H, Plt Count 180, MPV 8.7, Immature Gran % (Auto) 1.200 H, Neut % (Auto) 72.4 H, Lymph % (Auto) 16.2 L , [place] % (Auto) 6.2, Eos % (Auto) 3.7, Baso % (Auto) 0.3, Absolute Neuts (auto) 4.3, Absolute Lymphs (auto) 0.97, Nucleated RBC % 0 Micro: Microbiology 05/13/24 14:40 Blood Culture (Wb) - Anticubital Right Blood Culture - Preliminary No growth in 48 hours. 05/13/24 14:30 Blood Culture (Wb) - Left Forearm Blood Culture - Preliminary No growth in 48 hours. ABG Data ABG results: ABG 05/15/24 12:01 Specimen Type ART Sample Site R Radial pH 7.44 Bicarbonate Actual 19.0 L Total CO2 20 Base Excess -5 L O2 Saturation 95 O2 % 21.0 ABG pCO2 27.7 L ABG pO2 71 L O2 Delivery Device Not entered Vent Mode Not entered Physical Exam Const alert and no apparent distress HEENT head/scalp atraumatic and moist oral mucous membranes Resp normal respiratory effort and no retractions Neuro Sensorium / Orientation: awake Assessment & Plan Assessment/Plan (1) Cellulitis: (2) Hypotension: (3) Syncope: (4) Acute kidney injury: (5) Metabolic acidosis: (6) Hyponatremia: (7) Dehydration: (8) Leukocytosis: (9) Candidiasis, intertrigo: (10) Toxic metabolic encephalopathy: PLAN: Plan Acute hypotension with syncope secondary to severe dehydration * 2/2 poor PO intake * Resolved ERICA on CKD stage II * secondary to dehydration * resolved Hypokalemia * 40 mill equivalents p.o. potassium given * Repeat in a.m. Metabolic encephalopathy * resolved 2/2 dehydration Bilateral lower extremity cellulitis * Polymicrobial organisms noted * pip/tazo per infectious disease through 05/22. PICC ordered DM-2 uncontrolled * Hemoglobin A1c on 05/03/2024 is 12.3 * Continue subcu insulin with Levemir 35 units twice daily * Highly recommend outpatient endocrinology follow-up after discharge Chronic conditions: * Hyperlipidemia-Continue home pravastatin * Hypertension-home meds held. * Lower extremity edema-Patient had recent TSH that was unremarkable- Echocardiogram on 05/04/2024 shows an EF of 60% with normal LV function and size--> no pulmonary pressures noted-Hold Lasix-Dopplers were unremarkable * JOSE-Continue home CPAP * Depression-Continue home Cymbalta * Obesity-BMI 37.2-recommend weight loss-Complicates treatment, prognosis, outcomes DVT prophylaxis: SQ heparin CODE STATUS Full code
[2024-05-16 08:18] LABS: Anion Gap 4 (5-15); BUN 24 mg/dL (7-18); BUN/Creat Ratio 23.1 RATIO (10-20); Calcium,Total 8.2 mg/dL (8.5-10.1); Chloride 112 mmol/L (98-107); Creatinine, Serum 1.04 mg/dL (0.70-1.30); EST Glomerular Filtration Rate 77 mL/min (>60); Est Glom Filt Rate - Afr Amer 93 mL/min (>60); Estimated Creatinine Clearance 100.41 ml/min; Glucose 79 mg/dL (74-106); Potassium 3.3 mmol/L (3.5-5.1); Sodium Level 139 mmol/L (136-145)
[2024-05-16 08:19] VITALS: O2SAT 94
[2024-05-16 09:20] LABS: Bedside Glucose 71 mg/dL (74-106)
[2024-05-16 09:20] LABS: Bedside Glucose 106 mg/dL (74-106)
[2024-05-16] MEDS: oxyCODONE 5 MG Tablet PO ×2 (10:46→16:53)
[2024-05-16] MEDS: 0.9% Saline Lock 10 ML Syringe IV ×2 (10:46→16:49)
[2024-05-16] MEDS: Acetaminophen 325 MG Tablet 650 MG PO ×2 (10:46→16:53)
--- NOTE | 2024-05-16 11:31 | CASEMGMT ---
Social Work [facility] able [facility] accept pt, [facility] is not. SW met with pt and informed of this and pt is agreeable to dc to [facility]. Message sent to Breanna at [facility] informing of plan for [facility] and request that Medicaid pending number be provided when it is obtained. Phone call to pt's and updated on dc plan. She is agreeable to dc to [facility]. A level of care will need obtained prior to admission to SNF. This cannot be requested until pending number obtained. [facility] will continue to follow. CEZAR Esposito
[2024-05-16 11:43] LABS: Bedside Glucose 180 mg/dL (74-106)
--- NOTE | 2024-05-16 11:56 | CASEMGMT ---
Social Work SW met with pt and discussed advance directives. Pt is uncertain if he has completed documents. Phone call to pt's who is also uncertain but states if pt has them, they are at [facility] Law office. Pt and gave permission for [facility] Phone call to [facility] and documents requested. [facility] faxed copy of pt's Living Will and Health Care POA naming his Jarrod Pepe. Advance Directives placed on pt chart. CEZAR Esposito
[2024-05-16] MEDS: Insulin Lispro 100 UNIT/ML INSULN.PEN 7 UNIT SC ×2 (12:07→16:49)
[2024-05-16 13:37] VITALS: BP 104/56; PULSE 89; RESP 18; TEMP 36.7; O2SAT 96
--- NOTE | 2024-05-16 13:40 | TREXTCAR_ITS ---
Diet Diet Order/Speech Therapy: 05/13/24 17:30 Diet: Cardiac - Heart Healthy Food consistency:: Regular Liquid Consistency:: Regular/Thin Dietary Modifications:: Consistent Carbohydrate Type of Dietary Supplement:: Glucerna Shake Is pt able to select menu?: Yes Diet Comments: glucerna shake on each tray-prefer vanilla or chocolate Wound(s) rt second toe: Wound Type: Abrasion bilateral lower legs: Wound Type: Stasis Ulcer Dressing Change: Adaptic/hydrogel Therapies Physical Therapy: Eval and Treat Occupational Therapy: Eval and Treat Problem/Diagnosis (1) Cellulitis: Status: Acute Code(s): L03.90 - Cellulitis, unspecified (2) Hypotension: Status: Acute Code(s): I95.9 - Hypotension, unspecified (3) Syncope: Status: Acute Code(s): R55 - Syncope and collapse (4) Acute kidney injury: Status: Acute Code(s): N17.9 - Acute kidney failure, unspecified (5) Metabolic acidosis: Status: Acute Code(s): E87.20 - Acidosis, unspecified (6) Hyponatremia: Status: Acute Code(s): E87.1 - Hypo-osmolality and hyponatremia (7) Dehydration: Status: Acute Code(s): E86.0 - Dehydration (8) Leukocytosis: Status: Acute Code(s): D72.829 - Elevated white blood cell count, unspecified (9) Candidiasis, intertrigo: Status: Acute Code(s): B37.2 - Candidiasis of skin and nail (10) Toxic metabolic encephalopathy: Status: Acute Code(s): G92.8 - Other toxic encephalopathy Plan Acute hypotension with syncope secondary to severe dehydration * 2/2 poor PO intake * Resolved ERICA on CKD stage II * secondary to dehydration * resolved Hypokalemia * 40 mill equivalents p.o. potassium given * Repeat in a.m. Metabolic encephalopathy * resolved 2/2 dehydration Bilateral lower extremity cellulitis * Polymicrobial organisms noted * pip/tazo per infectious disease through 05/22. PICC ordered DM-2 uncontrolled * Hemoglobin A1c on 05/03/2024 is 12.3 * Continue subcu insulin with Levemir 35 units twice daily * Highly recommend outpatient endocrinology follow-up after discharge Chronic conditions: * Hyperlipidemia-Continue home pravastatin * Hypertension-home meds held. * Lower extremity edema-Patient had recent TSH that was unremarkable- Echocardiogram on 05/04/2024 shows an EF of 60% with normal LV function and size--> no pulmonary pressures noted-Hold Lasix-Dopplers were unremarkable * JOSE-Continue home CPAP * Depression-Continue home Cymbalta * Obesity-BMI 37.2-recommend weight loss-Complicates treatment, prognosis, outcomes DVT prophylaxis: SQ heparin CODE STATUS Full code Allergies/Procedures Done in Hospital Allergies Tetanus Vaccines and Toxoid (Tetanus Vaccines & Toxoid) Adverse Reaction (Verified 05/13/24 08:48) Nausea Procedures: PICC line placement (remove when antibiotics are completed. ) Type of Care/Length of Stay Estimated LOS: Convalescent Care Less Than 30 days Type of Care Needed: Skilled Rehab Potential: Fair Prognosis: Fair Additional Orders/Day of Discharge Day of Discharge: 05/16/24 Dietary and Speech Recommendations Dietitian Recommendations/Changes: Will change nepro ONS to glucerna shake to better meet est nutritional needs Continue Cardiac / Consistent CHO diet as ordered Will order Mauricio bid to help w/ wound healing. Discharge Plan Admission Admit Date/Time: 05/13/24 15:29 Primary Reason for Your Visit: cellulitis. ERICA Attending Provider: Morales Jacobsen Primary Care Provider: Taiwo Villarreal Consulting Providers: Jez Harmon; Rowena Cm Discharge Orders/Prescriptions Prescriptions: New Zosyn in dextrose (iso-osm) 3.375 gram/50 mL piggyback 3.375 g IV Q8H 7 Days Rx Instructions: stop date 05/22/24. Dx: pseudomonas infection. nystatin [Nyamyc] 100,000 unit/gram Powder 1 applic topical BID Qty: 0 0RF Protocol: *Topical Application Instructions APPLICATION INSTRUCTIONS: under abdominal flap insulin lispro [Humalog KwikPen Insulin] 100 unit/mL Insulin Pen 7 unit subcut TIDAC Qty: 0 0RF menthol-zinc oxide [Calmoseptine] 0.44-20.6 % Ointment 1 applic topical TID Qty: 0 0RF Protocol: *Topical Application Instructions APPLICATION INSTRUCTIONS: to diaper area Mauricio (with collagen) 7-7-1.5 gram Powder In Packet 1 packet PO BIDCM Qty: 0 0RF acetaminophen 325 mg Tablet 650 mg PO Q6H PRN PRN (Reason: Pain 1-10 Or Fever >100.7) Qty: 0 0RF sennosides-docusate sodium [Stool Softener-Stimulant Laxat] 8.6-50 mg Tablet 2 tab PO BID PRN PRN (Reason: Constipation) Qty: 0 0RF Continued furosemide 40 mg tablet 40 mg PO DAILY pravastatin 40 mg tablet 40 mg PO DAILY insulin glargine-yfgn 100 unit/mL (3 mL) Insulin Pen 35 unit subcut BID Qty: 0 0RF duloxetine [Cymbalta] 60 mg capsule,delayed release(DR/EC) 60 mg PO DAILY Qty: 1 0RF Discontinued amoxicillin 500 mg Capsule 500 mg PO Q8 Qty: 16 0RF Rx Instructions: Start on 05/07/2024 levofloxacin 500 mg Tablet 500 mg PO DAILY@0600 Qty: 5 0RF Rx Instructions: Started on 05/08/2024 insulin lispro [Humalog KwikPen Insulin] 100 unit/mL Insulin Pen 15 unit subcut TIDAC Qty: 0 0RF lisinopril 20 mg Tablet 10 mg PO DAILY Qty: 30 0RF Novolin R FlexPen 100 unit/mL (3 mL) insulin pen 15 unit subcut TID Qty: 15 0RF lisinopril 20 mg tablet 10 mg PO DAILY Qty: 30 0RF Rx Instructions: One half tab daily Referrals / Follow Up: Amandeep Rothman MD [Non-Staff] - Taiwo Villarreal MD [Primary Care Provider] - Disposition Disposition (needs filled in before D/C Order can be placed): Assisted Facility
--- NOTE | 2024-05-16 13:46 | DS.PCM_ITS ---
Providers Date of Admission: 05/13/24 Primary Care Physician: Dr. Taiwo Villarreal MD Consultations 05/13/24 17:30 Consult: Infectious Disease Routine Consulting Provider: Jez Harmon Reason for Consult: polymicrobial cellulitis EMERGENT Consult: No MD Notified: Yes Date Notified: 05/14/24 Time Notified: 06:05 Method of Notification: Text Consult: Onc/Wound/catalyst operator Routine Comment: Reason For Visit: ERICA ON CKD STAGE 2/HYPONATREMIA/HYPOTENSION Diagnosis Discharge Diagnosis (1) Cellulitis: Status: Acute Code(s): L03.90 - Cellulitis, unspecified (2) Hypotension: Status: Acute Code(s): I95.9 - Hypotension, unspecified (3) Syncope: Status: Acute Code(s): R55 - Syncope and collapse (4) Acute kidney injury: Status: Acute Code(s): N17.9 - Acute kidney failure, unspecified (5) Metabolic acidosis: Status: Acute Code(s): E87.20 - Acidosis, unspecified (6) Hyponatremia: Status: Acute Code(s): E87.1 - Hypo-osmolality and hyponatremia (7) Dehydration: Status: Acute Code(s): E86.0 - Dehydration (8) Leukocytosis: Status: Acute Code(s): D72.829 - Elevated white blood cell count, unspecified (9) Candidiasis, intertrigo: Status: Acute Code(s): B37.2 - Candidiasis of skin and nail (10) Toxic metabolic encephalopathy: Status: Acute Code(s): G92.8 - Other toxic encephalopathy Plan Acute hypotension with syncope secondary to severe dehydration * 2/2 poor PO intake * Resolved ERICA on CKD stage II * secondary to dehydration * resolved Hypokalemia * 40 mill equivalents p.o. potassium given * Repeat in a.m. Metabolic encephalopathy * resolved 2/2 dehydration Bilateral lower extremity cellulitis * Polymicrobial organisms noted * pip/tazo per infectious disease through 05/22. PICC ordered DM-2 uncontrolled * Hemoglobin A1c on 05/03/2024 is 12.3 * Continue subcu insulin with Levemir 35 units twice daily * Highly recommend outpatient endocrinology follow-up after discharge Chronic conditions: * Hyperlipidemia-Continue home pravastatin * Hypertension-home meds held. * Lower extremity edema-Patient had recent TSH that was unremarkable- Echocardiogram on 05/04/2024 shows an EF of 60% with normal LV function and size--> no pulmonary pressures noted-Hold Lasix-Dopplers were unremarkable * JOSE-Continue home CPAP * Depression-Continue home Cymbalta * Obesity-BMI 37.2-recommend weight loss-Complicates treatment, prognosis, outcomes DVT prophylaxis: SQ heparin CODE STATUS Full code Medications at Discharge Home Medications furosemide 40 mg tablet 40 mg PO DAILY EDEMA 05/03/24 pravastatin 40 mg tablet 40 mg PO DAILY CHOLESTEROL 05/03/24 insulin glargine-yfgn 100 unit/mL (3 mL) subcutaneous pen 35 unit (0.35 mL) subcut BID #0 mL 05/07/24 duloxetine 60 mg capsule,delayed release (Cymbalta) 60 mg PO DAILY #1 cap 05/08/24 acetaminophen 325 mg tablet 650 mg (2 x 325 mg) PO Q6H PRN PRN Pain 1-10 Or Fever >100.7 #0 tabs 05/16/24 arginine 7 gram-glutam 7 gram-CaHMB 1.5 xjpc-nfapu-xd-min oral pwd pkt (Mauricio (with collagen)) 1 packet PO BIDCM #0 ea 05/16/24 insulin lispro 100 unit/mL subcutaneous pen (Humalog KwikPen (U-100) Insulin) 7 unit (0.07 mL) subcut TIDAC #0 mL 05/16/24 menthol 0.44 %-zinc oxide 20.6 % topical ointment (Calmoseptine) 1 applic topical TID #0 grams 05/16/24 nystatin 100,000 unit/gram topical powder (Nyamyc) 1 applic topical BID #0 grams 05/16/24 piperacillin-tazobactam 3.375 gram/50 mL dextrose(iso-os) IV piggyback (Zosyn) 3.375 g (56.25 mL) IV Q8H 7 days 05/16/24 sennosides 8.6 mg-docusate sodium 50 mg tablet (Stool Softener-Stimulant Laxative) 2 tab PO BID PRN PRN Constipation #0 tabs 05/16/24 Hospital Course Operations None Procedures PICC line placement Summary of Care Provided Minutes Spent on Discharge: 35 Hospital Course: Patient presents with syncope. Patient was clinically dehydrated with a creatinine of 3.95, with a baseline of around 1. Patient was in ERICA and also had lower extremity cellulitis. He received IV fluids for his ERICA and his kidney function has steadily improved. Lower extremity wound cultures were polymicrobial from the . Patient admitted for similar at that time ERICA and other extremity wounds. Patient was seen by infectious disease and recommended pip-tazo through May 22. Patient will be discharged to [facility], in stable condition. Weight / BMI Weight Weight: 122 kg Body Mass Index (BMI) 37.6 ABG / Lab / Microbiology Data 05/16/24 07:20 05/16/24 07:20 Laboratory: Laboratory Results - last 24 hr 05/15/24 11:37: POC Glucose 106 05/15/24 16:05: POC Glucose 85 05/15/24 22:34: POC Glucose 77 05/16/24 05:41: POC Glucose 70 L 05/16/24 07:20: WBC 6.0, RBC 3.10 L, Hgb 8.8 L, Hct 27.0 L, MCV 87.1, MCH 28.4, MCHC 32.6, RDW Std Deviation 49.7 H, RDW Coeff of Henri 15.7 H, Plt Count 180, MPV 8.7, Immature Gran % (Auto) 1.200 H, Neut % (Auto) 72.4 H, Lymph % (Auto) 16.2 L , [place] % (Auto) 6.2, Eos % (Auto) 3.7, Baso % (Auto) 0.3, Absolute Neuts (auto) 4.3, Absolute Lymphs (auto) 0.97, Nucleated RBC % 0, Sodium 139, Potassium 3.3 L , Chloride 112 H, Carbon Dioxide 23.0, Anion Gap 4 L, BUN 24 H, Creatinine 1.04, Estim Creat Clear Calc 100.41, Est GFR (MDRD) Af Amer 93, Est GFR (MDRD) Non-Af 77, BUN/Creatinine Ratio 23.1 H, Glucose 79, Calcium 8.2 L 05/16/24 07:36: POC Glucose 71 L 05/16/24 09:02: POC Glucose 106 05/16/24 11:25: POC Glucose 180 H Microbiology: Microbiology 05/13/24 14:40 Blood Culture (Wb) - Anticubital Right Blood Culture - Preliminary No growth in 48 hours. 05/13/24 14:30 Blood Culture (Wb) - Left Forearm Blood Culture - Preliminary No growth in 48 hours. D/C Instructions Discharge Diet: 2000 Calorie Control Diet Meaningful Use Info Meaningful Use Meaningful Use Diagnoses (Choose all that apply): None applicable Ischemic Stroke Statin Dosing Therapy Reference: STATIN DOSE THERAPY REFERENCE: * Patients > 75 years receive moderate or high dose statin therapy. * Patients 75 years or YOUNGER should receive HIGH intensity statin dose unless contraindicated. You will be required to document reason for non-treatment if statin daily dose does not meet guidelines. HIGH DOSE STATIN THERAPY DAILY Atorvastatin > than or = to 40 mg Rosuvastatin > than or = to 20 mg Amlodipine + Atorvastatin > than or = to 2.5/40 mg Ezetimibe + Simvastatin 10/80 mg Simvastatin 80mg Discharge Plan Admission Admit Date/Time: 05/13/24 15:29 Primary Reason for Your Visit: cellulitis. ERICA Attending Provider: Morales Jacobsen Primary Care Provider: Taiwo Villarreal Consulting Providers: Jez Harmon; Rowena Cm Discharge Orders/Prescriptions Prescriptions: New Zosyn in dextrose (iso-osm) 3.375 gram/50 mL piggyback 3.375 g IV Q8H 7 Days Rx Instructions: stop date 05/22/24. Dx: pseudomonas infection. nystatin [Nyamyc] 100,000 unit/gram Powder 1 applic topical BID Qty: 0 0RF Protocol: *Topical Application Instructions APPLICATION INSTRUCTIONS: under abdominal flap insulin lispro [Humalog KwikPen Insulin] 100 unit/mL Insulin Pen 7 unit subcut TIDAC Qty: 0 0RF menthol-zinc oxide [Calmoseptine] 0.44-20.6 % Ointment 1 applic topical TID Qty: 0 0RF Protocol: *Topical Application Instructions APPLICATION INSTRUCTIONS: to diaper area Mauricio (with collagen) 7-7-1.5 gram Powder In Packet 1 packet PO BIDCM Qty: 0 0RF acetaminophen 325 mg Tablet 650 mg PO Q6H PRN PRN (Reason: Pain 1-10 Or Fever >100.7) Qty: 0 0RF sennosides-docusate sodium [Stool Softener-Stimulant Laxat] 8.6-50 mg Tablet 2 tab PO BID PRN PRN (Reason: Constipation) Qty: 0 0RF Continued furosemide 40 mg tablet 40 mg PO DAILY pravastatin 40 mg tablet 40 mg PO DAILY insulin glargine-yfgn 100 unit/mL (3 mL) Insulin Pen 35 unit subcut BID Qty: 0 0RF duloxetine [Cymbalta] 60 mg capsule,delayed release(DR/EC) 60 mg PO DAILY Qty: 1 0RF Discontinued amoxicillin 500 mg Capsule 500 mg PO Q8 Qty: 16 0RF Rx Instructions: Start on 05/07/2024 levofloxacin 500 mg Tablet 500 mg PO DAILY@0600 Qty: 5 0RF Rx Instructions: Started on 05/08/2024 insulin lispro [Humalog KwikPen Insulin] 100 unit/mL Insulin Pen 15 unit subcut TIDAC Qty: 0 0RF lisinopril 20 mg Tablet 10 mg PO DAILY Qty: 30 0RF Novolin R FlexPen 100 unit/mL (3 mL) insulin pen 15 unit subcut TID Qty: 15 0RF lisinopril 20 mg tablet 10 mg PO DAILY Qty: 30 0RF Rx Instructions: One half tab daily Referrals / Follow Up: Amandeep [facility] MD [Non-Staff] - Taiwo Villarreal MD [Primary Care Provider] - Disposition Disposition (needs filled in before D/C Order can be placed): [facility] Charges/Coding Visit Charges Inpatient E&M: 83952 Disch Hosp >30min
[2024-05-16] MEDS: Potassium Chloride Oral Tablet 20 MEQ 40 MEQ PO (13:53)
--- NOTE | 2024-05-16 14:01 | PHA.DC.MR.R ---
Pharmacy [place] Med Reconciliation Pharmacy Service has performed discharge medication reconciliation for this patient. The patient's discharge medication list was reviewed for discrepancies and discrepancies were resolved. Medications at Discharge Home Medications furosemide 40 mg tablet 40 mg PO DAILY EDEMA 05/03/24 pravastatin 40 mg tablet 40 mg PO DAILY CHOLESTEROL 05/03/24 insulin glargine-yfgn 100 unit/mL (3 mL) subcutaneous pen 35 unit (0.35 mL) subcut BID #0 mL 05/07/24 duloxetine 60 mg capsule,delayed release (Cymbalta) 60 mg PO DAILY #1 cap 05/08/24 acetaminophen 325 mg tablet 650 mg (2 x 325 mg) PO Q6H PRN PRN Pain 1-10 Or Fever >100.7 #0 tabs 05/16/24 arginine 7 gram-glutam 7 gram-CaHMB 1.5 dcpw-llyqa-mi-min oral pwd pkt (Mauricio (with collagen)) 1 packet PO BIDCM #0 ea 05/16/24 insulin lispro 100 unit/mL subcutaneous pen (Humalog KwikPen (U-100) Insulin) 7 unit (0.07 mL) subcut TIDAC #0 mL 05/16/24 menthol 0.44 %-zinc oxide 20.6 % topical ointment (Calmoseptine) 1 applic topical TID #0 grams 05/16/24 nystatin 100,000 unit/gram topical powder (Nyamyc) 1 applic topical BID #0 grams 05/16/24 piperacillin-tazobactam 3.375 gram/50 mL dextrose(iso-os) IV piggyback (Zosyn) 3.375 g (56.25 mL) IV Q8H 7 days 05/16/24 sennosides 8.6 mg-docusate sodium 50 mg tablet (Stool Softener-Stimulant Laxative) 2 tab PO BID PRN PRN Constipation #0 tabs 05/16/24
--- NOTE | 2024-05-16 14:28 | CASEMGMT ---
Addendum entered by Letha Silva 05/16/24 15:51: Social Work Level of Care received. Pt is ready for dc to [facility]. DC senior agricultural assistant notified. CEZAR Esposito Original Note: Social Work Per Breanna with [facility], pt's pending Medicaid #[id number]. [facility] accepted pt, physician updated and pt is ready for dc today. PASRR completed in [facility] and Level of Care submitted. Pt will required PICC line placement and return of level of care prior to discharge. DC senior agricultural assistant updated and to notify [facility] of planned discharge for today. CEZAR Espinosa
--- NOTE | 2024-05-16 15:31 | PCM.OP.PRO ---
Procedure Report Date of Procedure: 05/16/24 Assessment & Plan Assessment/Plan (1) Bilateral lower leg cellulitis: Procedures Radiology Radiology Access Procedures: PICC Procedure Time Out Time Out Informed consent given: Yes Consent signed: Yes Time out checklist: patient, procedure, site marked/identified, positioning of patient, supplies available and allergies confirmed Time out verified: Yes Time out date: 05/16/24 Time out time: 14:45 PICC Line Consent Screening tool completed:: Yes Consent obtained:: Yes Consent given by (patient or responsible constitution party):: PATIENT Line successful (if no, document why in comments):: Yes Insertion Reason for Insertion: Vending Machine Repairer Medication Date of Insertion: 05/16/24 Ok to use: Yes Type of PICC inserted: Single Power PICC PICC Lot #: [id number] PICC Reference #: [id number] Microintroducer Used: Yes (in kit) Ultrasound/Equipment Used: Probe Cover Kit Trimmed Length (cm): 48 Insertion Length (cm): 47 Exposed Length (cm): 1 Tip Placement: Caval Atrial Junction Placement Confirmation: 3CG Insertion Vein: Right Basilic Insertion Attempts: 1 Local Anesthesia Used: Lidocaine 1% (in kit) Dressing Applied: Statlock and Tegaderm CHG Arm Measurement above site (in cm): 34 Patient Tolerated Procedure: Well Threading Difficulties: No Comments Comment: Patient identity was verified with two patient identifiers. Informed consent was obtained and time-out was completed. Hands were sanitized. The patient was positioned supine with right arm at 90 degrees. The patient's upper arm vasculature was assessed using ultrasound. Patency of the right basilic vein was confirmed and the vein was externally marked. An external measurement was obtained of 48 cm. External leads were applied to the patient's right upper chest and laterally and inferior of the umbilicus on the mid axillary line. Cap, mask, and prep gloves were donned. The underdrape was placed under the patient's arm. The site was prepped with chlorhexidine, and tourniquet was loosely applied. Prep gloves were discarded, and hands were sanitized. The sterile kit was opened with additional supplies dropped in. Sterile gown and gloves were donned, and the patient was draped. The sterile kit was assembled with needle, introducer, needless connector, and catheter lumen flushed with sterile normal saline. The marked site of insertion was anesthetized with 1% lidocaine from the kit. Patient tolerated well. The right basilic vein was then accessed using ultrasound guidance and guidewire was inserted to safety rufina. The tourniquet was released. The access needle was removed while securing the guidewire in place. The site was again anesthetized with 1% lidocaine, prior to insertion of introducer sheath and dilator. Patient tolerated the insertion well. The catheter was trimmed to a length of 48 cm. Using 3C guidance, the catheter was then inserted through the introducer sheath, slowly. There was no resistance on insertion. The catheter followed the expected course of the vessel using 3CG tracking. The introducer sheath was retracted and peeled away, incrementally, while keeping the catheter secured. Maximal p-wave, without deflection, confirming placement in the cavoatrial junction, was obtained at an insertion length of 47 cm, leaving 1 cm external. The stylet was removed. A flushed needleless connector was attached to the lumen. Aspiration of the lumen was performed to remove any air and confirm blood return. Blood return was verified and the lumen was flushed with 10 ml of sterile normal saline in a pulsatile fashion. The lumen was clamped with the last pulsed flush. Total sterile flushes used for the insertion was 6 10 ml syringes, 1 from the kit. Finally, the insertion site was cleaned with chlorhexidine, and the catheter was secured using a StatLock. The site was covered with a Tegaderm CHG Dressing and disinfecting caps were applied. Baseline arm circumference was obtained at the insertion site and measured 34 cm. The patient was provided with a patient education handout on PICC line care of infection prevention, heavy lifting restriction, maintaining mobility, and watching for any signs of infection. The charge nurse is aware that the PICC line is ready for use.
--- NOTE | 2024-05-16 15:47 | CASEMGMT ---
Discharge Planning Discharge orders, signed med list, loc, and transport time sent to [facility] via [facility]. Physicians will transport patient by wheelchair at 6p. Nursing, SW, and patient updated. Patient will call his . Deandra Estrada DC Planning Asst.
[2024-05-16 17:13] LABS: Bedside Glucose 171 mg/dL (74-106)
== END 2024-05-16 17:30 | disposition skilled nursing facility (03) | DRG 640 ==
LOC: ED 12:43 → MS3 05-14 09:00
PROVIDERS: Admitting Provider Internal Medicine; Emergency Provider Emergency Medicine; PCP Internal Medicine
DX: E86.0 Dehydration (principal); G92.8 Other toxic encephalopathy; N17.9 Acute kidney failure, unspecified; L03.115 Cellulitis of right lower limb; L03.116 Cellulitis of left lower limb; E87.20 Acidosis, unspecified; E11.22 Type 2 diabetes mellitus with diabetic chronic kidney disease; I95.9 Hypotension, unspecified; E87.1 Hypo-osmolality and hyponatremia; Z79.4 Long term (current) use of insulin; E11.65 Type 2 diabetes mellitus with hyperglycemia; F32.A Depression, unspecified; I12.9 Hypertensive chronic kidney disease with stage 1 through stage 4 chronic kidney disease, or unspecified chronic kidney disease; N18.2 Chronic kidney disease, stage 2 (mild); G47.33 Obstructive sleep apnea (adult) (pediatric); E78.5 Hyperlipidemia, unspecified; D72.829 Elevated white blood cell count, unspecified; E87.8 Other disorders of electrolyte and fluid balance, not elsewhere classified; E87.6 Hypokalemia; I87.2 Venous insufficiency (chronic) (peripheral); E66.9 Obesity, unspecified; B37.2 Candidiasis of skin and nail; Z68.37 Body mass index [BMI] 37.0-37.9, adult; Z85.038 Personal history of other malignant neoplasm of large intestine; R55 Syncope and collapse
CPT/HCPCS: 36415; 36569; 36600; 70450; 71045; 74176; 80048; 80053; 80076; 82009; 82803; 82962; 83605; 83735; 84100; 84484; 85025; 87040; 93005; 93970; 94668; 97162; 97166; 97535; 97802; 99252; 99285; J2185; J7030; J7040; J7050; J7120; A4216; G0463

== ENCOUNTER 2025-10-28 11:29 | Outpatient (RCR) | payer MEDICARE, SELFPAY ==
--- NOTE | 2025-10-29 08:59 | HP.FCE ---
Task Lift Floor (Occasional 1-33% of Day): 45# Floor (Frequent 34-66% of Day): 23# Floor (Constant 67-100% of Day): NA Floor PDL: Light-Medium Knee (Occasional 1-33% of Day): 45# Knee (Frequent 34-66% of Day): 23# Knee (Constant 67-100% of Day): NA Knee PDL: Light-Medium Waist (Occasional 1-33% of Day): 40# Waist (Frequent 34-66% of Day): 20# Waist (Constant 67-100% of Day): NA Waist PDL: Light-Medium Shoulder (Occasional 1-33% of Day): 35# Shoulder (Frequent 34-66% of Day): 18# Shoulder (Constant 67-100% of Day): NA Shoulder PDL: Light-Medium Overhead (Occasional 1-33% of Day): 10# Overhead (Frequent 34-66% of Day): NA Overhead (Constant 67-100% of Day): NA Overhead PDL: Sedentary Work Activity/Posture Bending: Occasional Ability (1-33% of day) Squatting: Occasional Ability (1-33% of day) Comments: with external support Kneeling: No Ablility (0% of day) Reaching out: Occasional Ability (1-33% of day) Comments: performed while sitting Reaching up: Occasional Ability (1-33% of day) Comments: performed while sitting Sitting: Frequent Ability (34-66% of day) Walking: Occasional Ability (1-33% of day) Standing: Occasional Ability (1-33% of day) Reference Reference: Duration Sedentary Sedentary Light Light Light Medium Medium Medium Heavy Very Heavy Heavy Occasional (0-33% of day) Frequent (34-66% of day) Constant (67-100% of day) 10 # Negligible Negligible 15 # 8 # Negligible 20 # 10# Negli. 35 # 18 # 7 # 50 # 25 # 10 # 75 # 100 # >100 # 38 # 50 # >50 # 15 # 20 # >20 # Patient Information Height: 1.78 m Weight:: 108.862 kg Hand Dominance: right Medical History Medical History Including Restrictions: pt arrives currently on disability for his neck and back. Pt arrives with new order for physical performance test. pt states he needs this done to keep his disability. pt states in 2021 he has had spinal stenosis of lumbar region with neurogenic claudication. Pt also dx with neck pain. Pt states he underwent neck sx in [address]. [address] Ding. pt is unsure what they did in his neck. pt states he will have MRI for his lumbar spine and consult with the surgeon to see what his next step is for that dx. pt states he feels the numbness/tingling in his LE and arms continues to get worse. Pt states he has lost over one hundred pounds and feels weakness in UB and LB despite the loss of weight. pt is a tobacco user chews ( 45+ years) pt does not exercise on a regular basis, states he does not participate in any of his hobbies either as this was participating in [employer] pulls. pt states the constant tingling is very bothersome. Diagnoses Diagnoses: Spinal Stenosis of lumbar region with neurogenic claudication neck pain DMII dx about 10 years ago controlled with medication now control with diet. Symptoms Symptoms: bilateral leg pain neck pain low back pain bilateral arm tingling/numbness bilateral leg weakness bilateral leg tingling/numbness Fatigue Pain Pain: pt reports current pain level is more of the discomfort with numbness. / pt states he does take Tylenol once in a while. Work History Work History: Pt states he was last employed by [employer] for about 17 years. 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 This required pt to lift at least 75-100#. pt was having difficulty with performing his job due to weakness, numbness and could not perform his job duties any longer. Pt states his last day of work was about 3 years ago. pt states he lost his job due to his inability to perform his job duties. Behavioral Behavioral: pt participated and put good effort into requested tasks. ADLS ADLS: Pt lives in an ground floor Apt. pt lives alone. Pt has a tub shower- with grab bars pt states he can bath and dress at a HEENA level. pt drives [place], grocery shopping, cleaning and laundry. Physical Examination ROM: pt demo with sight limitations in neck extension and lateral bend pt demo with all other ROM WFL Strength: fit2 peak force muscle testing shoulder flexion right 15# left 15# shoulder extension right 30# left 25# Biceps right 19.6# left 19.6# Triceps right 21# left 24# Hip flexion right 27# left 25# Hamstring right 34# left 33# Quadriceps right 25.6# left 28.7# Right Flight Engineer Manager Strength Average: 55.00 Right Flight Engineer Manager Strength Percentile: <.9% Left Flight Engineer Manager Strength Average: 58.33 Left Flight Engineer Manager Strength Percentile: <5.6% Right Lateral Pinch Average: 3.33 Right Lateral Pinch Percentile: <10% Left Lateral Pinch Average: 4.00 Left Lateral Pinch Percentile: <10% Right Tripod Pinch Average: 5.33 Right Tripod Pinch Percentile: <10% Left Tripod Pinch Average: 4.33 Left Tripod Pinch Percentile: <10% Comments: pt demo with weakness of bilateral environmental health and safety leader and pinch less than the mean average for his age and gender. Sensation: monofilament testing for fingers 2 point discrimination for bilateral feet: pt inconsistent with feeling of 1 or 2 point on bilateral feet Fine Motor: 9 hole peg test right 37 seconds left 39.45 seconds Balance: 7" Non Material Handling Activities Bending: pt demo the ability bend forward 3/3x, 10/10x pt unable to bend forward rapidly pt states states muscles in his legs began to feel weak pts heart rate 87 pt can bend forward on low occasional ability Squatting: pt demo the ability to squat 3/3x, 10/10, pt unable to squat rapidly with use of external support pt can squat on low occasional ability Kneeling: unable Reaching out/up: Pt completed while sitting reaching out /up 3/3x, 10/10x and 10/10x rapidly pts heart rate 84 pt can sit and reach out/up on occasional ability but with tingling in hands would make it difficulty for pts to hold onto objects Walking: pt amblates with a cane to antalgic step pattern heart rate 109 feet are numb and tingling pt SOB and coughing following ambulation of 5 min. pt can ambulate on occasional ability with use of assistive device Standing: pt demo the ability to stand for 4 min but will reach for external support pt can stand on occasional ability Sitting: pt demo the ability to sit for 45 min with no apparent or expressed discomfort Climbing Stairs: pt demo the ability to ascend and descend 10 steps with use of hand rail and his cane with a reciprocal step pattern with fair ability Dynamic Occasional Lifting Capacity Floor Lift: pt demo the ability to lift 45# maximally from this level with fair lifting mechanics. Knee Lift: pt demo the ability to lift 45# maximally from this level with fair lifting mechanics. Waist Lift: pt demo the ability to lift 40# maximally from this level with fair lifting mechanics. Shoulder Lift: pt demo the ability to lift 30# maximally from this level with fair lifting mechanics. Overhead Lift: pt demo the ability to lift 10# maximally from this level with fair lifting mechanics. Carrying: pt able to do a one arm carry as he does use a assistive cane to support his balance. pt can carry 10# without difficulty Comments: heart rate 83 to 110 throughout assessment pt reports increase in bilateral LE and UE tingling with increase activity
--- NOTE | 2025-10-29 08:59 | HP.OTFCE.D ---
FCE D/C Summary Discharge text: ROBERT SANDERS IVELISSE was seen for a one time visit for an FCE on 10/28/25 and is discharged.
== END 2025-10-28 19:00 | disposition home or self-care (01) ==
LOC: OT 11:29
PROVIDERS: PCP Internal Medicine
DX: M48.062 Spinal stenosis, lumbar region with neurogenic claudication (principal); M54.2 Cervicalgia
CPT/HCPCS: 97750